=== PATIENT | male | born 1950 | race Caucasian/White ===

== ENCOUNTER 2021-01-25 11:23 | Outpatient (REF) | payer MEDICARE, SELFPAY ==
[2021-01-25 13:05] LABS: Estimated Average Glucose 171 mg/dL; Hemoglobin A1c % 7.6 %
[2021-01-25 13:20] LABS: Alanine Aminotransferase 41 U/L (0-40); Albumin Level 4.2 g/dL (3.5-5.0); Alkaline Phosphatase 75 U/L (39-117); Anion Gap 13 (12-20); Aspartate Amino Transferase 30 U/L (5-37); Bilirubin Total 0.7 mg/dL (0.0-1.0); Blood Urea Nitrogen 24 mg/dL (9-16); Calcium 8.5 mg/dL (8.4-10.2); Carbon Dioxide 24 mmol/L (22-29); Chloride 102 mmol/L (96-108); Cholesterol 155 mg/dL; Estimated Glomerular Filt Rate > 60; Glucose Fasting 151 mg/dL (60-99); HDL Cholesterol 58 mg/dL; LDL Cholesterol Calculated 70 mg/dl; Potassium 4.4 mmol/L (3.3-5.1); Sodium 135 mmol/L (135-145); Total Protein 6.1 g/dL (6.5-8.0); Triglycerides 137 mg/dL
== END 2021-01-25 11:24 | disposition home or self-care (01) ==
LOC: HO.MANLR 11:23
PROVIDERS: PCP Internal Medicine; Visit Provider Internal Medicine
DX: E10.8 Type 1 diabetes mellitus with unspecified complications (principal)
CPT/HCPCS: 36415; 80053; 80061; 83036

== ENCOUNTER 2021-05-26 08:18 | Outpatient (REF) | payer MEDICARE, SELFPAY ==
[2021-05-26 09:26] LABS: Estimated Average Glucose 154 mg/dL
[2021-05-26 09:39] LABS: Alanine Aminotransferase 18 U/L (0-40); Albumin Level 4.1 g/dL (3.5-5.0); Alkaline Phosphatase 69 U/L (39-117); Anion Gap 12 (12-20); Aspartate Amino Transferase 16 U/L (5-37); Bilirubin Total 0.5 mg/dL (0.0-1.0); Blood Urea Nitrogen 16 mg/dL (9-16); Calcium 9.5 mg/dL (8.4-10.2); Carbon Dioxide 25 mmol/L (22-29); Chloride 107 mmol/L (96-108); Estimated Glomerular Filt Rate > 60; Glucose Random 168 mg/dL (60-115); Potassium 4.7 mmol/L (3.3-5.1); Sodium 139 mmol/L (135-145); Total Protein 6.7 g/dL (6.5-8.0)
[2021-05-26 09:56] LABS: ~HepC Num1 0.11 S/CO (0.00-0.79); ~Hepatitis C Antibody Nonreactive (Nonreactive)
[2021-05-26 10:32] LABS: Creatinine Urine 32.78 mg/dL; Microalbum/Creatinine Ratio Ur 21.3 ug/mg cr
== END 2021-05-26 08:19 | disposition home or self-care (01) ==
LOC: HO.LAB 08:18
PROVIDERS: PCP Internal Medicine; Visit Provider Internal Medicine
DX: Z11.59 Encounter for screening for other viral diseases (principal); E10.8 Type 1 diabetes mellitus with unspecified complications
CPT/HCPCS: 36415; 80053; 82043; 83036; 86803

== ENCOUNTER 2022-01-16 10:27 | Outpatient (REF) | payer MEDICARE, SELFPAY ==
[2022-01-16 13:43] LABS: Estimated Average Glucose 163 mg/dL; Hemoglobin A1c % 7.3 %
[2022-01-16 13:45] LABS: Alanine Aminotransferase 21 U/L (0-40); Albumin Level 4.2 g/dL (3.5-5.0); Alkaline Phosphatase 80 U/L (39-117); Anion Gap 13 (12-20); Aspartate Amino Transferase 17 U/L (5-37); Bilirubin Total 0.8 mg/dL (0.0-1.0); Blood Urea Nitrogen 13 mg/dL (9-16); Calcium 9.4 mg/dL (8.4-10.2); Carbon Dioxide 24 mmol/L (22-29); Chloride 103 mmol/L (96-108); Cholesterol 254 mg/dL; Estimated Glomerular Filt Rate > 60; Glucose Fasting 151 mg/dL (60-99); HDL Cholesterol 48 mg/dL; LDL Cholesterol Calculated 170 mg/dl; Potassium 4.3 mmol/L (3.3-5.1); Sodium 136 mmol/L (135-145); Triglycerides 182 mg/dL
[2022-01-16 14:13] LABS: Creatinine Urine 15.96 mg/dL; Microalbum/Creatinine Ratio Ur 93.9 ug/mg cr
== END 2022-01-16 10:28 | disposition home or self-care (01) ==
LOC: HO.MANLDS 10:27
PROVIDERS: PCP Internal Medicine; Visit Provider Internal Medicine
DX: E10.8 Type 1 diabetes mellitus with unspecified complications (principal)
CPT/HCPCS: 36415; 80053; 80061; 82043; 83036

== ENCOUNTER 2022-07-24 16:19 | Outpatient (REF) | payer MEDICARE, SELFPAY | END 2022-07-24 16:20 | disposition home or self-care (01) | LOC: HO.MANLDS 16:19 | PROVIDERS: Visit Provider Internal Medicine | DX: Z13.89 Encounter for screening for other disorder (principal) ==

== ENCOUNTER 2022-07-25 14:32 | Outpatient (REF) | payer MEDICARE, SELFPAY ==
[2022-07-25 11:38] LABS: Estimated Average Glucose 146 mg/dL; Hemoglobin A1c % 6.7 %
[2022-07-25 12:05] LABS: Creatinine Urine 25.07 mg/dL; Microalbum/Creatinine Ratio Ur 103.7 ug/mg cr
[2022-07-25 12:18] LABS: Alanine Aminotransferase 23 U/L (0-40); Albumin Level 4.1 g/dL (3.5-5.0); Alkaline Phosphatase 60 U/L (39-117); Anion Gap 17 (12-20); Aspartate Amino Transferase 16 U/L (5-37); Bilirubin Total 0.5 mg/dL (0.0-1.0); Blood Urea Nitrogen 16 mg/dL (9-16); Calcium 9.4 mg/dL (8.4-10.2); Carbon Dioxide 26 mmol/L (22-29); Chloride 102 mmol/L (96-108); Cholesterol 260 mg/dL; Estimated Glomerular Filt Rate > 60; Glucose Random 145 mg/dL (60-115); HDL Cholesterol 76 mg/dL; LDL Cholesterol Calculated 161 mg/dl; Potassium 5.1 mmol/L (3.3-5.1); Sodium 140 mmol/L (135-145); Total Protein 6.8 g/dL (6.5-8.0); Triglycerides 115 mg/dL
== END 2022-07-25 14:33 | disposition home or self-care (01) ==
LOC: HO.MANLDS 14:32
PROVIDERS: Visit Provider Internal Medicine
DX: E10.8 Type 1 diabetes mellitus with unspecified complications (principal)
CPT/HCPCS: 36415; 80053; 80061; 82043; 83036

== ENCOUNTER 2022-11-27 15:09 | Outpatient (REF) | payer MEDICARE, SELFPAY ==
[2022-11-28 05:09] LABS: Estimated Average Glucose 166 mg/dL; Hemoglobin A1c % 7.4 %
== END 2022-11-27 15:10 | disposition home or self-care (01) ==
LOC: HO.MANLDS 15:09
PROVIDERS: Visit Provider Internal Medicine
DX: E10.8 Type 1 diabetes mellitus with unspecified complications (principal)
CPT/HCPCS: 36415; 83036

== ENCOUNTER 2023-02-21 13:59 | Emergency (ER) | payer MEDICARE, SELFPAY ==
--- NOTE | ~2023-02-21 | CT_ITS ---
EXAMINATION: CT ANGIOGRAM OF THE CHEST WITH AND WITHOUT CONTRAST (CT PULMONARY ANGIOGRAM FOR PE) CLINICAL INFORMATION: Reason for Exam acute on chronic SOB COMPARISON: None available. TECHNIQUE: Prior to contrast administration, noncontrast localization images were obtained. Subsequently, multidetector volumetric imaging was performed from the thoracic inlet to below the diaphragms following the administration of 65 mL Omnipaque 350 intravenous contrast. No contrast reaction reported Sagittal, coronal, and MIP oblique sagittal reformatted images were obtained on the CT workstation, uploaded to PACS, and reviewed. This CT examination was performed using dose optimization techniques as appropriate, variously including the following: *Automated exposure control *Adjustment of mA and/or kV according to patient size (this includes techniques or standardized protocols for targeted exams where dose is matched to indication/reason for exam; i.e. extremities or head) *Use of iterative reconstruction technique Total exam dose-length product 381 mGy-cm FINDINGS: QUALITY OF STUDY/CONTRAST BOLUS: Satisfactory. PULMONARY ARTERIES: No acute pulmonary emboli. THORACIC AORTA: No thoracic aortic aneurysm or dissection. LUNG: Central airways are patent. No significant bronchial wall thickening is seen. No bronchiectasis. No significant confluent parenchymal disease. There is bibasilar dependent groundglass opacity present consistent with dependent atelectasis. There are bilateral scattered sub-4 mm densities. There is a region of discoid density seen within the right middle lobe medially adjacent to the pleura likely representing atelectasis or scarring. There is a spiculated nodule seen within the left upper lobe with pleural attachment as well as attachment to major fissure. The lesion is not calcified and measures approximately 1.5 x 1.2 x 1.4 cm in size. This can be seen on image [address] series #7. PLEURA: No pleural effusion or pneumothorax. MEDIASTINUM: Heart normal size. No pericardial effusion. No mediastinal or hilar lymphadenopathy identified. No evidence of septal bowing or right heart strain. CORONARY ARTERY CALCIFICATION: Trace identified. CHEST WALL/AXILLA: No axillary or internal mammary lymphadenopathy. OSSEOUS STRUCTURES: No acute or suspicious osseous abnormality. 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 UPPER ABDOMEN: There are right renal cyst present. No adrenal gland lesions identified. No reflux of contrast into the hepatic veins to suggest elevated right heart pressures. CT/CT angio chest PE protocol IMPRESSION: No evidence of acute pulmonary artery embolism. No evidence of thoracic aortic dissection or aneurysm. Suspicious left upper lobe lung lesion for which PET/CT would be of help in further evaluation. VTE: negative
--- NOTE | ~2023-02-21 | XR_ITS ---
EXAMINATION: XR CHEST CLINICAL INFORMATION: Chest pain COMPARISON: None available. TECHNIQUE: 2 views of the chest were obtained. FINDINGS: The lungs are well-expanded and clear. The heart size and pulmonary vascularity is normal. There is moderate spondylosis right thoracic spine with ossification of anterior longitudinal ligament. There is posterior hardware lower cervical spine. XR/XR chest 2V IMPRESSION: No acute cardiopulmonary process seen.
--- NOTE | 2023-02-21 14:01 | ED_ITS ---
HPI - SOB/Dyspnea General Chief Complaint: Upper Respiratory Symptoms <Marina Bartlett NP - Last Filed: 02/21/23 14:06> Stated Complaint: SOB <Marina Bartlett NP - Last Filed: 02/21/23 14:06> Time Seen by Provider: 02/21/23 14:30 <Marina Bartlett NP - Last Filed: 02/21/23 14:06> Source: patient <Pola Lancaster MD - Last Filed: 02/21/23 17:19> Mode of arrival: ambulatory <Pola Lancaster MD - Last Filed: 02/21/23 17:19> Limitations: no limitations <Pola Lancaster MD - Last Filed: 02/21/23 17:19> History of Present Illness HPI Narrative: 72-year-old male with history of diabetes presents with shortness of breath. Patient had COVID in October of last year. Since then patient complains of long COVID symptoms. Symptoms include brain fog, shortness of marichuy ath, fatigue, myalgias. Symptoms are fairly constant. There is no clear relieving or exacerbating features regarding most of his symptoms. However, his shortness of breath has become progressively worse over recent times. He describes the symptoms as severe. Even tiny issues can cause him to be short of breath. Denies any chest pain or coughing. She has had no fevers or chills. Patient has chronic bilateral lower extremity edema which is not changed from previous. Patient denies a history of PE or DVT. He is not currently on any blood thinning medications. <Pola Lancaster MD - Last Filed: 02/21/23 17:19> Related Data Home Medications: Previous Rx's Medication Instructions Recorded albuterol sulfate 90 mcg/actuation 1 inh inhalation QID PRN shortness 02/21/23 aerosol inhaler of breath or wheezing #8.5 grams fluticasone 250 mcg-salmeterol 50 1 inh inhalation Q12H #1 ea 02/21/23 mcg/dose blistr powdr for inhalation (Advair Diskus) <Marina Bartlett NP - Last Filed: 02/21/23 14:06> Allergies/Adverse Reactions: Allergies Allergy/AdvReac Type Severity Reaction Status Date / Time NSAIDS (Non-Steroidal AdvReac Intermediate DIARRHEA Unverified 04/04/21 11:24 Anti-Inflamma [NSAIDS (NON-STEROIDAL ANTI-INFLAMMA] <Marina Bartlett NP - Last Filed: 02/21/23 14:06> FOR[facility]LY [facility] Social History Social History: Social History Advance Directives: No <Marina Bartlett NP - Last Filed: 02/21/23 14:06> Physical Exam Vital Signs: Vital Signs: Last Vital Signs Temp 98 F 02/21/23 14:04 Pulse 76 02/21/23 16:20 Resp 18 02/21/23 16:20 BP 147/70 H 02/21/23 14:04 Pulse Ox 98 02/21/23 14:04 O2 Del Method Room Air 02/21/23 14:04 BMI result Body Mass Index 30.9 <Marina Bartlett NP - Last Filed: 02/21/23 14:06> Vital Signs: Last Vital Signs Temp 98 F 02/21/23 14:04 Pulse 76 02/21/23 16:20 Resp 18 02/21/23 16:20 BP 147/70 H 02/21/23 14:04 Pulse Ox 98 02/21/23 14:04 O2 Del Method Room Air 02/21/23 14:04 BMI result Body Mass Index 30.9 <Pola Lancaster MD - Last Filed: 02/21/23 17:19> GEN: Well developed, no acute distress, alert, oriented, uncomfortable appearing HEENT: Normocephalic, atraumatic, normal external ears, nose appears normal, no oropharyngeal edema or exudates Eyes: Normal to appearance Neck: Supple, no lymphadenopathy Respiratory: Conversational dyspnea, prolonged expiration, expiratory wheezes Cardiovascular: Regular rate and rhythm, no murmurs rubs or gallops Abdomen: Soft, nontender, nondistended, no guarding, no rebound Back: No CVA tenderness Extremities: No clubbing cyanosis Neurologic: No focal neurologic deficits, cranial nerves 2-12 intact, strength is 5/5 bilaterally, gait normal Skin: No rash <Pola Lancaster MD - Last Filed: 02/21/23 17:19> Course Course Course Narrative: This is a rapid medical exam. Deferred additional HPI, ROS, PE to primary provider. 72 yo male with history of HTN, DM, arthritis, IBS, who had COVID in October w/ subequent long haul COVID here with complaints of shortness of breath x several weeks, intermittent chest pain. NO fever, cough, leg swelling o r leg pain. WIll obtain labs, EKG, CXR, covid screen VSS <Marina Bartlett NP - Last Filed: 02/21/23 14:06> Reevaluation(s) Reevaluation #1: I have discussed results with the patient. I did recommend a course of oral steroids. Patient will likely not agree to this in follow-up. Will prescribe albuterol. Will recommend follow-up regarding abnormal finding in the left upper lobe. <Pola Lancaster MD - Last Filed: 02/21/23 17:19> Time: 17:10 <Pola Lancaster MD - Last Filed: 02/21/23 17:19> Medications Administered Discontinued Medications Generic Name Dose Route Start Last Admin Trade Name Freq PRN Reason Stop Dose Admin Albuterol Sulfate 2.5 mg 02/21/23 14:59 02/21/23 16:20 Albuterol Sulfate (0.083%) 2.5 Mg/3 Ml Vial.Neb INHALE 02/21/23 15:00 2.5 mg ONCE ONE Administration Iohexol 100 ml 02/21/23 15:16 02/21/23 15:16 Iohexol 350 Mg/Ml 100 Ml Infus..Btl IV 02/21/23 15:17 65 ml ONCE ONE Administration <Marina Bartlett NP - Last Filed: 02/21/23 14:06> Medications Administered Discontinued Medications Generic Name Dose Route Start Last Admin Trade Name Freq PRN Reason Stop Dose Admin Albuterol Sulfate 2.5 mg 02/21/23 14:59 02/21/23 16:20 Albuterol Sulfate (0.083%) 2.5 Mg/3 Ml Vial.Neb INHALE 02/21/23 15:00 2.5 mg ONCE ONE Administration Iohexol 100 ml 02/21/23 15:16 02/21/23 15:16 Iohexol 350 Mg/Ml 100 Ml Infus..Btl IV 02/21/23 15:17 65 ml ONCE ONE Administration <Pola Lancaster MD - Last Filed: 02/21/23 17:19> Medical Decision Making Medical Decision Making MDM Narrative: 72-year-old male with history of diabetes presents with long COVID symptoms. He presents today predominantly because of progressive shortness of breath. My evaluation, patient was conversational in short of breath, prolonged expiration and expiratory wheezes. His oxygen saturation is 98% on room air. He is not cyanotic. Differential diagnosis can include reactive airway disease, asthma, COPD, pulmonary embolus, dyspnea, pneumonia, CHF. Patient will have an extensive workup including a CT angiogram of the chest to rule out pulmonary embolus. <Pola Lancaster MD - Last Filed: 02/21/23 17:19> Differential Diagnosis Differential Diagnoses: The differential diagnosis associated with the presentation includes (PE, COPD, asthma, reactive airway disease, shortness of breath, pneumonia, CHF) <Pola Lancaster MD - Last Filed: 02/21/23 17:19> Acute dyspnea <Pola Lancaster MD - Last Filed: 02/21/23 17:19> Admission/Observation Consideration of admission/observation: Escalation of care including admission/observation considered <Pola Lancaster MD - Last Filed: 02/21/23 17:19> Lab Data MDM Lab Attestation statement: I reviewed the patient's lab results. <Pola Lancaster MD - Last Filed: 02/21/23 17:19> Result Diagrams: 02/21/23 14:31 02/21/23 14:31 <Marina Bartlett NP - Last Filed: 02/21/23 14:06> Labs: Lab Results 02/21/23 02/21/23 02/21/23 Range/Units 14:31 14:31 14:31 WBC 9.6 (4.8-10.8) X10*3/uL RBC 4.60 (4.60-5.80) X10*6/uL Hgb 14.2 (14.0-18.0) g/dl Hct 41.1 L (42.0-52.0) % MCV 89.3 (80.0-98.0) fL MCH 30.9 (27.0-33.0) pg MCHC 34.5 (31.0-36.0) g/dl RDW 12.2 (11.0-16.0) % Plt Count 317 (160-400) X10*3/uL MPV 9.0 L (9.4-12.4) fL Immature Gran % (Auto) 0.6 H (0.0-0.4) % Neut % (Auto) 79.1 H (45-73) % Lymph % (Auto) 12.5 L (20-40) % [place] % (Auto) 6.8 (2-11) % Eos % (Auto) 0.6 (0-4) % Baso % (Auto) 0.4 (0-2) % Lymph # (Auto) 1.2 (1.2-4.9) X10*3/uL [place] # (Auto) 0.7 (0.1-1.2) X10*3/uL Eos # (Auto) 0.1 (0.0-0.4) X10*3/uL Baso # (Auto) 0.0 (0.0-0.2) X10*3/uL Abs Immat Gran (auto) 0.06 H (0.00-0.03) X10*3/uL Absolute Neuts (auto) 7.6 (2.0-8.3) x10*3/uL Absolute Nucleated RBC 0.000 (0.0-0.012) X10*3/uL Nucleated RBC % (auto) 0.0 (0.0-0.2) /100WBC PT 11.1 (10.0-13.1) SEC INR 1.0 (0.9-1.1) Sodium 140 (135-145) mmol/L Potassium 4.4 (3.3-5.1) mmol/L Chloride 107 (96-108) mmol/L Carbon Dioxide 23 (22-29) mmol/L Anion Gap 14 (12-20) BUN 15 (9-16) mg/dL Creatinine 0.92 (0.5-1.4) mg/dL Estim Creat Clear Calc 85.2 Estimated GFR > 60 Random Glucose 190 H (60-115) mg/dL Calcium 9.4 (8.4-10.2) mg/dL Magnesium 2.0 (1.6-2.6) mg/dL Total Bilirubin 0.5 (0.0-1.0) mg/dL Direct Bilirubin 0.1 (0.0-0.5) mg/dL AST 37 (5-37) U/L ALT 50 H (0-40) U/L Alkaline Phosphatase 77 (39-117) U/L Troponin I High Sens (<3.5-35.0) ng/L B-Natriuretic Peptide (<100) pg/mL Total Protein 6.8 (6.5-8.0) g/dL Albumin 4.2 (3.5-5.0) g/dL 02/21/23 02/21/23 Range/Units 14:31 14:31 WBC (4.8-10.8) X10*3/uL RBC (4.60-5.80) X10*6/uL Hgb (14.0-18.0) g/dl Hct (42.0-52.0) % MCV (80.0-98.0) fL MCH (27.0-33.0) pg MCHC (31.0-36.0) g/dl RDW (11.0-16.0) % Plt Count (160-400) X10*3/uL MPV (9.4-12.4) fL Immature Gran % (Auto) (0.0-0.4) % Neut % (Auto) (45-73) % Lymph % (Auto) (20-40) % [place] % (Auto) (2-11) % Eos % (Auto) (0-4) % Baso % (Auto) (0-2) % Lymph # (Auto) (1.2-4.9) X10*3/uL [place] # (Auto) (0.1-1.2) X10*3/uL Eos # (Auto) (0.0-0.4) X10*3/uL Baso # (Auto) (0.0-0.2) X10*3/uL Abs Immat Gran (auto) (0.00-0.03) X10*3/uL Absolute Neuts (auto) (2.0-8.3) x10*3/uL Absolute Nucleated RBC (0.0-0.012) X10*3/uL Nucleated RBC % (auto) (0.0-0.2) /100WBC PT (10.0-13.1) SEC INR (0.9-1.1) Sodium (135-145) mmol/L Potassium (3.3-5.1) mmol/L Chloride (96-108) mmol/L Carbon Dioxide (22-29) mmol/L Anion Gap (12-20) BUN (9-16) mg/dL Creatinine (0.5-1.4) mg/dL Estim Creat Clear Calc Estimated GFR Random Glucose (60-115) mg/dL Calcium (8.4-10.2) mg/dL Magnesium (1.6-2.6) mg/dL Total Bilirubin (0.0-1.0) mg/dL Direct Bilirubin (0.0-0.5) mg/dL AST (5-37) U/L ALT (0-40) U/L Alkaline Phosphatase (39-117) U/L Troponin I High Sens < 2.7 (<3.5-35.0) ng/L B-Natriuretic Peptide < 10 (<100) pg/mL Total Protein (6.5-8.0) g/dL Albumin (3.5-5.0) g/dL <Marina Bartlett, INTERMODAL DISPATCHER - Last Filed: 02/21/23 14:06> Lab Results 02/21/23 02/21/23 02/21/23 Range/Units 14:31 14:31 14:31 WBC 9.6 (4.8-10.8) X10*3/uL RBC 4.60 (4.60-5.80) X10*6/uL Hgb 14.2 (14.0-18.0) g/dl Hct 41.1 L (42.0-52.0) % MCV 89.3 (80.0-98.0) fL MCH 30.9 (27.0-33.0) pg MCHC 34.5 (31.0-36.0) g/dl RDW 12.2 (11.0-16.0) % Plt Count 317 (160-400) X10*3/uL MPV 9.0 L (9.4-12.4) fL Immature Gran % (Auto) 0.6 H (0.0-0.4) % Neut % (Auto) 79.1 H (45-73) % Lymph % (Auto) 12.5 L (20-40) % [place] % (Auto) 6.8 (2-11) % Eos % (Auto) 0.6 (0-4) % Baso % (Auto) 0.4 (0-2) % Lymph # (Auto) 1.2 (1.2-4.9) X10*3/uL [place] # (Auto) 0.7 (0.1-1.2) X10*3/uL Eos # (Auto) 0.1 (0.0-0.4) X10*3/uL Baso # (Auto) 0.0 (0.0-0.2) X10*3/uL Abs Immat Gran (auto) 0.06 H (0.00-0.03) X10*3/uL Absolute Neuts (auto) 7.6 (2.0-8.3) x10*3/uL Absolute Nucleated RBC 0.000 (0.0-0.012) X10*3/uL Nucleated RBC % (auto) 0.0 (0.0-0.2) /100WBC PT 11.1 (10.0-13.1) SEC INR 1.0 (0.9-1.1) Sodium 140 (135-145) mmol/L Potassium 4.4 (3.3-5.1) mmol/L Chloride 107 (96-108) mmol/L Carbon Dioxide 23 (22-29) mmol/L Anion Gap 14 (12-20) BUN 15 (9-16) mg/dL Creatinine 0.92 (0.5-1.4) mg/dL Estim Creat Clear Calc 85.2 Estimated GFR > 60 Random Glucose 190 H (60-115) mg/dL Calcium 9.4 (8.4-10.2) mg/dL Magnesium 2.0 (1.6-2.6) mg/dL Total Bilirubin 0.5 (0.0-1.0) mg/dL Direct Bilirubin 0.1 (0.0-0.5) mg/dL AST 37 (5-37) U/L ALT 50 H (0-40) U/L Alkaline Phosphatase 77 (39-117) U/L Troponin I High Sens (<3.5-35.0) ng/L B-Natriuretic Peptide (<100) pg/mL Total Protein 6.8 (6.5-8.0) g/dL Albumin 4.2 (3.5-5.0) g/dL 02/21/23 02/21/23 Range/Units 14:31 14:31 WBC (4.8-10.8) X10*3/uL RBC (4.60-5.80) X10*6/uL Hgb (14.0-18.0) g/dl Hct (42.0-52.0) % MCV (80.0-98.0) fL MCH (27.0-33.0) pg MCHC (31.0-36.0) g/dl RDW (11.0-16.0) % Plt Count (160-400) X10*3/uL MPV (9.4-12.4) fL Immature Gran % (Auto) (0.0-0.4) % Neut % (Auto) (45-73) % Lymph % (Auto) (20-40) % [place] % (Auto) (2-11) % Eos % (Auto) (0-4) % Baso % (Auto) (0-2) % Lymph # (Auto) (1.2-4.9) X10*3/uL [place] # (Auto) (0.1-1.2) X10*3/uL Eos # (Auto) (0.0-0.4) X10*3/uL Baso # (Auto) (0.0-0.2) X10*3/uL Abs Immat Gran (auto) (0.00-0.03) X10*3/uL Absolute Neuts (auto) (2.0-8.3) x10*3/uL Absolute Nucleated RBC (0.0-0.012) X10*3/uL Nucleated RBC % (auto) (0.0-0.2) /100WBC PT (10.0-13.1) SEC INR (0.9-1.1) Sodium (135-145) mmol/L Potassium (3.3-5.1) mmol/L Chloride (96-108) mmol/L Carbon Dioxide (22-29) mmol/L Anion Gap (12-20) BUN (9-16) mg/dL Creatinine (0.5-1.4) mg/dL Estim Creat Clear Calc Estimated GFR Random Glucose (60-115) mg/dL Calcium (8.4-10.2) mg/dL Magnesium (1.6-2.6) mg/dL Total Bilirubin (0.0-1.0) mg/dL Direct Bilirubin (0.0-0.5) mg/dL AST (5-37) U/L ALT (0-40) U/L Alkaline Phosphatase (39-117) U/L Troponin I High Sens < 2.7 (<3.5-35.0) ng/L B-Natriuretic Peptide < 10 (<100) pg/mL Total Protein (6.5-8.0) g/dL Albumin (3.5-5.0) g/dL <Pola Lancaster MD - Last Filed: 02/21/23 17:19> Independent Interpretation I performed an independent interpretation of an: EKG (Normal sinus rhythm heart rate 84, left axis deviation, no acute ST elevations or depressions, incomplete right bundle-branch block, nonspecific T- wave changes no comparison available) and Plain X-Ray (Chest: No acute pulmonary disease) <Pola Lancaster MD - Last Filed: 02/21/23 17:19> Radiology Impression Discussion of test interpretation with radiology: I have reviewed the radiologist's reading. ( XR/XR chest 2V IMPRESSION: No acute cardiopulmonary process seen. Dictated By:Nadir Soares MDSigned By:<Electronically signed by Nadir Soares MD in [place]>02/21/23 [id number]) <Pola Lancaster MD - Last Filed: 02/21/23 17:19> Radiologist Impression: CT scan official report shows no evidence of acute pulmonary artery embolism. There is no evidence of thoracic aortic dissection or aneurysm. There is a suspicious left upper lobe lung lesion which they recommended PET scan. <Pola Lancaster MD - Last Filed: 02/21/23 17:19> Chronic Conditions Patient?s care impacted by: Diabetes <Pola Lancaster MD - Last Filed: 02/21/23 17:19> Discharge Plan Discharge Clinical Impression: COVID-19 long hauler, Acute dyspnea, Abnormal CT lung screening <Marina Bartlett NP - Last Filed: 02/21/23 14:06> Patient Disposition: Home, Self-Care <Marina Bartlett NP - Last Filed: 02/21/23 14:06> Instructions: How to Use a Metered-Dose Inhaler (ED), Wheezing (ED) <Marina Bartlett NP - Last Filed: 02/21/23 14:06> Additional Instructions: You had a CT scan today which did identify a lesion in the left upper lobe. They are recommending a PET/CT scan for further evaluation. He should discuss this with her primary care provider. He consider follow-up with a industrial organization manager as well. <Marina Bartlett NP - Last Filed: 02/21/23 14:06> Prescriptions: New fluticasone propion-salmeterol [Advair Diskus] 250-50 mcg/dose blister with device 1 inh inhalation Q12H Qty: 1 0RF albuterol sulfate 90 mcg/actuation HFA aerosol inhaler 1 inh inhalation QID PRN (Reason: shortness of breath or wheezing) Qty: 8.5 0RF <Marina Bartlett NP - Last Filed: 02/21/23 14:06> Referrals: [facility] [Provider Group] Sandeep Preston MD [Primary Care Provider] - 1 week <Marina Bartlett NP - Last Filed: 02/21/23 14:06>
[2023-02-21 14:04] VITALS: BP 147/70; PULSE 86; RESP 18; TEMP 36.6; O2SAT 98; BMI 30.9
--- NOTE | 2023-02-21 14:05 | ECG_ITS ---
Test Reason : sob Blood Pressure : / mmHG Vent. Rate : 084 BPM Atrial Rate : 084 BPM P-R Int : 194 ms QRS Dur : 096 ms QT Int : 380 ms P-R-T Axes : 032 -57 043 degrees QTc Int : 449 ms Normal sinus rhythm Left anterior fascicular block Abnormal ECG No previous ECGs available Referred By: Marina Bartlett Electronically Signed By:MOISÉS ELIAS MD
[2023-02-21 14:39] LABS: MANUAL DIFF FLAG NO
[2023-02-21 14:46] LABS: Basophils Percent Auto 0.4 % (0-2); Eosinophils Absolute Auto 0.1 X10*3/uL (0.0-0.4); Eosinophils Percent Auto 0.6 % (0-4); Hematocrit 41.1 % (42.0-52.0); Hemoglobin 14.2 g/dl (14.0-18.0); Imm Gran Abs Auto 0.06 X10*3/uL (0.00-0.03); Imm Gran Pct Auto 0.6 % (0.0-0.4); Lymphocytes Absolute Auto 1.2 X10*3/uL (1.2-4.9); Lymphocytes Percent Auto 12.5 % (20-40); Mean Corpuscular HGB Conc 34.5 g/dl (31.0-36.0); Mean Corpuscular Hemoglobin 30.9 pg (27.0-33.0); Mean Corpuscular Volume 89.3 fL (80.0-98.0); Monocytes Absolute Auto 0.7 X10*3/uL (0.1-1.2); Monocytes Percent Auto 6.8 % (2-11); Neutrophils Absolute Auto 7.6 x10*3/uL (2.0-8.3); Neutrophils Percent Auto 79.1 % (45-73); Platelet Count 317 X10*3/uL (160-400); Red Cell Distribution Width 12.2 % (11.0-16.0); White Blood Count 9.6 X10*3/uL (4.8-10.8)
[2023-02-21 14:52] LABS: Prothrombin Time 11.1 SEC (10.0-13.1)
[2023-02-21 15:01] LABS: Alanine Aminotransferase 50 U/L (0-40); Albumin Level 4.2 g/dL (3.5-5.0); Alkaline Phosphatase 77 U/L (39-117); Anion Gap 14 (12-20); Aspartate Amino Transferase 37 U/L (5-37); Bilirubin Direct 0.1 mg/dL (0.0-0.5); Bilirubin Total 0.5 mg/dL (0.0-1.0); Blood Urea Nitrogen 15 mg/dL (9-16); Calcium 9.4 mg/dL (8.4-10.2); Carbon Dioxide 23 mmol/L (22-29); Chloride 107 mmol/L (96-108); Creatinine Clr Calc Pharmacy 85.2; Estimated Glomerular Filt Rate > 60; Glucose Random 190 mg/dL (60-115); Potassium 4.4 mmol/L (3.3-5.1); Sodium 140 mmol/L (135-145); Total Protein 6.8 g/dL (6.5-8.0)
[2023-02-21 15:05] LABS: B Type Natriuretic Peptide < 10 pg/mL (<100)
[2023-02-21 15:14] LABS: Troponin-I High Sensitivity < 2.7 ng/L (<3.5-35.0)
[2023-02-21] MEDS: iohexoL 350 MG/ML 100 ML INFUS..BTL IV (15:16)
[2023-02-21 16:20] VITALS: PULSE 76; RESP 18; O2SAT 94
[2023-02-21] MEDS: Albuterol Sulfate (0.083%) 2.5 MG/3 ML VIAL.NEB INHALE (16:20)
[2023-02-21 19:00] LABS: COVID-19 Test Negative (Negative); IDNOW Serial# BCCEAD1C
== END 2023-02-21 18:07 | disposition home or self-care (01) ==
PROVIDERS: Nurse Practitioner Family; Emergency Provider Emergency Medicine; PCP Internal Medicine
DX: R06.02 Shortness of breath (principal); U07.1 COVID-19; R94.31 Abnormal electrocardiogram [ECG] [EKG]; Z79.899 Other long term (current) drug therapy
CPT/HCPCS: 36415; 71046; 71275; 80048; 80076; 83735; 83880; 84484; 85025; 85610; 87635; 93005; 94640; 99284; Q9967

== ENCOUNTER 2023-03-15 11:09 | Outpatient (REF) | payer MEDICARE, SELFPAY ==
[2023-03-15 14:28] LABS: Estimated Average Glucose 160 mg/dL; Hemoglobin A1c % 7.2 %
== END 2023-03-15 11:10 | disposition home or self-care (01) ==
LOC: HO.MANLDS 11:09
PROVIDERS: Visit Provider Internal Medicine
DX: E10.8 Type 1 diabetes mellitus with unspecified complications (principal)
CPT/HCPCS: 36415; 83036

== ENCOUNTER 2023-07-22 10:57 | Outpatient (REF) | payer MEDICARE, SELFPAY ==
[2023-07-22 13:45] LABS: Estimated Average Glucose 137 mg/dL; Hemoglobin A1c % 6.4 % (<6.0)
[2023-07-22 13:51] LABS: Alanine Aminotransferase 25 U/L (0-40); Albumin Level 4.1 g/dL (3.5-5.0); Alkaline Phosphatase 67 U/L (39-117); Anion Gap 13 (12-20); Aspartate Amino Transferase 22 U/L (5-37); Bilirubin Total 0.3 mg/dL (0.0-1.0); Blood Urea Nitrogen 13 mg/dL (9-16); Calcium 9.4 mg/dL (8.4-10.2); Carbon Dioxide 26 mmol/L (22-29); Chloride 105 mmol/L (96-108); Estimated Glomerular Filt Rate > 60; Glucose Random 113 mg/dL (60-115); Potassium 4.3 mmol/L (3.3-5.1); Sodium 140 mmol/L (135-145); Total Protein 6.7 g/dL (6.5-8.0)
== END 2023-07-22 10:58 | disposition home or self-care (01) ==
LOC: HO.MANLDS 10:57
PROVIDERS: Visit Provider Internal Medicine
DX: E10.8 Type 1 diabetes mellitus with unspecified complications (principal)
CPT/HCPCS: 36415; 80053; 83036

== ENCOUNTER 2023-10-25 11:43 | Outpatient (REF) | payer MEDICARE, SELFPAY ==
[2023-10-25 13:54] LABS: Estimated Average Glucose 148 mg/dL; Hemoglobin A1c % 6.8 % (<6.0); Total Hemoglobin (HGBA1C) 3432.8215 umol/L
[2023-10-25 14:07] LABS: Alanine Aminotransferase 38 U/L (0-40); Albumin Level 4.3 g/dL (3.5-5.0); Alkaline Phosphatase 71 U/L (39-117); Anion Gap 14 (12-20); Aspartate Amino Transferase 32 U/L (5-37); Bilirubin Total 0.4 mg/dL (0.0-1.0); Blood Urea Nitrogen 14 mg/dL (9-16); Calcium 9.5 mg/dL (8.4-10.2); Carbon Dioxide 25 mmol/L (22-29); Chloride 103 mmol/L (96-108); Cholesterol 167 mg/dL (<200); Estimated Glomerular Filt Rate > 60; Glucose Random 116 mg/dL (60-115); HDL Cholesterol 84 mg/dL (>40); LDL Cholesterol Calculated 70 mg/dL (<100); Potassium 4.1 mmol/L (3.3-5.1); Sodium 138 mmol/L (135-145); Total Protein 7.2 g/dL (6.5-8.0); Triglycerides 65 mg/dL (<150)
== END 2023-10-25 11:44 | disposition home or self-care (01) ==
LOC: HO.MANLDS 11:43
PROVIDERS: Visit Provider Internal Medicine
DX: E11.9 Type 2 diabetes mellitus without complications (principal)
CPT/HCPCS: 36415; 80053; 80061; 83036

== ENCOUNTER 2024-01-10 04:39 | Emergency (ER) | payer MEDICARE, SELFPAY ==
[2024-01-10 04:49] VITALS: BP 158/90; PULSE 65
[2024-01-10 04:50] VITALS: BP 147/60; PULSE 66; RESP 16; TEMP 36.6; O2SAT 99; BMI 29.1
[2024-01-10 05:18] LABS: Glucose, Whole Blood 188 mg/dL (60-115)
[2024-01-10 05:22] LABS: Basophils Percent Auto 0.3 % (0-2); Eosinophils Absolute Auto 0.1 X10*3/uL (0.0-0.4); Eosinophils Percent Auto 0.6 % (0-4); Hematocrit 37.8 % (42.0-52.0); Hemoglobin 13.1 g/dl (14.0-18.0); Imm Gran Abs Auto 0.05 X10*3/uL (0.00-0.03); Imm Gran Pct Auto 0.6 % (0.0-0.4); Lymphocytes Absolute Auto 0.9 X10*3/uL (1.2-4.9); Lymphocytes Percent Auto 11.5 % (20-40); MANUAL DIFF FLAG NO; Mean Corpuscular HGB Conc 34.7 g/dl (31.0-36.0); Mean Corpuscular Hemoglobin 31.6 pg (27.0-33.0); Mean Corpuscular Volume 91.3 fL (80.0-98.0); Mean Platelet Volume 8.9 fL (9.4-12.4); Monocytes Absolute Auto 0.8 X10*3/uL (0.1-1.2); Monocytes Percent Auto 10.7 % (2-11); Neutrophils Absolute Auto 5.9 x10*3/uL (2.0-8.3); Neutrophils Percent Auto 76.3 % (45-73); Platelet Count 266 X10*3/uL (160-400); Red Blood Count 4.14 X10*6/uL (4.60-5.80); White Blood Count 7.8 X10*3/uL (4.8-10.8)
[2024-01-10 05:34] VITALS: BP 150/84; PULSE 68; RESP 16; TEMP 36.6; O2SAT 99
[2024-01-10 05:36] LABS: Alanine Aminotransferase 25 U/L (0-40); Alkaline Phosphatase 72 U/L (39-117); Anion Gap 14 (12-20); Aspartate Amino Transferase 19 U/L (5-37); Bilirubin Total 0.3 mg/dL (0.0-1.0); Blood Urea Nitrogen 15 mg/dL (9-16); Calcium 9.6 mg/dL (8.4-10.2); Carbon Dioxide 21 mmol/L (22-29); Chloride 106 mmol/L (96-108); Creatinine Clr Calc Pharmacy 80.8; Estimated Glomerular Filt Rate > 60; Glucose Random 200 mg/dL (60-115); Potassium 4.4 mmol/L (3.3-5.1); Sodium 137 mmol/L (135-145); Total Protein 6.6 g/dL (6.5-8.0)
[2024-01-10 06:27] VITALS: BP 131/62; PULSE 63; RESP 16; TEMP 36.6; O2SAT 99
[2024-01-10 06:35] LABS: Appearance Urine Clear; Color Urine Yellow; Glucose Urine UA 250 mg/dL (Negative); Leukocyte Esterase Urine Trace (Negative); Nitrite Urine Negative (Negative); PH 5.5 (5.0-9.0); Specific Gravity - Urine 1.015 (1.005-1.025); UMIC TRIGGER UACC YES; Urine Blood Negative (Negative); Urine Ketones 15 mg/dL (Negative); Urine Protein Trace mg/dL (Neg-Trace)
[2024-01-10 06:40] LABS: Bacteria Urine None Seen (None Seen); Hyaline Casts Urine 0-2 /LPF (0-2); RBC Urine 0-2 /HPF (0-2); Squamous Epithelial Cell Urine 0-2 /HPF (0-2); UACC Culture Trigger YES
--- NOTE | 2024-01-10 06:45 | ED.GENADULT ---
HPI - General Adult General Chief complaint: Back Pain/Injury Stated complaint: left flank pain Time Seen by Provider: 01/10/24 05:22 Source: patient Mode of arrival: EMS History of Present Illness HPI narrative: 73-year-old male with complaints of left flank pain that started approximately 0300 this morning and was not associated with any nausea, vomiting, fever, chills or dysuria. Patient denies any history of renal colic and states that this time that the pain has almost completely resolved. Patient does endorse a history of IBS and states that he has been having some difficulty with controlling it secondary to long COVID. Related Data Previous Rx's Medication Instructions Recorded albuterol sulfate 90 mcg/actuation 1 inh inhalation QID PRN shortness 02/21/23 aerosol inhaler of breath or wheezing #8.5 grams fluticasone 250 mcg-salmeterol 50 1 inh inhalation Q12H #1 ea 02/21/23 mcg/dose blistr powdr for inhalation (Advair Diskus) Allergies Allergy/AdvReac Type Severity Reaction Status Date / Time codeine Allergy Itching Verified 01/10/24 04:56 NSAIDS (Non-Steroidal AdvReac Intermediate DIARRHEA Verified 01/10/24 04:55 Anti-Inflamma [NSAIDS (NON-STEROIDAL ANTI-INFLAMMA] Review of Systems Review of Systems: Pertinent positives and negatives as stated in HPI PMFSH Past Medical History Source: nursing notes reviewed Social History Social History Smoked in Last 30 Days: No Use of substances other than those prescribed or required for medical reasons: No Advance Directives: No Advance Directives Information Provided: No Physical Exam ED Vital Signs: Vital Signs - 24 hr 01/10/24 04:50 01/10/24 05:34 01/10/24 06:27 Temperature 98 F 98 F 98 F Pulse Rate 66 68 63 Respiratory Rate 16 16 16 Blood Pressure 147/60 H 150/84 H 131/62 Pulse Oximetry 99 99 99 Oxygen Delivery Method Room Air Room Air Room Air Oxygen Flow Rate 0 BMI result Body Mass Index 29.1 VITAL SIGNS: Reviewed. GENERAL: Well developed, well nourished, in no acute distress. HEAD: Normocephalic/atraumatic EYES: PERRLA, EOMI LUNGS: Normal breath sounds. No adventitious sounds or accessory muscle use. SpO2<99> CARDIOVASCULAR: Regular rate and rhythm without noted murmurs ABDOMEN: Soft, non-tender, non-distended with bowel sounds. MUSCULOSKELETAL: No tenderness, deformities, or effusions noted on gross inspection. EXTREMITIES: No cyanosis, clubbing or edema. SKIN: Inspection of the skin reveals no rashes NEUROLOGIC: Alert and oriented x 4. Strength and sensation to light touch were grossly intact x 4. Medical Decision Making Medical Decision Making [facility] Narrative: 73-year-old male with history and clinical presentation, DDX: Musculoskeletal, urinary tract infection, IBS, possibility of renal colic but no clinical suspicion for diverticulitis or bowel obstruction. I reviewed all investigations and hematologic indices are negative for leukocytosis and there is no thrombocytopenia but there is a noted normocytic anemia and otherwise patient is afebrile with no urinary complaints in completely resolved abdominal discomfort. Chemistry indices are not significant for SAIRA or electrolyte/liver enzyme derangements. Urinalysis is negative for urinary tract infection or hematuria. Patient has had good resolution of his discomfort after application of a lidocaine patch and given patient's workup and resolution of symptoms I do suspect that this was musculoskeletal in nature knee is otherwise discharged home with instructions follow-up with primary care doctor. Differential Diagnosis Differential Diagnoses: The differential diagnosis associated with the presentation includes Please see the discussion above Admission/Observation Consideration of admission/observation: Escalation of care including admission/observation considered Please see the discussion above Lab Data [facility] Lab Attestation statement: I reviewed the patient's lab results. Please see the discussion above 01/10/24 05:10 01/10/24 05:10 Labs: Lab Results 01/10/24 01/10/24 01/10/24 Range/Units 05:10 05:14 06:26 WBC 7.8 (4.8-10.8) X10*3/uL RBC 4.14 L (4.60-5.80) X10*6/uL Hgb 13.1 L (14.0-18.0) g/dl Hct 37.8 L (42.0-52.0) % MCV 91.3 (80.0-98.0) fL MCH 31.6 (27.0-33.0) pg MCHC 34.7 (31.0-36.0) g/dl RDW 12.0 (11.0-16.0) % Plt Count 266 (160-400) X10*3/uL MPV 8.9 L (9.4-12.4) fL Immature Gran % (Auto) 0.6 H (0.0-0.4) % Neut % (Auto) 76.3 H (45-73) % Lymph % (Auto) 11.5 L (20-40) % Grimes % (Auto) 10.7 (2-11) % Eos % (Auto) 0.6 (0-4) % Baso % (Auto) 0.3 (0-2) % Lymph # (Auto) 0.9 L (1.2-4.9) X10*3/uL Grimes # (Auto) 0.8 (0.1-1.2) X10*3/uL Eos # (Auto) 0.1 (0.0-0.4) X10*3/uL Baso # (Auto) 0.0 (0.0-0.2) X10*3/uL Abs Immat Gran (auto) 0.05 H (0.00-0.03) X10*3/uL Absolute Neuts (auto) 5.9 (2.0-8.3) x10*3/uL Absolute Nucleated RBC 0.000 (0.0-0.012) X10*3/uL Nucleated RBC % (auto) 0.0 (0.0-0.2) /100WBC Sodium 137 (135-145) mmol/L Potassium 4.4 (3.3-5.1) mmol/L Chloride 106 (96-108) mmol/L Carbon Dioxide 21 L (22-29) mmol/L Anion Gap 14 (12-20) BUN 15 (9-16) mg/dL Creatinine 0.90 (0.5-1.4) mg/dL Estim Creat Clear Calc 80.8 Estimated GFR > 60 POC Glucose 188 H (60-115) mg/dL Random Glucose 200 H (60-115) mg/dL Calcium 9.6 (8.4-10.2) mg/dL Total Bilirubin 0.3 (0.0-1.0) mg/dL AST 19 (5-37) U/L ALT 25 (0-40) U/L Alkaline Phosphatase 72 (39-117) U/L Total Protein 6.6 (6.5-8.0) g/dL Albumin 4.0 (3.5-5.0) g/dL Urine Color Yellow Urine Appearance Clear Urine pH 5.5 (5.0-9.0) Ur Specific [place] 1.015 (1.005-1.025) Urine Protein Trace (Neg-Trace) mg/dL Urine Glucose (UA) 250 H (Negative) mg/dL Urine Ketones 15 (Negative) mg/dL Urine Blood Negative (Negative) Urine Nitrite Negative (Negative) Ur Leukocyte Esterase Trace H (Negative) Urine RBC 0-2 (0-2) /HPF Urine WBC 6-10 H (0-5) /HPF Ur Squamous Epith Cells 0-2 (0-2) /HPF Urine Bacteria None Seen (None Seen) Hyaline Casts 0-2 (0-2) /LPF External Record Review External record reviewed: Outpatient record and Prior outpatient labs Chronic Conditions Patient?s care impacted by: Diabetes Critical Care Time Critical Care Time Critical Care Time: Yes Total Critical Care Time: 30 Attestation: I personally attest to this time spent taking care of the patient. Discharge Plan Discharge Clinical Impression: Left flank pain, Musculoskeletal pain Patient Disposition: Home, Self-Care Instructions: Musculoskeletal Pain (ED), Flank Pain (ED) Additional Instructions: 1. Resume all home medications as prescribed. 2. Follow-up with your primary care doctor in the next 1-2 days. Return to the ER for any worsening symptoms. Prescriptions: No Action fluticasone propion-salmeterol [Advair Diskus] 250-50 mcg/dose blister with device 1 inh inhalation Q12H Qty: 1 0RF albuterol sulfate 90 mcg/actuation HFA aerosol inhaler 1 inh inhalation QID PRN (Reason: shortness of breath or wheezing) Qty: 8.5 0RF Referrals: Sandeep Preston MD [Primary Care Provider] -
== END 2024-01-10 07:05 | disposition home or self-care (01) ==
PROVIDERS: Emergency Provider Student in an Organized Health Care Education/Training Program; PCP Internal Medicine
DX: R10.9 Unspecified abdominal pain (principal); M79.18 Myalgia, other site
CPT/HCPCS: 36415; 80053; 81001; 82947; 85025; 87086; 99283; 99284

== ENCOUNTER 2024-08-07 14:22 | Outpatient (REF) | payer MEDICARE, SELFPAY ==
[2024-08-07 18:20] LABS: Alanine Aminotransferase 25 U/L (0-40); Albumin Level 3.9 g/dL (3.5-5.0); Alkaline Phosphatase 88 U/L (39-117); Anion Gap 17 (12-20); Aspartate Amino Transferase 22 U/L (5-37); Bilirubin Total 0.4 mg/dL (0.0-1.0); Blood Urea Nitrogen 21 mg/dL (9-16); Calcium 8.9 mg/dL (8.4-10.2); Carbon Dioxide 20 mmol/L (22-29); Chloride 103 mmol/L (96-108); Cholesterol 181 mg/dL (<200); Estimated Glomerular Filt Rate > 60; Glucose Random 206 mg/dL (60-115); HDL Cholesterol 85 mg/dL (>40); LDL Cholesterol Calculated 65 mg/dL (<100); Potassium 4.2 mmol/L (3.3-5.1); Sodium 136 mmol/L (135-145); Total Protein 6.9 g/dL (6.5-8.0); Triglycerides 158 mg/dL (<150)
[2024-08-08 04:10] LABS: Estimated Average Glucose 160 mg/dL; Hemoglobin A1c % 7.2 % (<6.0)
== END 2024-08-07 14:23 | disposition home or self-care (01) ==
LOC: HO.MANLDS 14:22
PROVIDERS: Visit Provider Internal Medicine
DX: E11.9 Type 2 diabetes mellitus without complications (principal)
CPT/HCPCS: 36415; 80053; 80061; 83036

== ENCOUNTER 2024-12-10 09:00 | Outpatient (REF) | payer MEDICARE, SELFPAY ==
[2024-12-10 09:48] LABS: Estimated Average Glucose 157 mg/dL; Hemoglobin A1c % 7.1 % (<6.0); Total Hemoglobin (HGBA1C) 3572.5102 umol/L
[2024-12-10 10:10] LABS: Alanine Aminotransferase 53 U/L (0-40); Albumin Level 4.1 g/dL (3.5-5.0); Alkaline Phosphatase 63 U/L (39-117); Anion Gap 10 (12-20); Aspartate Amino Transferase 29 U/L (5-37); Bilirubin Total 0.7 mg/dL (0.0-1.0); Blood Urea Nitrogen 17 mg/dL (9-16); Calcium 8.8 mg/dL (8.4-10.2); Carbon Dioxide 26 mmol/L (22-29); Chloride 107 mmol/L (96-108); Estimated Glomerular Filt Rate > 60; Glucose Random 210 mg/dL (60-115); Potassium 4.4 mmol/L (3.3-5.1); Sodium 139 mmol/L (135-145); Total Protein 6.8 g/dL (6.5-8.0)
--- OUTSIDE RECORDS SUMMARY | 2024-12-10 12:00 | XMS_ITS | Continuity of Care Document ---
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) MDM MODERATE MUST MEET 2 OUT OF 3 ELEMENTS: PROBLEMS, DATA OR RISK ELEMENT 1: PROBLEMS ADDRESSED 1 OR MORE CHRONIC ILLNESS WITH EXACERBATION OR 2 OR MORE STABLE CHRONIC ILLNESSES OR 1 UNDIAGNOSED NEW PROBLEM OR 1 ACUTE ILLNESS W/SYMPTOMS OR 1 ACUTE COMPLICATED INJURY ELEMENT 2: DATA MUST MEET 1 OF 3 CATEGORIES CATEGORY 1: REVIEW OF PRIOR EXTERNAL NOTES, REVIEW OF RESULTS, ORDERING OF EACH TEST, ASSESSMENT REQUIRING INDEPENDENT HISTORIAN OR CATEGORY 2: INDEPENDENT INTERPRETATION OF TESTS BY ANOTHER PHYSICIAN OR SPECIALIST OR CATEGORY 3: DISCUSSION OF MGT OR TEST INTERPRETATION W/EXTERNAL PHYSICIAN OR SPECIALIST ELEMENT 3: RISK RISK OF COMPLICATIONS AND/OR MORBIDITY OR MORTALITY OF PATIENT MANAGEMENT PROVIDER MUST THOROUGHLY DOCUMENT EACH ELEMENT THAT IS COVERED Not available 12/04/2024 10:02:39 Plan of Treatment Reminders Order Date Submit Date Provider Last Modified By Organization Details Last Modified Time Details Appointments FOLLOW UP 15 2024 11:45A M DR DUMONT Not available Not available Not available Lab HbA1c (hemoglo bin A1c), blood 2024 025 [facility], [address] [place] [address], [place], [address], 12/04/2024 10:09:59 CMP, serum or plasma 2024 025 [facility], [address] [place] [address], [address], 12/04/2024 10:09:59 Referral None recorded . Procedures None recorded . Surgeries None recorded . Imaging None recorded . Medication Orders None recorded . Patient TargetsNo targets recorded. Patient Instructions Encounter Date Encounter Id Patient Instructions Last Modified By Organization Details Last Modified Time 12/04/2024 [id number] irritable bowel syndrome: care instructions Not available 12/04/2024 10:05:33 learning about type 1 diabetes Not available 12/04/2024 10:05:33 type 1 diabetes: care instructions Not available 12/04/2024 10:05:33 Reason for Referral None Reported. Problems Name Problem SNOMED Code Status Onset Date Resolution Date Notes Provider Name and Address Organization Details Recorded Time Hyperten sive disorder 44669593 Active 2018 Not Available [facility] 3 12:53:16 Raynaud' s disease 172493518 Active 2018 Not Available [facility] 3 12:53:16 Hypercho lesterol emia 09242034 Active 2018 Not Available [facility] 3 12:53:16 Irritabl e bowel syndrome 68056745 Active 2018 Not Available [facility] 3 12:53:15 Gastroes ophageal reflux disease 089715740 Active 2018 Not Available [facility] 3 12:53:16 Osteoart hritis 531294274 Active 2018 shoulder Not Available [facility] 3 12:53:16 Type 1 diabetes mellitus 09186668 Active 2018 Not Available [facility] 3 12:53:16 Spinal stenosis in cervical region 88686779 Completed 201803/23/2019 Sandeep Dumont, DO [address] [place], [address], [facility] 9 16:22:56 Spinal stenosis of lumbar region 34299661 Active 2018 Not Available [facility] 3 12:53:16 Degenera tion of interver tebral disc 79691769 Active 2018 Not Available [facility] 3 12:53:16 Rhinophy ma 77114173 Active 2018 Not Available [facility] 3 12:53:16 Allergic rhinitis 04956989 Active 2018 Not Available [facility] 3 12:53:16 Mood disorder 84614833 Active 2018 affectiv e disorder Not Available [facility] 3 12:53:16 Alcohol abuse 86444787 Active 2018 Not Available [facility] 3 12:53:16 Tinnitus of right ear 8656693831 108 Active 2018 Not Available [facility] 3 12:53:16 Papillom a 678431604 Active 2021 Not Available [facility] 3 12:53:16 Trochant ann bursitis of left hip 2201087730 72072 Active 2021 Not Available [facility] 3 12:53:16 Cramp in lower limb 707535078 Active 2021 Not Available [facility] 3 12:53:16 COVID-19 376682228 Active 2021Oct 2022 Not Available [facility] 3 12:53:16 Acute bronchit is 00892715 Active 2021 Not Available [facility] 3 12:53:15 Atypical chest pain 970668175 Active 2022 Not Available [facility] 3 12:53:15 Dyspnea 746140236 Active 2022 Not Available 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 3 12:53:16 Diabetic peripher al neuropat hy 931876073 Active 2022 Not Available [facility] 3 12:53:16 Left lower quadrant pain 974183024 Active 2023 Sandeep Dumont, DO [address] [place] [address], [address], [facility] 4 09:33:43 Depressi ve disorder 11873560 Active 2023 Sandeep Dumont DO [address] [place] [address], [address], [facility] 4 09:36:34 Problem Notes None recorded. Medical Equipment None Reported. Allergies Allergen ID Allergen Name Allergen Category Reaction Reaction Severity Criticality Documentation Date Start Date Code Code System Note Provider Name and Address Organization Details Recorded Time 2722 diclofena c Not available Not available Not available Not available 12/02/2018 3355 RxNorm Naya sadler [facility] 9 16:13:45 2725 Non-stero idal anti-infl ammatory agent (product) medicatio n Not available Not available Not available 12/03/2018 50013 005 SNOMED IBS acts up Naya sadler [facility] 9 13:50:35 7934 Substance with morphinan structure and opioid receptor agonist mechanism of action (substanc e) medicatio n itching Not available [facility] 02/12/2024 27818 9000 SNOMED Yasmin Kartik sadler [facility] 4 11:19:26 8695 lisinopri l medicatio n angioedem a Not available [facility] 12/04/2024 25484 RxNorm Sandeep Dumont DO [address] [place], [address], [facility] 5 09:59:04 Medications Name Sig Start Date Stop Date Status Note LastModified by Organization Details LastModified Time losartan 50 mg tablet Take 1 tablet every day by oral route for 30 days. 2024 active Not Available Not Available Not Avai lable amoxicillin 500 mg capsule TAKE 1 CAPSULE BY MOUTH THREE TIMES DAILY 01/16 completed Not Available Not Available Not Available atorvastati n 40 mg tablet TAKE 1 TABLET BY MOUTH ONCE DAILY 05/30 completed Not Available Not Available Not Available bupropion HCl SR 150 mg tablet,12 hr sustained-r elease TAKE 1 TABLET BY MOUTH TWICE DAILY 2023 active Not Available Not Available Not Avai lable fluticasone 250 mcg-salmete rol 50 mcg/dose blistr powdr for inhalation INHALE 1 PUFF BY MOUTH EVERY 12 HOURS active Not Available Not Available No t Available clonidine HCl 0.1 mg tablet TAKE 1 TABLET BY MOUTH EVERY DAY DIRECTED active Not Available Not Available No t Available sildenafil 50 mg tablet TAKE 1 TABLET BY MOUTH ONCE DAILY NEEDED 05/30 completed Not Available Not Available Not Available aspirin 325 mg tablet Take 1 tablet every day by oral route for 30 days. 2022 active Not Available Not Available Not Avai lable ofloxacin 0.3 % eye drops INSTILL 5 DROPS INTO THE RIGHT EAR TWICE DAILY FOR 5 DAYS DIRECTED 05/30 completed Not Available Not Available Not Available citalopram 10 mg tablet TAKE 1 TABLET BY MOUTH EVERY DAY- needs appt for further refills 05/30 completed Not Available Not Available Not Available meloxicam 15 mg tablet TAKE 1 TABLET BY MOUTH EVERY DAY 2023 active Not Available Not Available Not Avai lable lisinopril 20 mg tablet TAKE 1 TABLET BY MOUTH EVERY DAY 08/10 completed Not Available Not Available Not Available Lantus U-100 Insulin 100 unit/mL subcutaneou s solution INJECT 30 UNITS UNDER THE SKIN EVERY EVENING AT BEDTIME(V IAL ONLY OK TO USE 30 DAYS AFTER FIRST USE) 12/03 completed Not Available Not Available Not Available ciprofloxac in 500 mg tablet TAKE 1 TABLET BY MOUTH EVERY 12 HOURS FOR 7 DAYS 12/05 completed Not Available Not Available Not Available tramadol 50 mg tablet 12/03 completed Not Available Not Available Not Available ofloxacin 0.3 % ear drops 01/27 completed Not Available Not Available Not Available clonidine HCl 0.2 mg tablet TAKE 1 TABLET BY MOUTH TWICE DAILY active Not Available Not Available No t Available dicyclomine 20 mg tablet TAKE 2 TABLETS BY MOUTH THREE TIMES DAILY active Not Available Not Available No t Available Humalog U-100 Insulin 100 unit/mL subcutaneou s solution INJECT 5 TO 10 UNITS SUBCUTANE OUSLY 3 TIMES A DAY BEFORE MEALS NEEDED 2022 active Not Available Not Available Not Avai lable meclizine 25 mg tablet Take 1 tablet 3 times a day by oral route as needed for 10 days. 01/27 completed Not Available Not Available Not Available lisinopril 10 mg tablet TAKE 1 TABLET BY MOUTH DAILY 08/10 completed Not Available Not Available Not Available guanfacine 1 mg tablet TAKE 1 TABLET BY MOUTH EVERY DAY active Not Available Not Available No t Available betamethaso ne dipropionat e 0.05 % topical cream APPLY THIN LAYER TOPICALLY TO THE AFFECTED AREA EVERY DAY active Not Available Not Available No t Available lisinopril 5 mg tablet TAKE 2 TABLETS BY MOUTH EVERY DAY- REPLACES LISINOPRI L 10MG TABLETS 01/27 completed Not Available Not Available Not Available triamcinolo ne acetonide 0.1 % lotion APPLY TO AFFECTED AREA(S) TWICE DAILY NEEDED 01/27 completed Not Available Not Available Not Available methylpredn isolone 4 mg tablets in a dose pack 12/03 completed Not Available Not Available Not Available albuterol sulfate HFA 90 mcg/actuati on aerosol inhaler INHALE 1 PUFF BY MOUTH FOUR TIMES A DAY NEEDED FOR SHORTNESS OF BREATH OR WHEEZING 02/11 completed Not Available Not Available Not Available metronidazo le 0.75 % topical gel APPLY A THIN LAYER TO AFFECTED AREA TWICE A DAY 03/20 completed Not Available Not Available Not Available doxycycline hyclate 100 mg tablet 12/03 completed Not Available Not Available Not Available tobramycin 0.3 %-dexametha sone 0.1 % eye drops,suspe nsion SHAKE WELL AND INSTILL 3 DROPS INTO AFFECTED EAR TWICE DAILY FOR 5 DAYS 02/11 completed Not Available Not Available Not Available Novolog FlexPen U-100 Insulin aspart 100 unit/mL (3 mL) subcutaneou s ADMINISTE R 5 UNITS UNDER THE SKIN THREE TIMES DAILY BEFORE MEALS active Not Available Not Available No t Available rosuvastati n 5 mg tablet TAKE 1 TABLET BY MOUTH EVERY DAY active Not Available Not Available No t Available Avastin 25 mg/mL intravenous solution active Not Available Not Available Not Available chlorhexidi ne gluconate 0.12 % mouthwash SWISH AND SPIT 10 ML BY MOUTH THREE TIMES DAILY active Not Available Not Available No t Available omeprazole Take two tablets once a day prn 05/30 completed Not Available Not Available Not Available Ranitidine Take one tablet at night prn 03/02 completed Not Available Not Available Not Available Lantus Solostar U-100 Insulin 100 unit/mL (3 mL) subcutaneou s pen 05/30 completed Not Available Not Available Not Available Humalog KwikPen (U-100) Insulin 100 unit/mL subcutaneou s 05/30 completed Not Available Not Available Not Available BD Insulin Syringe Ultra-Fine 0.5 mL 31 gauge x 5/16 USE 4 TIMES DAILY 01/27 completed Not Available Not Available Not Available True Metrix Glucose Test Strip USE TO CHECK BLOOD SUGAR FOUR TIMES DAILY active Not Available Not Available No t Available Gardasil 9 (PF) 0.5 mL intramuscul ar syringe BRING TO PROVIDSER S OFFICE FOR ADMINISTR ATION 01/27 completed Not Available Not Available Not Available Flonase Allergy Relief Two sprays in each nostril once a day prn active Not Available Not Available No t Available Toujeo Max U-300 SoloStar 300 unit/mL (3 mL) subcholy cross hospital[facility] s insulin pen ADMINISTE R 30 UNITS UNDER THE SKIN EVERY DAY active Not Available Not Available No t Available BD Joselyn 2nd Gen Pen Needle 32 gauge x 5/32 USE 3-4 TIMES EVERY DAY DIRECTED active Not Available Not Available No t Available BinaxNOW COVID-19 Ag Self Test kit TEST DIRECTED TODAY 12/18 completed Not Available Not Available Not Available Paxlovid 300 mg (150 mg x 2)-100 mg tablets in a dose pack Take 1 dose pk by oral route as directed for 5 days. 12/05 completed Not Available Not Available Not Available naltrexone 4.5 mg capsule Take 1 capsule every day by oral route for 30 days. 2023 active Not Available Not Available Not Avai lable naltrexone 1.5 mg capsule Take 1 capsule every day by oral route for 30 days. 08/10 completed Not Available Not Available Not Available Vitals Date Recorded Body height Body mass index (BMI) Body weight Heart rate Oxygen saturation Oxygen saturation in Arterial blood by Pulse oximetry Systolic blood pressure Diastolic blood pressure Provider Name and Address Organization Details Last Updated DateTime 5 177.8 cm 27.8 kg/m2 56825.9 2 g 79 /min 98 % 98 % 170 mm[Hg] 80 mm[Hg] Yasmin Kartik [facility] 5 09:44:50 Social History Question Answer Notes LastModified by Organizat ion Details LastModified Time Tobacco Sm[facility] Status [facility] 09:51[facility]02 What Was The Date Of Your Most Recent Tobacco Screening? 08/10/2024 [email or web address] Information not available 08/10/2024 Do You Or Have You Ever Used Any Other Forms Of Tobacco Or Nicotine? No [email or web address] Information not available 10/25/2023 Sex: Unknown Functional Status None recorded. Mental Status None recorded. Family History Nothing Reported. Medical History No medical history recorded. Immunizations Vaccine Type Date Status Note Provider Nam e and Address Organization Details Recorded Time COVID-19, mRNA, LNP-S, PF, 100 mcg/0.5mL dose or 50 mcg/0.25mL dose 02/03/20 21 completed Janie sadler [facility] 05/29/2021 16:46:13 Pneumococcal conjugate PCV 13 11/06/20 16 completed Janie sadler [facility] 05/29/2021 16:46:45 COVID-19, mRNA, LNP-S, PF, 100 mcg/0.5mL dose or 50 mcg/0.25mL dose 10/24/20 21 completed Janie Reyes [facility] 10/25/2021 13:53:02 Influenza, split virus, quadrivalent, preservative 08/15/20 18 completed Sandeep Dumont, [address] [place], [address], [place] [facility] 08/16/2018 15:23:56 zoster recombinant 03/06/20 22 [facility]22 13:50:21 influenza, intradermal, quadrivalent, preservative free 07/26/20 22 [facility] 07[facility]2022 09:52:42 zoster live 07/26/20 22 [facility] 07/27/2022 09:53:06 COVID-19, mRNA, LNP-S, PF, 50 mcg/0.5 mL dose 05/23/20 22 [facility]18[facility]2022 08:13:18 COVID-19, mRNA, LNP-S, PF, 50 mcg/0.5 mL dose 08/07/20 22 [facility] 12/18[facility]2022 08:13:25 COVID-19 Non-US Vaccine, Product Unknown 09/04/20 23 [facility]04[facility]23 14:09:04 influenza, unspecified formulation 09/04/20 23 [facility]23 14:09:28 influenza, unspecified formulation 10/16/20 24 [facility] 10/19/2024 08:03:11 SARS-COV-2 (COVID-19) vaccine, UNSPECIFIED 10/16/20 24 [facility]24 08:03:20 pneumococcal polysaccharide PPV23 08/24/20 15 completed Naya sadler [facility] 12/02/2018 16:29:19 zoster live 05/25/20 14 [facility] 12/02[facility]2018 16:29:53 Td (adult) 06/11/20 14 [facility] 12/02[facility]2018 16:30:23 Influenza, split virus, quadrivalent, preservative 10/09/20 19 completed Sandeep Dumont DO [address], [place], [address], [facility] 10/11/2019 09:53:38 COVID-19, mRNA, LNP-S, PF, 100 mcg/0.5mL dose or 50 mcg/0.25mL dose 01/05/20 21 [facility] 01/27/2021 15:28:42 Past Encounters Encounter ID Performer Location Encounter Start Date Encounter Closed Date Diagnosis/Indication Diagnosis SNOMED-CT Code Diagnosis ICD10 Code Diagnosis Note [id number] Sandeep Dumont DO [facility] [address],[place] [address] 12/04/2024 09:32:43 12/04/2024 10:13:34 Hypertensive disorder 15322445 I10 bp is elevated and not controlled Type 1 krystal betes mellitus 87483732 E10.8 a1c is pending sugars checked at home are elevated was at 7.2 was 6.8 in nov 2023 and prior 6.4 in jul didn get latest 7.2 was at7.4 was down to 6.7 relates is using insulin daily lantus at 20 and had been doing okbut he relates that he is changing his own dose of lantus and he is doing this without telling uslots of excuses re still using etoh also uses 5-10u of novolog with mealsrecc he get a diabetic foot exam he did get an diabetic eye exam as well and was good (he has not) Irritable bowel syndrome 69414764 K58.9 using the dicyclomin e with good results 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 8756596769 U09.9 he is still struggling with the mentation and cognitive issuewe will see if he is a candidate for a stellate ganglion according to the study in the brain behavioral immun health augut brain fog has cleared taking clonidine guaefensin e andnaltrex one 1mg daily Health Concerns Section Related Observation LastModified by Organization Detai ls LastModified Time None Recorded Concern Status LastModified by Organization Details LastModified Time None Recorded Payers Encounter Date Sequence Insurance Name Policy Number Policy Mcwilliams Covered Member ID Mcwilliams Member ID Guarantor Name 12/04/2024 1 [place] [employer] Zaid Becker [id number] Zaid Becker 12/04/2024 2 [place] [id number] Zaid Becker [id number] Zaid Becker Notes Date Note Type Note Provider Name a nd Address Organization Details Recorded Time 5 text/html Care Management - DiabetesReported bypatient.Prognosis:e xpected outcome: improve; prognosis: good Self Care:seeing eye doctor yearly for dilated eye exam; checking feet regularly; normal range of home blood sugars (in the low 100s); no side effects from medications; hemoglobin A1C goal: ; hemoglobin A1C levels have been: 7-8;side effects from medications: angioedema Associated Symptoms:symptoms are usually well controlled; no fatigue; no dizziness; no excessive sweating; no headaches; no confusion; no increased thirst; no increased appetite; no increased urination; no blurred vision; no numbness of feet; no calluses on feet here for rechk of his dm and bprelates bp iss elevated dm is up Sandeep Dumont, DO [address], [place], [address], [facility] 12/04/2024 10:10:05
--- OUTSIDE RECORDS SUMMARY | 2024-12-10 12:01 | XMS_ITS | Continuity of Care Document ---
Author Organization [place] - [facility], [facility] Address [address] [place] [address] Care Team Providers Care Thread Grinder Tool Name Role Phone DEVORAH DUMONT Primary Care Provider [phone] Assessment Encounter Date Assessment Date Assessment LastModified by Organization Details LastModified Time 11/26/2024 11/26/2024 Recurrent papilloma nasal surface soft palate Feels ears are stable. Still having issues with HTN peripheral neuropathy Residual papilloma noted along nasal surface soft palate. Suggest additional procedure in the spring [email or web address] Not available 11/26/2024 11:15:08 Plan of Treatment Reminders Order Date Submit Date Provider Last Modified By Organization Details Last Modified Time Details Appointments None recorded. Lab None recorded. Referral None recorded. Procedures None recorded. Surgeries endoscopy, nasal/sinus , surgical, with biopsy, polypectomy or debridement (SURG) 2024 025 [email or web address] Not available 5 11:58:21 excision, lesion of palate, uvula (SURG) 2024 025 9 Not available 5 11:58:36 Imaging None recorded. Medication Orders None recorded. Patient TargetsNo targets recorded. Patient InstructionsNo instructions recorded. Reason for Referral None Reported. Results Created Date Observation Date Name Description Value Unit Range Abnormal Flag Note LastModifiedBy Organization Detail LastModifiedTime 11/18/1910/22/2024 clini jackie photo * No observ ation record ed. [email or web address] Not Available 06/2025 13:03:36 Result Notes None recorded. 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; Note: Changed from D37.09 to D37.05 (04/26/20 8:25 AM) , Date Diagnose d: 04/18/2020 9:09 AM (D37.09) Not Available [facility] 4 02:58:33 General unsteadi ness 182122726 Active 2021 Unsteadi ness on feet; Note: Date Diagnose d: 2 12:39 PM (R26.81) Not Available [facility] 4 02:58:33 Bilatera l tinnitus 66323142311 02 Active 2021 Tinnitus , bilatera l; Note: Date Diagnose d: 2 11:44 AM (H93.13) Not Available [facility] 4 02:58:31 History of SARS-CoV -2 18974891151 4992410 Active 2022 Personal history of COVID-19 ; Note: Date Diagnose d: 3 11:53 AM (Z86.16) Not Available [facility] 4 02:58:33 Deviated nasal septum 431517954 Active 2019 Deviated nasal septum; Note: Date Diagnose d: 0 2:00 PM (J34.2) Not Available [facility] 4 02:58:31 Human papillom a virus infectio n 538185316 Active 2019 Papillom avirus as the cause of diseases classifi ed elsewher e; Note: Date Diagnose d: 0 9:00 AM (B97.7) Not Available [facility] 4 02:58:32 Otorrhea of right ear 72330532973 85426 Completed 202006/12/2024 Otorrhea , right ear; Note: Date Diagnose d: 10/30/20 21 12:06 PM (H92.11) Not Available [facility] 4 02:58:31 Sensorin eural hearing loss in left ear 80636768005 109 Active 2019 Sensorin eural hearing loss, unilater al, left ear, with restrict ed hearing on the contrala teral side; Note: Date Diagnose d: 0 2:48 PM (H90.A22 ) Not Available [facility] 4 02:58:34 Polyneur opathy 68798847 Active 2021 Neuropat hy NOS; Note: Date Diagnose d: 2 12:39 PM (G62.9) Not Available [facility] 4 02:58:30 Abnormal auditory percepti on 85282157 Active 2019 Other abnormal auditory percepti ons, right ear; Note: Date Diagnose d: 0 1:28 PM (H93.291 ) Not Available [facility] 4 02:58:32 Benign neoplasm of orophary nx 12563164 Active 2019 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; Note: Date Diagnose d: 0 1:47 PM (D10.5) Not Available [facility] 4 02:58:33 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 451067914 Active 2021 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; Note: Changed from E10.69 to E10.42 (05/03/20 23 11:53 AM) , Date Diagnose d: 2 12:10 PM (E10.69) Not Available [facility] 4 02:58:32 Ataxic gait 54865160 Active 2019 Ataxic gait; Note: Date Diagnose d: 0 1:47 PM (R26.0) Not Available [facility] 4 02:58:30 Allergic rhinitis 30148057 Active 2020 Allergic rhinitis : Due to other allergen ; Note: Date Diagnose d: 02/17/2021 11:41 AM (477.8) Allerg ic rhinitis : Due to other allergen ; Note: Date Diagnose d: 10/21/20 11:42 AM (477.8) ; Start Date : 10/21/20 Aller gic rhinitis : Due to other allergen ; Note: Date Diagnose d: 09/06/20 10:59 AM (477.8) ; Start Date : 09/06/20 Not Available [facility] 4 02:58:31 Obstruct amie sleep apnea syndrome 65289848 Active 2022 Obstruct amie sleep apnea (adult) (pediatr ic); Note: Date Diagnose d: 3 11:53 AM (G47.33) Not Available [facility] 4 02:58:32 Dizzines s and giddines s 704535904 Active 2019 Dizzines s and giddines s; Note: Date Diagnose d: 10/21/20 10:48 AM (R42) Not Available [facility] 4 02:58:34 Mixed conducti ve and sensorin eural hearing loss of right ear 78182171855 105 Active 2019 Mixed conducti ve and sensorin eural hearing loss, unilater al, right ear with restrict ed hearing on the contrala teral side; Note: Date Diagnose d: 0 2:48 PM (H90.A31 ) Not Available [facility] 4 02:58:30 Disorder of right Eustachi an tube 70994286059 97522 Active 2019 Other specifie d disorder s of Eustachi an tube, right ear; Note: Date Diagnose d: 0 1:47 PM (H69.81) Not Available [facility] 4 02:58:32 Bilatera l disorder of Eustachi an tubes 34088717270 71879 Active 2023 ZHAO GARIBAY MD [address] [place] [address], [facility] [place], [address] , [facility] - [facility] 4 11:31:54 Benign neoplasm of nose, middle ear and accessor y sinuses 226986888 Active 2023 ZHAO GARIBAY MD [address] [facility],[place] [address], [place], [address] , [facility] - [facility] 4 11:31:59 Sensorin eural hearing loss of bilatera l ears 620181630 Active 2023 ZHAO GARIBAY MD [address] [facility],[place] [address], Heathjose de jesus zurita, [place], [address] , [facility] - [facility] [place] 4 12:19:53 Recurren t respirat ory papillom atosis 331458291 Active 2024 ZHAO GARIBAY MD [address] [facility],[place] [address], [place], [address] , [facility] [place] 5 11:13:30 Problem Notes None recorded. Procedures Surgical History Date Name Laterality Status Provider Name and Address Organization Details Recorded Time 11/26/19 25 Fiberoptic Laryngoscopy (Comprehensive) completed ZHAO SOTO MD [address] [facility],[address], [address], [facility] 11/26/2024 11:12:58 10/22/20 24 EXCISION OR DESTRUCTION OF LESION OF PHARYNX (SURG) completed John Hollingsworth [place] - [facility] 10/23/2024 17:03:10 09/07/20 24 Comp Audio (07066) completed SABRINA TIAN [address] [facility],[address], [address], [facility] 09/07/2024 12:02:40 09/07/20 24 Fiberoptic Laryngoscopy (Comprehensive) completed ZHAO SOTO MD [address] [facility],[address], [address], [facility] 09/07/2024 12:22:41 myringotomy and insertion of tympanic ventilation tube completed ZHAO SOTO MD [address] [facility],[address], [address], [facility] - [facility] 09/06/2024 09:52:10 Imaging Results None recorded. Procedure Notes None recorded. Medical Equipment None Reported. Allergies Allergen ID Allergen Name Allergen Category Reaction Reaction Severity Criticality Documentation Date Start Date Code Code System Note Provider Name and Address Organization Details Recorded Time 488530 Non-stero idal anti-infl ammatory agent (product) medicatio n other Not available Not available 03/24/2024 31863 005 SNOMED React ion: unkno wn, unspe cifie d;; Not Available [facility] 4 01:23:16 825442 Substance with morphinan structure and opioid receptor agonist mechanism of action (substanc e) medicatio n other Not available Not available 03/24/2024 46590 9000 SNOMED React ion: unkno wn, unspe cifie d;; Not Available [facility] 4 01:23:17 Medications Name Sig Start Date Stop Date Status Note LastModified by Organization Details LastModified Time Augmentin 875 mg-125 mg tablet by mouth 04/19 completed Medicati on ID: [id number] D uration Value: 10 Prescri bed By Name: Cha Mcfarland nd Name: Augmenti n Send Method: E-Prescr ibed Sub s Allowed: subs OK Speci al Instruct ion: 1 po bid for 10 days Med icationG enericNa me: Augmenti n Not Available Not Available Not Available bupropion HCl SR 150 mg tablet,12 hr sustained -release TAKE 1 TABLET BY MOUTH TWICE DAILY active Not Available Not Available No t Available clonidine HCl 0.1 mg tablet TAKE 1 TABLET BY MOUTH EVERY DAY DIRECTED active Not Available Not Available No t Available ofloxacin 0.3 % eye drops 5 drop 09/07 completed Medicati on ID: [id number] D uration Value: 5 Prescri bed By Name: Cha Mcfarland nd Name: ofloxaci n Send Method: E-Prescr ibed Sub s Allowed: subs OK Speci al Instruct ion: 5 drops into RIGHT ear twice daily for 5 days Med icationG enericNa me: ofloxaci n Not Available Not Available Not Available citalopra m 10 mg tablet 10/21 completed Medicati on ID: [id number] D uration Value: 30 Brand Name: citalopr am Send Method: E-Prescr ibed Sub s Allowed: subs OK Medic ationGen ericName : citalopr am Not Available Not Available Not Available meloxicam 15 mg tablet TAKE 1 TABLET BY MOUTH EVERY DAY active Not Available Not Available No t Available lisinopri l 20 mg tablet TAKE 1 TABLET BY MOUTH EVERY DAY active Not Available Not Available No t Available Lantus U-100 Insulin 100 unit/mL subcutane ous solution 09/07 completed Not Available Not Available Not Available Ciloxan 0.3 % eye drops 05/04 completed Medicati on ID: [id number] D uration Value: 5 Prescri bed By Name: Cha Mcfarland nd Name: Ciloxan Send Method: E-Prescr ibed Sub s Allowed: subs OK Speci al Instruct ion: Instill 4 drops twice a day into the affected ear Medi cationGe nericNam e: Ciloxan Not Available Not Available Not Available ofloxacin 0.3 % ear drops 4 drop into both ears 2019 active Medicati on ID: [id number] D uration Value: 3 Prescri bed By Name: Cha Mcfarland nd Name: ofloxaci n Send Method: E-Prescr ibed Sub s Allowed: subs OK Medic ationGen ericName : ofloxaci n Not Available Not Available Not Available clonidine HCl 0.2 mg tablet TAKE 1 TABLET BY MOUTH TWICE DAILY active Not Available Not Available No t Available dicyclomi ne 20 mg tablet TAKE 2 TABLETS BY MOUTH THREE TIMES DAILY 09/07 completed Not Available Not Available Not Available Humalog U-100 Insulin 100 unit/mL subcutane ous solution 2019 active Medicati on ID: [id number] D uration Value: 28 Brand Name: Humalog U-100 Insulin Send Method: E-Prescr ibed Sub s Allowed: subs OK Medic ationGen ericName : Humalog U-100 Insulin Not Available Not Available Not Available meclizine 25 mg tablet 09/06 completed Medicati on ID: [id number] D uration Value: 10 Brand Name: meclizin e Send Method: E-Prescr ibed Sub s Allowed: subs OK Speci al Instruct ion: TAKE 1 TABLET BY MOUTH THREE TIMES A DAY IF NEEDED FOR 10 DAYS Med [facility]: meclizin e Not Available Not Available Not Available Cipro 500 mg tablet 1 tablet by mouth 05/29 completed Medicati on ID: [id number] D uration Value: 10 Prescri bed By Name: Zhao briones M.D. Bra nd Name: Cipro Se nd Method: E-Prescr ibed Sub s Allowed: subs OK Medic ationGen ericName : Cipro Not Available Not Available Not Available lisinopri l 10 mg tablet TAKE 1 TABLET BY MOUTH DAILY 09/07 completed Not Available Not Available Not Available guanfacin e 1 mg tablet TAKE 1 TABLET BY MOUTH EVERY DAY active Not Available Not Available No t Available betametha sone dipropion ate 0.05 % topical cream APPLY THIN LAYER TOPICALL Y TO THE AFFECTED AREA EVERY DAY active Not Available Not Available No t Available tobramyci n 0.3 %-dexamet hasone 0.1 % eye drops,venkat pension SHAKE WELL AND INSTILL 3 DROPS INTO AFFECTED EAR TWICE DAILY FOR 5 DAYS 09/07 completed Not Available Not Available Not Available Novolog FlexPen U-100 Insulin aspart 100 unit/mL (3 mL) subcutane ous ADMINIST ER 5 UNITS UNDER THE SKIN THREE TIMES DAILY BEFORE MEALS active Not Available Not Available No t Available rosuvasta tin 5 mg tablet TAKE 1 TABLET BY MOUTH EVERY DAY active Not Available Not Available No t Available True Metrix Glucose Test Strip USE TO TEST BLOOD SUGAR FOUR TIMES DAILY active Not Available Not Available No t Available Gardasil 9 (PF) 0.5 mL intramusc ular syringe Inject 1 syringe intramus cularly single dose 10/30 completed Medicati on ID: [id number] D uration Value: 1 Brand Name: Gardasil 9 (PF) Sen d Method: E-Prescr ibed Sub s Allowed: subs OK Speci al Instruct ion: bring to [facility] nericNam e: Gardasil 9 (PF) Not Available Not Available Not Available Gardasil 9 (PF) 0.5 mL intramusc ular suspensio n Inject 1 ml intramus cularly as directed 11/03 completed Medicati on ID: [id number] D uration Value: 1 Brand Name: Gardasil 9 (PF) Sen d Method: E-Prescr ibed Sub s Allowed: subs OK Speci al Instruct ion: bring to office, to be injected by RN here. Me dication GenericN darya: Gardasil 9 (PF) Not Available Not Available Not Available Toujeo Max U-300 SoloStar 300 unit/mL (3 mL) subcutane ous insulin pen ADMINIST ER 30 UNITS UNDER THE SKIN EVERY DAY active Not Available Not Available No t Available BD Joselyn 2nd Gen Pen Needle 32 gauge x 5/32 USE 3-4 TIMES EVERY DAY DIRECTED active Not Available Not Available No t Available Vitals None Recorded Social History None recorded. Functional Status None recorded. Mental Status None recorded. Family History Nothing Reported. Medical History Condition Response Nasal or Sinus Problems Y Hearing Loss Y Past Encounters Encounter ID Performer Location Encounter Start Date Encounter Closed Date Diagnosis/Indication Diagnosis SNOMED-CT Code Diagnosis ICD10 Code Diagnosis Note [id number] SABRINA TIAN [place] [address] [facility] [address] [place] [address] 10/27/2024 13:00:35 10/27/2024 16:26:49 Sensorineural hearing loss of bilateral ears 748662407 H90.3 [id number] ZHAO GARIBAY MD [facility] [address] [place] [address] 11/26/2024 10:51:24 11/26/2024 11:19:15 Recurrent respiratory papillomatosis 935025412 D14.4 Deviated nasal septum 12 5371610 J34.2 Health Concerns Section Related Observation LastModified by Organization Detai ls LastModified Time None Recorded Concern Status LastModified by Organization Details LastModified Time None Recorded Payers Encounter Date Sequence Insurance Name Policy Number Policy Mcwilliams Covered Member ID Mcwilliams Member ID Guarantor Name 11/26/2024 1 [place] [employer] Data [employer] Zaid Becker [id number] Zaid Becker 11/26/2024 2 [place] [id number] Zaid Becker [id number] Zaid Becker Notes Date Note Type Note Provider Name and Address Organization Details Recorded Time 11/26/2024 text/html Recurrent papill helena nasal surface soft palateFeels ears are stable.Still having issues with HTNperipheral neuropathy ZHAO SOTO MD [address] [place] [address], [phone], [facility] - [facility] 11/26/2024 11:16:15
--- OUTSIDE RECORDS SUMMARY | 2024-12-10 12:01 | XMS_ITS | Data Portability ---
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 He has had gait difficulties related to neuropathy and long COVID. He has a sensation of something sticking in his throat but mostly with eating. Audiogram reviewed. Suggest proceeding with nasal endoscopy and transoral and transnasal removal of the papilloma [email or web address] Not available 09/07/2024 11:33:50 11/26/2024 11/26/2024 Recurrent papilloma nasal surface soft palate Feels ears are stable. Still having issues with HTN peripheral neuropathy Residual papilloma noted along nasal surface soft palate. Suggest additional procedure in the spring [email or web address] Not available 11/26/2024 11:15:08 Plan of Treatment Reminders Order Date Submit Date Provider Last Modified By Organization Details Last Modified Time Details Appointments None recorded. Lab None recorded. Referral None recorded. Procedures None recorded. Surgeries endoscopy, nasal/sinus , surgical, with biopsy, polypectomy or debridement (SURG) 2023 024 9 Not available 13:33:02 excision or destruction , intranasal lesion; internal approach (SURG) 2023 024 [email or web address] 9 Not available 13:33:12 excision or destruction of lesion of pharynx (SURG) 2023 024 9 Not available 4 13:33:23 endoscopy, nasal/sinus , surgical, with biopsy, polypectomy or debridement (SURG) 2024 025 [email or web address] 9 Not available 5 11:58:21 excision, lesion of palate, uvula (SURG) 2024 025 [email or web address] 9 Not available 5 11:58:36 Imaging None recorded. Medication Orders None recorded. Patient TargetsNo targets recorded. Patient InstructionsNo instructions recorded. Reason for Referral None Reported. Results Created Date Observation Date Name Description Value Unit Range Abnormal Flag Note LastModifiedBy Organization Detail LastModifiedTime 09/07/20 24 audio gram No observ ation record ed. [email or web address] Not Available 08/12 15:13:34 11/18/19 25 10/22/2024 clini jackie photo * No observ ation record ed. [email or web address] Not Available 06/2025 13:03:36 Result Notes None recorded. 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; Note: Changed from D37.09 to D37.05 (04/26/20 20 8:25 AM) , Date Diagnose d: 04/18/2020 9:09 AM (D37.09) Not Available [facility] 4 02:58:33 General unsteadi ness 333632413 Active 2021 Unsteadi ness on feet; Note: Date Diagnose d: 2 12:39 PM (R26.81) Not Available [facility] 4 02:58:33 Bilatera l tinnitus 28778119955 02 Active 2021 Tinnitus , bilatera l; Note: Date Diagnose d: 2 11:44 AM (H93.13) Not Available [facility] 4 02:58:31 History of SARS-CoV -2 36997894135 1084618 Active 2022 Personal history of COVID-19 ; Note: Date Diagnose d: 3 11:53 AM (Z86.16) Not Available [facility] 4 02:58:33 Deviated nasal septum 575950788 Active 2019 Deviated nasal septum; Note: Date Diagnose d: 0 2:00 PM (J34.2) Not Available [facility] 4 02:58:31 Human papillom a virus infectio n 693065034 Active 2019 Papillom avirus as the cause of diseases classifi ed elsewher e; Note: Date Diagnose d: 0 9:00 AM (B97.7) Not Available [facility] 4 02:58:32 Otorrhea of right ear 72187690953 59416 Completed 202006/12/2024 Otorrhea , right ear; Note: Date Diagnose d: 10/30/20 21 12:06 PM (H92.11) Not Available [facility] 4 02:58:31 Sensorin eural hearing loss in left ear 25827435531 109 Active 2019 Sensorin eural hearing loss, unilater al, left ear, with restrict ed hearing on the contrala teral side; Note: Date Diagnose d: 0 2:48 PM (H90.A22 ) Not Available [facility] 4 02:58:34 Polyneur opathy 42780968 Active 2021 Neuropat hy NOS; Note: Date Diagnose d: 2 12:39 PM (G62.9) Not Available [facility] 4 02:58:30 Abnormal auditory percepti on 45886863 Active 2019 Other abnormal auditory percepti ons, right ear; Note: Date Diagnose d: 0 1:28 PM (H93.291 ) Not Available [facility] 4 02:58:32 Benign neoplasm of orophary nx 49303546 Active 2019 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; Note: Date Diagnose d: 0 1:47 PM (D10.5) Not Available [facility] 4 02:58:33 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 781210605 Active 2021 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; Note: Changed from E10.69 to E10.42 (05/03/20 11:53 AM) , Date Diagnose d: 2 12:10 PM (E10.69) Not Available [facility] 4 02:58:32 Ataxic gait 10965626 Active 2019 Ataxic gait; Note: Date Diagnose d: 0 1:47 PM (R26.0) Not Available [facility] 4 02:58:30 Allergic rhinitis 04141769 Active 2020 Allergic rhinitis : Due to [...] ; Start Date : 09/06/20 Not Available [facility] 4 02:58:31 Obstruct amie sleep apnea syndrome 83432617 Active 2022 Obstruct amie sleep apnea (adult) (pediatr ic); Note: Date Diagnose d: 3 11:53 AM (G47.33) Not Available [facility] 4 02:58:32 Dizzines s and giddines s 538623014 Active 2019 Dizzines s and giddines s; Note: Date Diagnose d: 10/21/20 10:48 AM (R42) Not Available [facility] 4 02:58:34 Mixed conducti ve and sensorin eural hearing loss of right ear 27441978368 105 Active 2019 Mixed conducti ve and sensorin eural hearing loss, unilater al, right ear with restrict ed hearing on the contrala teral side; Note: Date Diagnose d: 0 2:48 PM (H90.A31 ) Not Available [facility] 4 02:58:30 Disorder of right Eustachi an tube 26633929731 38855 Active 2019 Other specifie d disorder s of Eustachi an tube, right ear; Note: Date Diagnose d: 0 1:47 PM (H69.81) Not Available [facility] 4 02:58:32 Bilatera l disorder of Eustachi an tubes 40296309126 71137 Active 2023 BOB GARIBAY MD [address] [place] [address],[place] [address], [place], [address] , [facility] - [facility] 4 11:31:54 Benign neoplasm of nose, middle ear and accessor y sinuses 231988698 Active 2023 BOB GARIBAY MD [address] [place] [address],[place] [address], [place], [address] , [facility] - [facility] 4 11:31:59 Sensorin eural hearing loss of bilatera l ears 025262386 Active 2023 BOB GARIBAY MD [address] [place] [address],[place] [address], [place], [address] , [place] - [facility] 4 12:19:53 Recurren t respirat ory papillom atosis 373450891 Active 2024 BOB GARIBAY MD [address] [place] [address],[place] [address], [place], [address] , [place] - [facility] 5 11:13:30 Problem Notes None recorded. Procedures Surgical History Date Name Laterality Status Provider Name and Address Organization Details Recorded Time 11/26/19 25 Fiberoptic Laryngoscopy (Comprehensive) completed BOB SOTO MD [facility] [place], [address], [facility] 11/26/2024 11:12:58 10/22/20 24 EXCISION OR DESTRUCTION OF LESION OF PHARYNX (SURG) completed John Hollingsworth [facility] 10/23/2024 17:03:10 09/07/20 24 Comp Audio (01381) completed SABRINA TIAN [address], [place], [address], [facility] 09/07/2024 12:02:40 09/07/20 24 Fiberoptic Laryngoscopy (Comprehensive) completed BOB SOTO MD [address] [facility] [place],[address], [address], [facility] 09/07/2024 12:22:41 myringotomy and insertion of tympanic ventilation tube completed BOB SOTO MD 100 [facility],[place] [address], [place], [address], [facility] 09/06/2024 09:52:10 Imaging Results Imaging Date Name Status LastModified by Organiz ation Details LastModified Time 09/07/2024 audiogram completed [email or web address] Information n ot available 09/07/2024 15:13:34 10/22/2024 clinical photo* completed [email or web address] Information not available 11/18/2024 13:03:36 Procedure Notes None recorded. Medical Equipment None Reported. Allergies Allergen ID Allergen Name Allergen Category Reaction Reaction Severity Criticality Documentation Date Start Date Code Code System Note Provider Name and Address Organization Details Recorded Time 271603 Non-stero idal anti-infl ammatory agent (product) medicatio n other Not available Not available 03/24/2024 80438 005 SNOMED React ion: unkno wn, unspe cifie d;; Not Available [facility] 01:23:16 185074 Substance with morphinan structure and opioid receptor agonist mechanism of action (substanc e) medicatio n other Not available Not available 03/24/2024 06789 9000 SNOMED React ion: unkno wn, unspe cifie d;; Not Available [facility] 4 01:23:17 Medications Name Sig Start Date Stop Date Status Note LastModified by Organization Details LastModified Time Augmentin 875 mg-125 mg tablet by mouth 04/19 completed Medicati on ID: [id number] D uration Value: 10 Prescri bed By [...] 5 drop 09/07 completed Medicati on ID: [id number] D uration Value: 5 Prescri bed By Name: Cha Mcfarland nd Name: ofloxaci n Send Method: E-Prescr ibed Sub s Allowed: subs OK Speci al Instruct ion: 5 drops into RIGHT ear twice daily for 5 days Med icationG enericNa me: ofloxaci n Not Available Not Available Not Available citalopra m 10 mg tablet 10/21 completed Medicati on ID: [id number] D uration Value: 30 Brand Name: citalopr [...] eye drops 05/04 completed Medicati on ID: [id number] D uration Value: 5 Prescri bed By Name: Cha Mcfarland nd Name: Ciloxan Send Method: E-Prescr ibed Sub s Allowed: subs OK Speci al Instruct ion: Instill 4 drops twice a day into the affected ear Medi cationGe nericNam e: Ciloxan Not Available Not Available Not Available ofloxacin 0.3 % ear drops 4 drop into both ears 2019 active Medicati on ID: [id number] D uration Value: 3 Prescri bed By [...] ous solution 2019 active Medicati on ID: [id number] D uration Value: 28 Brand Name: Humalog U-100 Insulin Send Method: E-Prescr ibed Sub s Allowed: subs OK Medic ationGen ericName : Humalog U-100 Insulin Not Available Not Available Not Available meclizine 25 mg tablet 09/06 completed Medicati on ID: [id number] D uration Value: 10 Brand Name: meclizin e Send Method: E-Prescr ibed Sub s Allowed: subs OK Speci al Instruct ion: TAKE 1 TABLET BY MOUTH THREE TIMES A DAY IF NEEDED FOR 10 DAYS Med icationG enericNa me: meclizin e Not Available Not Available Not Available Cipro 500 mg tablet 1 tablet by mouth 05/29 completed Medicati on ID: [id number] D uration Value: 10 Prescri bed By Name: Cha Mcfarland nd Name: Cipro Se nd Method: E-Prescr [...] single dose 10/30 completed Medicati on ID: [id number] D uration Value: 1 Brand Name: Gardasil 9 (PF) Sen d Method: E-Prescr ibed Sub s Allowed: subs JAY Hastings al Instruct ion: bring to appointm [facility] nericNam e: Gardasil 9 (PF) Not Available Not Available Not Available Gardasil 9 (PF) 0.5 mL intramusc ular suspensio n Inject 1 ml intramus cularly as directed 11/03 completed Medicati on ID: [id number] D uration Value: 1 Brand Name: Gardasil 9 (PF) Sen d Method: E-Prescr ibed Sub s Allowed: subs JAY Hastings al Instruct ion: bring to office, to be injected by RN here. Me dication GenericN darya: Gardasil 9 (PF) Not Available Not Available Not Available Toujeo Max U-300 SoloStar 300 unit/mL (3 mL) subcutane ous insulin pen ADMINIST ER 30 UNITS UNDER THE SKIN EVERY DAY active Not Available Not Available No t Available BD Joselyn 2nd Gen Pen Needle 32 gauge x /32 USE 3-4 TIMES EVERY DAY DIRECTED active Not Available Not Available No t Available Vitals Date Recorded Body height Body mass index (BMI) Body weight Provider Name and Address Organization Details Last Updated DateTime 09/07/2024 177.8 cm 28 kg/m2 31522.51 g Ana Faustin [facility] 09/07/2024 11:12:59 Social History None recorded. Functional Status None recorded. Mental Status None recorded. Family History Nothing Reported. Medical History Condition Response Nasal or Sinus Problems Y Hearing Loss Y Past Encounters Encounter ID Performer Location Encounter Start Date Encounter Closed Date Diagnosis/Indication Diagnosis SNOMED-CT Code Diagnosis ICD10 Code Diagnosis Note [id number] BOB GARIBAY MD [facility] [address] [address] 09/07/2024 11:04:31 09/07/2024 12:10:33 Deviated nasal septum 110622162 J34.2 Bilateral disorder of Eustachian tubes 1052839522 180067 H69.93 Benign edwar plasm of nose, middle ear and accessory sinuses 985085038 D14.0 Sensorineu ral hearing loss of bilateral ears 196696301 H90.3 Bilateral sensorineu ral hearing loss with slight conductive component in the right ear. There is no evidence of any middle ear fluid. Therefore, consider [place]ificat [place] [id number] SABRINA TIAN [facility] [address] [address] 09/07/2024 12:01:06 09/07/2024 12:57:44 Mixed conductive and sensorineural hearing loss of right ear 8621624886 9105 H90.A31 Sensorineu ral hearing loss in left ear 0032594697 9109 H90.A22 Audiologic al evaluation results: Right ear: {{Normal N ormal through 2 kHz Mild* Moderate M oderately- severe Sev ere Profou nd}} {{hearing sloping to a mild slopi ng to a moderate s loping to moderately severe slo ping to severe slo ping to profound* flat high frequency low frequency mid frequency cookie bite gross curve}} {{with sen sorineural hearing loss with condu ctive hearing loss with mixed hearing loss with*}} {{excellen t good* fa ir poor no measurable }} word recognitio n. Left ear: {{Normal N ormal through 2 kHz* Mild Moderate M oderately- severe Sev ere Profou nd}} {{hearing sloping to a mild slopi ng to a moderate s loping to moderately severe slo ping to severe* sl oping to profound f lat high frequency low frequency mid frequency cookie bite gross curve}} {{with sen sorineural hearing loss with* cond uctive hearing loss with mixed hearing loss with}} {{excellen t* good fa ir poor no measurable }} word recognitio n. Tympanomet ry: Right Ear:{{Type A Type As Type Ad Type C Type C, shallow & rounded Ty pe B Type B with large volume Cou ld not maintain a hermetic seal*}} Left Ear:{{Type A Type As Type Ad Type C Type C, shallow & rounded Ty pe B Type B with large volume Cou ld not maintain a hermetic seal*}} [id number] SABRINA TIAN [place] 100 [facility],[place] [address] [place] [address] 09/29/2024 09:58:25 09/30/2024 07:18:39 Mixed conductive and sensorineural hearing loss of right ear 6973548788 9105 H90.A31 [facility]: [facility]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 Demos used: Infinio 90 Sphere Patient motivation : He is motivated to to hear betting in his right ear. Purchased? yes Ordered:Ph onak Infinio 90 [id number] right- large vented dome used today. CARROLL scheduled for 10/13 [id number] SABRINA TIAN [place] [address] [facility],[place] [address] [place] [address] 10/13/2024 12:59:14 10/14/2024 07:55:14 Mixed conductive and sensorineural hearing loss of right ear 5093362812 9105 H90.A31 Hearing Aid Orientatio n Manufactur er: Phonak Infinio 90 SphereColo r: Graphite grayEarpie ce: M1R with large vented dome Serial NumbersRig ht: [id number] eft: NA Warranty: 10/30/2027 Accessorie s: ChargerGO Real ear: Done with pretty good success- I would like a little more gain in the highs. Reviewed:elva quintanavicvol ume control- he may have to figure out if any of his fingers can feel it.Did NOT pair to phone Follow up 2 weeks.Maxine ent knows to call with any major problems. [id number] SABRINA TIAN [place] 100 [facility] [address] 100 [place] [address] 10/27/2024 13:00:35 10/27/2024 16:26:49 Sensorineural hearing loss of bilateral ears 091402957 H90.3 [id number] BOB GARIBAY MD [facility] [address] [place] [address] 11/26/2024 10:51:24 11/26/2024 11:19:15 Recurrent respiratory papillomatosis 255146077 D14.4 Deviated nasal septum 12 6811602 J34.2 Health Concerns Section Related Observation LastModified by Organization Detai ls LastModified Time None Recorded Concern Status LastModified by Organization Details LastModified Time None Recorded Advance Directives Directive None Recorded Payers Encounter Date Sequence Insurance Name Policy Number Policy Mcwilliams Covered Member ID Mcwilliams Member ID Guarantor Name 09/07/2024 1 [place] [employer] Zaid Becker [id number] Zaid Becker 09/07/2024 2 [place] [id number] Zaid Francoley [id number] Zaid Francoley 09/29/2024 1 [place] [place] Zaid Becker [id number] Zaid Becker 09/29/2024 2 [place] [id number] Zaid Francoley [id number] Zaid Francoley 10/13/2024 1 [place] [employer] Zaid Becker [id number] Zaid Francoley 10/13/2024 2 [place] [id number] Zaid Becker [id number] Zaid Becker 10/27/2024 1 [place] [facility] Zaid Becker [id number] Zaid Becker 10/27/2024 2 [place] [id number] Zaid Becker [id number] Zaid Becker 11/26/2024 1 [place] Zaid Becker [id number] Zaid Becker 11/26/2024 2 [place] [id number] Zaid Becker [id number] Zaid Becker Notes Date Note Type Note Provider Name and Address Organization Details Recorded Time 09/07/2024 text/html Long hx of right ETD and nasal papilloma. Multiple procedures. Missed appt in February.Has issues with balance due to diabetic neuropathy and long COVIDFeels hearing betterHad Gardasil vaccine BOB SOTO MD [address] [place] [address], [phone], [place] - [facility] 09/07/2024 12:22:59 11/26/2024 text/html Recurrent papill helena nasal surface soft palateFeels ears are stable.Still having issues with HTNperipheral neuropathy BOB SOTO MD [address] [place] [address], [address], [facility] - [facility] 11/26/2024 11:16:15
--- OUTSIDE RECORDS SUMMARY | 2024-12-10 12:01 | XMS_ITS | Data Portability ---
Author Organization [place] - [facility], [facility] Address [address] [place] [address] Assessment Encounter Date Assessment Date Assessment LastModified by Organization Details LastModified Time 06/12/2024 06/12/2024 I am seeing the patient today under the supervision of Dr Shaw who was available but who did not see the patient. benjamin Not available 06/12/2024 11:10:04 10/02/2024 10/02/2024 I am seeing the patient today under the supervision of Dr Shaw who was available but who did not see the patient. benjamin Not available 10/02/2024 10:52:33 Plan of Treatment Reminders Order Date Submit Date Provider Last Modified By Organization Details Last Modified Time Details Appointments RECHECK 15 2024 10:00A M Miguel Vargas PA-C Not available Not available Not available Lab None recorded . Referral None recorded . Procedures None recorded . Surgeries None recorded . Imaging None recorded . Medication Orders None recorded . Patient TargetsNo targets recorded. Patient InstructionsNo instructions recorded. Reason for Referral None Reported. Results Created Date Observation Date Name Description Value Unit Range Abnormal Flag Note LastModifiedBy Organization Detail LastModifiedTime 07/10/20 24 12/08/2019 imagi ng/di agnos tic resul t No observ ation record ed. [email or web address] Not Available 06/13 02:09:39 Result Notes None recorded. Problems Name Problem SNOMED Code Status Onset Date Resolution Date Notes Provider Name and Address Organization Details Recorded Time No complaints 142293021 Active Status : 'A'; Not Available [facility] 4 09:20:51 Osteoarthr itis of left hip joint 4437336749948 08 Active 2023 Miguel Vargas PA-C [address], [place], [address] , [facility] 4 11:10:04 Osteoarthr itis of right hip joint 5482542017369 07 Active 2023 Miguel Vargas PA-C [address], [place], [address] , [facility] 4 11:10:04 Trochanter ic bursitis of left hip 7516330206336 03 Active 2023 Miguel Vargas PA-C [address], [place], [address] , [facility] 4 15:19:26 Problem Notes None recorded. Procedures Surgical History Date Name Laterality Status Provider Name and Address Organization Details Recorded Time 10/02/2024 [facility] completed Miguel Vargas PA-C [address], [place], [address], [facility] 10/02/2024 10:52:29 06/12/2024 [facility] completed Miguel Vargas PA-C [address], [place], [address], [facility] 06/12/2024 15:19:18 Imaging Results Imaging Date Name Status [facility]Modified by [facility] Details LastModified Time 12/08/2019 imaging/diag nostic result completed [email or web address] Information not available 07/10/2024 02:09:39 Procedure Notes None recorded. Medical Equipment None Reported. Allergies No known drug allergies Medications Name Sig Start Date Stop Date Status Note LastModified by Organization Details LastModified Time bupropion HCl SR 150 mg tablet,12 hr sustained-r elease TAKE 1 TABLET BY MOUTH TWICE DAILY active Not Available Not Available No t Available clonidine HCl 0.1 mg tablet TAKE 1 TABLET BY MOUTH EVERY DAY DIRECTED active Not Available Not Available No t Available meloxicam 15 mg tablet TAKE 1 TABLET BY MOUTH EVERY DAY active Not Available Not Available No t Available lisinopril 20 mg tablet TAKE 1 TABLET BY MOUTH EVERY DAY active Not Available Not Available No t Available Lantus U-100 Insulin 100 unit/mL subcutaneou s solution active Not Available Not Available N ot Available clonidine HCl 0.2 mg tablet TAKE 1 TABLET BY MOUTH TWICE DAILY active Not Available Not Available No t Available dicyclomine 20 mg tablet TAKE 2 TABLETS BY MOUTH THREE TIMES DAILY active Not Available Not Available No t Available pseudoephed rine-guaife nesin ER 80-700 mg tablet,exte nded release 1 tablet every 4-6 hours as needed for pain 07/03 completed Statu s: 'Disc ontin ued'; Not Available Not Available Not Available lisinopril 10 mg tablet TAKE 1 TABLET BY MOUTH DAILY active Not Available Not Available No t Available guanfacine 1 mg tablet TAKE 1 TABLET BY MOUTH EVERY DAY active Not Available Not Available No t Available betamethaso ne dipropionat e 0.05 % topical cream APPLY THIN LAYER TOPICALLY TO THE AFFECTED AREA EVERY DAY active Not Available Not Available No t Available tobramycin 0.3 %-dexametha sone 0.1 % eye drops,suspe nsion SHAKE WELL AND INSTILL 3 DROPS INTO AFFECTED EAR TWICE DAILY FOR 5 DAYS active Not Available Not Available No t Available Novolog FlexPen U-100 Insulin aspart 100 [...] Max U-300 SoloStar 300 unit/mL (3 mL) subcutaneou s insulin pen ADMINISTE R 30 UNITS [...] and Address Organization Details Last Updated DateTime 06/12/2024 177.8 cm 30.1 kg/m2 45610.4 g [facility] 06/12/2024 15:13:37 Date Recorded Body height Body mass index (BMI) Body weight Provider Name and Address Organization Details Last Updated DateTime 10/02/2024 177.8 cm 30.1 kg/m2 72496.4 g [facility] 10/02/2024 10:31:11 Social History None recorded. Functional Status None recorded. Mental Status None recorded. Family History Nothing Reported. Medical History No medical history recorded. Past Encounters Encounter ID Performer Location Encounter Start Date Encounter Closed Date Diagnosis/Indication Diagnosis SNOMED-CT Code Diagnosis ICD10 Code Diagnosis Note [id number] [facility]au[facility] [address] [place] [address] 06/12/2024 15:01:49 07/07/2024 15:36:00 Trochanteric bursitis of left hip 2354865223 16880 M70.62 [id number] RADAMES Chauhan [address] [place] [address] 10/02/2024 10:27:21 10/29/2024 10:26:12 Trochanteric bursitis of left hip [id number] 26097 M70.62 Health Concerns Section Related Observation LastModified by Organization Detai ls LastModified Time None Recorded Concern Status LastModified by Organization Details LastModified Time None Recorded Advance Directives Directive None Recorded Payers Encounter Date Sequence Insurance Name Policy Number Policy Mcwilliams Covered Member ID Mcwilliams Member ID Guarantor Name 06/12/2024 1 [place] [employer] Zaid Becker [id number] Zaid Becker 06/12/2024 2 [place] [id number] Zaid Becker [id number] Zaid Becker 10/02/2024 1 [place] Zaid Becker [id number] Zaid Becker 10/02/2024 2 [place] [id number] Zaid Becker [id number] Zaid Becker
--- OUTSIDE RECORDS SUMMARY | 2024-12-10 12:01 | XMS_ITS | Data Portability ---
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 Education was provided on healthy nutrition, including a diet rich in fruits and vegetables, minimizing simple carbohydrates, salt, and saturated fats. Encouraged regular cardiovascular exercise such as walking at least 30 minutes daily, 5 times per week. Emphasized preventive health measures and educated pt on fall prevention and community-based lifestyle interventions to help reduce health risks and promote healthy living. 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 [...] Details Appointments FOLLOW UP 15 2024 11:45A Emmanuel DUMONT Not available Not available Not available Lab lipid panel, blood 2023 024 [facility], [address] [place] [address], [id number], 02/12/2024 11:55:17 CBC w/ auto diff 2023 024 [facility], [address] [place] [address], [id number], 02/21/2024 16:03:20 CMP, serum or plasma 2023 024 [facility], [address] [place] [address], [id number], 02/12/2024 11:55:17 HbA1c (hemoglob in A1c), blood 2024 025 [facility], [address] [place] [address], [id number], 12/04/2024 10:09:59 CMP, serum or plasma 2024 025 [facility], [address] [place] [address], [id number], 12/04/2024 10:09:59 Referral None recorded. Procedures None recorded. Surgeries None recorded. Imaging CT, abdomen + pelvis, w/ contrast - creat 0.9 gfr >60 2023 024 [facility], [address] [place], [id number], 01/24/2024 08:20:34 Medication Orders naltrexon e 1.5 mg capsule 2023 024 [id number], [address] [place], [place], [id number], 08/10/2024 15:23:25 bupropion HCl SR 150 mg tablet,12 hr sustained -release 2023 024 [id number], [address] [place], [place], [id number], 02/12/2024 11:58:15 naltrexon e 1.5 mg capsule 2023 024 [id number], [address] [place], [place], [id number], 08/10/2024 15:23:25 naltrexon e 4.5 mg capsule 2023 024 [facility], [address] [place] [address], [id number], 08/10/2024 15:28:07 Patient TargetsNo targets recorded. Patient Instructions Encounter Date Encounter Id Patient Instructions Last Modified By Organization Details Last Modified Time 01/22/2024 [id number] abdominal pain: care instructions Not available 01/22/2024 09:36:45 02/12/2024 [id number] learning about mood disorders Not available 02/12/2024 11:53:59 Discussed and explained advance directives such as standard forms to the {{patient caregiv er patient and caregiver}}. Face to face discussion lasted for a duration of ___ minutes. Not available 02/10/2024 14:05:23 04/24/2024 [id number] learning about type 1 diabetes Not available 04/24/2024 12:23:38 type 1 diabetes: care instructions Not available 04/24/2024 12:23:38 abdominal pain: care instructions Not available 04/24/2024 12:23:38 12/04/2024 [id number] irritable bowel syndrome: care instructions Not available 12/04/2024 10:05:33 learning about type 1 diabetes Not available 12/04/2024 10:05:33 type 1 diabetes: care instructions Not available 12/04/2024 10:05:33 Reason for Referral None Reported. Results Created Date Observation Date Name Description Value Unit Range Abnormal Flag Note LastModifiedBy Organization Detail LastModifiedTime Result Notes None recorded. Problems Name Problem SNOMED Code Status Onset Date Resolution Date Notes Provider Name and Address Organization Details Recorded Time Hyperten sive disorder 99705302 Active 2018 Not Available [facility] 3 12:53:16 Raynaud' s disease 157628698 Active 2018 Not Available [facility] 3 12:53:16 Hypercho lesterol emia 56825533 Active 2018 Not Available [facility] 3 12:53:16 Irritabl e bowel syndrome 94237263 Active 2018 Not Available [facility] 3 12:53:15 Gastroes ophageal reflux disease 749968169 Active 2018 Not Available [facility] 3 12:53:16 Osteoart hritis 567668046 Active 2018 shoulder Not Available [facility] 3 12:53:16 Type 1 diabetes mellitus 83457854 Active 2018 Not Available [facility] 3 12:53:16 Spinal stenosis in cervical region 93523190 Completed 201803/23/2019 Sandeep Dumont, DO [address] [place] [address], [address], [facility] 9 16:22:56 Spinal stenosis of lumbar region 70663520 Active 2018 Not Available [facility] 3 12:53:16 Degenera tion of interver tebral disc 92478589 Active 2018 Not Available [facility] 3 12:53:16 Rhinophy sd 32026859 Active 2018 Not Available [facility] 3 12:53:16 Allergic rhinitis 25951162 Active 2018 Not Available [facility] 3 12:53:16 Mood disorder 20280664 Active 2018 affectiv e disorder Not Available [facility] 3 12:53:16 Alcohol abuse 35900016 Active 2018 Not Available [facility] 3 12:53:16 Tinnitus of right ear 7182033881 108 Active 2018 Not Available [facility] 3 12:53:16 Papillom a 542819371 Active 2021 Not Available [facility] 3 12:53:16 Trochant ann bursitis of left hip 1146719153 20067 Active 2021 Not Available [facility] 3 12:53:16 Cramp in lower limb 481518170 Active 2021 Not Available [facility] 3 12:53:16 COVID-19 542698559 Active 2021Oct 2022 Not Available [facility] 3 12:53:16 Acute bronchit is 36090298 Active 2021 Not Available [facility] 3 12:53:15 Atypical chest pain 441317613 Active 2022 Not Available [facility] 3 12:53:15 Dyspnea 550535931 Active 2022 Not Available [facility] 3 12:53:16 Post-acu te COVID-19 5991009438 Active 2022 Not Available [facility] 3 12:53:15 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 9865729310 Active 2022 Not Available [facility] 3 12:53:15 Irritabl e bowel syndrome with diarrhea 716902105 Active 2022 Not Available [facility] 3 12:53:16 Mild neurocog nitive disorder 620650702 Active 2022 Not Available [facility] 3 12:53:16 Tinnitus 21400138 Active 2022 Not Available [facility] 3 12:53:16 Tinnitus 45303119 Active 2022 Not Available [facility] 3 12:53:16 Diabetic peripher al neuropat hy 420587281 Active 2022 Not Available [facility] 3 12:53:16 Left lower quadrant pain 206848133 Active 2023 Sandeep Dumont, DO [address] [facility] [place], [address], [facility] 4 09:33:43 Depressi ve disorder 78101100 Active 2023 Sandeep Dumont, DO [address] [place], [address], [facility] 4 09:36:34 Problem Notes None recorded. Medical Equipment None Reported. Allergies Allergen ID Allergen Name Allergen Category Reaction Reaction Severity Criticality Documentation Date Start Date Code Code System Note Provider Name and Address Organization Details Recorded Time 2722 diclofena c Not available Not available Not available Not available 12/02/2018 3355 [facility] 9 16:13:45 272 Non-stero idal anti-infl ammatory agent (product) medicatio n Not available Not available Not available 12/03/2018 38407 005 SNOMED IBS acts up [facility] 9 13:50:35 7934 Substance with morphinan structure and opioid receptor agonist mechanism of action (substanc e) medicatio n itching Not available high 02/12/2024 94971 9000 SNOMED [facility] 4 11:19:26 8695 lisinopri l medicatio n angioedem a Not available high 12/04/2024 05563 RxNorm Sandeep Dumont, DO [address] [place], [address], [facility] 5 09:59:04 Medications Name Sig Start Date [...] TAKE 1 TABLET BY MOUTH TWICE DAILY 12/28/ 2024 active Not Available Not Available Not [...] and Address Organization Details Last Updated DateTime 4 177.8 cm 29.1 kg/m2 30288.2 5 g 92 /min 93 % 93 % 142 mm[Hg] 70 mm[Hg] Yasmin Verdugo [facility] 4 11:21:52 Date Recorded Body height Body mass index (BMI) Body weight Heart rate Oxygen saturation Oxygen saturation in Arterial blood by Pulse oximetry Systolic blood pressure Diastolic blood pressure Provider Name and Address Organization Details Last Updated DateTime 4 177.8 cm 28 kg/m2 35036.5 1 g 60 /min 95 % 95 % 118 mm[Hg] 74 mm[Hg] Lali Dillard [facility] 4 11:49:22 Date Recorded Body height Body mass index (BMI) Body weight Heart rate Oxygen saturation Oxygen saturation in Arterial blood by Pulse oximetry Systolic blood pressure Diastolic blood pressure Provider Name and Address Organization Details Last Updated DateTime 4 177.8 cm 27.5 kg/m2 04956.7 4 g 68 /min 96 % 96 % 150 mm[Hg] 80 mm[Hg] Yasmin Verdugo [facility] 4 15:00:00 Date Recorded Systolic blood pressure Diastolic blood pressure Provider Name and Address Organization Details Last Updated DateTime 08/10/2024 136 mm[Hg] 78 mm[Hg] Sandeep Dumont, DO [address] [place] [address], [place], [address], [facility] 08/10/2024 15:13:58 Date Recorded Body height Body mass index (BMI) Body weight Heart rate Oxygen saturation Oxygen saturation in Arterial blood by Pulse oximetry Systolic blood pressure Diastolic blood pressure Provider Name and Address Organization Details Last Updated DateTime 5 177.8 cm 27.8 kg/m2 64337.9 2 g 79 /min 98 % 98 % 170 mm[Hg] 80 mm[Hg] Yasmin Verdugo [facility] 5 09:44:50 Social History Question Answer Notes LastModified by Organizat ion Details LastModified Time Tobacco Smoking Status Never Smoker Catie sadler [facility] 07/27/2022 09:51:02 What Was The Date Of Your Most Recent Tobacco Screening? 08/10/2024 [email or web address] Information not available 08/10/2024 Do You Or Have You Ever Used Any Other Forms Of Tobacco Or Nicotine? No [email or web address] Information not available 10/25/2023 Sex: Unknown Functional Status None recorded. Mental Status None recorded. Family History Nothing Reported. Medical History No medical history recorded. Immunizations Vaccine Type Date Status Note Provider Nam e and Address Organization Details Recorded Time COVID-19, mRNA, LNP-S, PF, 100 mcg/0.5mL dose or 50 mcg/0.25mL dose 02/03/20 21 completed Janie sadler [facility] 05/29/2021 16:46:13 Pneumococcal conjugate PCV 13 11/06/20 16 [facility]2021 16:46:45 COVID-19, mRNA, LNP-S, PF, 100 mcg/0.5mL dose or 50 mcg/0.25mL dose 10/24/20 21 [facility] 10/25[facility]2021 13:53:02 Influenza, split virus, quadrivalent, preservative 08/15/20 18 completed Sandeep Dumont, DO [address] [place] [address], [place], [address], [facility] 08/16/2018 15:23:56 zoster recombinant 03/06/20 22 completed Marilyn Platt [facility] 03/07/2022 13:50:21 influenza, intradermal, quadrivalent, preservative free 07/26/20 22 [facility] 07/27/2022 09:52:42 zoster live 07/26/20 22 completed Catie Capone [facility] 07/27/2022 09:53:06 COVID-19, mRNA, LNP-S, PF, 50 mcg/0.5 mL dose 05/23/20 22 [facility] 12/18/2022 08:13:18 COVID-19, mRNA, LNP-S, PF, 50 mcg/0.5 mL dose 08/07/20 22 completed Jolene sadler [facility] 12/18/2022 08:13:25 COVID-19 Non-US Vaccine, Product Unknown 09/04/20 23 completed Yasmin sadler [facility] 09/04/2023 14:09:04 influenza, unspecified formulation 09/04/20 23 completed Yasmin sadler [facility] 09/04/2023 14:09:28 influenza, unspecified formulation 10/16/20 24 completed Lali sadler [facility] 10/19/2024 08:03:11 SARS-COV-2 (COVID-19) vaccine, UNSPECIFIED 10/16/20 24 completed Lali sadler [facility] 10/19/2024 08:03:20 pneumococcal polysaccharide PPV23 08/24/20 15 completed Naya sadler [facility] 12/02/2018 16:29:19 zoster live 05/25/20 14 completed Naya sadler [facility] 12/02/2018 16:29:53 Td (adult) 06/11/20 14 completed Naya sadler [facility] 12/02/2018 16:30:23 Influenza, split virus, quadrivalent, preservative 10/09/20 19 completed Sandeep Dumont DO [address] [place] [address], [place], [address], [facility] 10/11/2019 09:53:38 COVID-19, mRNA, LNP-S, PF, 100 mcg/0.5mL dose or 50 mcg/0.25mL dose 01/05/20 21 completed Marilyn sadler [facility] 01/27/2021 15:28:42 Past Encounters Encounter ID Performer Location Encounter Start Date Encounter Closed Date Diagnosis/Indication Diagnosis SNOMED-CT Code Diagnosis ICD10 Code Diagnosis Note [id number] February MELISSA Rosa [facility] [address] [facility],[place] [address] 12/03/2018 13:43:00 12/03/2018 16:15:41 Type 1 diabetes mellitus 37257258 E10.9 hasn't been in quite some time last a1c 6.9 in february, retest states he usually sees , but he hasn't been here Hyperlipidemia 68261236 E78.5 on atorvatsta tin needs labs Essential hypertension 60383538 I10 on lisinopril - well controlled Gastroesop hageal reflux disease 670084664 K21.9 intermitte nt, uses omeprazole or ranitidine as needed for gerd Irritable bowel syndrome 08362355 K58.9 improves sx, but would like to increase dose for better control Osteoarthritis 137972939 M19.90 [id number] Sandeep Dumont DO [facility] [address] [facility],[place] [address] 03/02/2019 13:50:36 03/02/2019 14:31:02 Type 1 diabetes mellitus 58662132 E10.8 he continues to self treat does not get lab work (states he cant afford it) relates is not using insulin daily but his a1c 6.4!!!!! Hypertensive disorder 38 006788 I10 is stable now was very nervous Spinal ashok nosis of lumbar region 27954203 M48.061 will work up following his cspine eval Spinal ashok nosis in cervical region 37180638 M48.02 given onset of worsening symnptoms of arm radiculopa thy he needs an mri Rhinophyma 32020353 L71. 1 relates he is applying cortisone that he has left over from vet practice Alcohol abuse 09693198 F 10.10 long discussion re need to abstain as his LFTs are a problem Benign par oxysmal positional vertigo 533431746 H81.11 will refer ent Sandeep Dumont DO [facility] [address] [facility],[place] [address] 03/23/2019 15:51:32 03/24/2019 08:14:00 Tinnitus of right ear 8752776747 108 H93.11 awaiting the ENT referral has been using benadryl and sudafed(michell johnson) to clear his ears Spinal ashok nosis in cervical region 73786961 M48.02 MRI shows that he has stable hardware and no canal stenosis but he does have foraminal encroachme nt bilat Paresthesia 80019925 R20 .2 Liver func tion tests outside reference range 908803331 R94.5 [id number] Sandeep Dumont DO [facility] [address] [facility],[place] [address] 06/15/2019 15:54:08 06/15/2019 16:52:06 Hypertensive disorder 92998328 I10 is stable now was very nervous Degenerati on of intervertebral disc 38152150 M51.9 will cont to treat conserv Type 1 krystal betes mellitus 22365676 E10.8 he continues to self treat does not get lab work (states he cant afford it) relates is not using insulin daily states he is checking glucose bid but when asked to see glucos says he doesnt have any results to show or that he just guesses a random number relates that he didnt get any blood work that i had implored him to get last Alcohol abuse 00964497 F 10.10 long discussion re need to abstain as his LFTs are a problem but we can never be sure relates took some old codeine for some weight Depressive disorder 9926 9007 F32.0 will try a ssri for his depression [id number] Sandeep Dumont [facility] [address] [facility],[place] [address] 09/23/2019 10:43:14 09/23/2019 11:27:25 Hypertensive disorder 02277032 I10 is stable now was very nervous Type 1 krystal betes mellitus 92445389 E10.8 he continues to self treat does not get lab work (states he cant afford it) relates is not using insulin daily states he is checking glucose bid but when asked to see glucos says he doesnt have any results to show or that he just guesses a random number relates that he didnt get any blood work that i had implored him to get last Primary er ectile dysfunction 330273103 N52.9 doing this under the guise of dr hook discussed and instructed re his questions as best that i can Rosajessa 035237900 L71.9 wishes to try a topical will try to tx with lotion or gel Hernia of anterior abdominal wall 180536063 K43.9 reassuranc e call if any sudden worsening Sleep apnea 78669620 G47 .30 agrees to have this taken care of Hearing loss 29030893 H9 0.0 will order [id number] Sandeep Dumont [facility] [address] [facility],[place] [address] 10/23/2019 08:54:59 10/23/2019 09:19:17 Squamous cell carcinoma of upper extremity 957085126 C44.629 2 cm lesion R forearm 10 days sun exposed area Pain of le ft hip joint 0134285635 59188 M25.552 Left iliac crest pain [id number] Sandeep Dumont [facility] [address] [facility],[place] [address] 01/27/2021 15:15:40 01/27/2021 16:12:03 Type 1 diabetes mellitus 31485175 E10.8 a1c is 7.8 he continues to self treat does not get lab work relates is using insulin daily and 5 units ac states he is checking glucose bid but when asked to see glucos says he doesnt have any results to show reccc he get a diabetic foot exam he did get an diabetic eye exam as well and was good Hypertensive disorder 38 123867 I10 is stable now was very nervous Hepatitis C screening 41 1708619 Z11.59 next lab ordered lab slip given Abdominal aortic aneurysm screening 621497818 Z13.6 [id number] Sandeep Dumont DO [facility] [address] [facility],[place] [address] 05/30/2021 13:35:15 05/30/2021 14:09:38 Hypertensive disorder 81448808 I10 is stable now Type 1 krystal betes mellitus 64268494 E10.8 a1c is 7.0 and prior was 7.8 reviewed last lab in detail relates is using insulin daily states he is checking glucose bid but when asked to see glucos says he doesnt have any results to show reccc he get a diabetic foot exam he did get an diabetic eye exam as well and was good Hypercholesterolemia 136 94546 E78.00 had stopped the statin on his own Depressive disorder 3548 9007 F32.0 not currently taking Pre-surger y evaluation 825555618 Z01.818 per the 2017 ACC (revised) cardiac risk stratifica tion he is currently considered a low risk for the proposed ENT procedure. pt understand s to hold the meloxicam but to cont his usual medication s on the day of surgery with the exception of only taking half his dose of insulin.th e night before. [id number] Sandeep Dumont DO [facility] [address] [facility],[place] [address] 12/01/2021 08:27:36 12/01/2021 13:39:52 Type 1 diabetes mellitus 75929156 E10.8 a1c is 7.0 and prior was 7.8 reviewed last lab in detail relates is using insulin daily states he is checking glucose bid but when asked to see glucos says he doesnt have any results to show reccc he get a diabetic foot exam he did get an diabetic eye exam as well and was good Hypertensive disorder 38 811643 I10 is stable now Gastroesop hageal reflux disease 579347652 K21.9 seems to be stable Alcohol abuse 26565168 F 10.10 long discussion re need to abstain as his LFTs are a problem but we can never be sure Depressive disorder 3548 9007 F32.0 not currently taking Trochanter ic bursitis of left hip 9288962638 19465 M70.62 still having issues with this ok for him to get more active as necessusin g voltaren gel [id number] Sandeep Dumont DO [facility] [address] [facility],[place] [address] 03/19/2022 10:11:39 03/19/2022 10:57:57 Hypercholesterolemia 82428225 E78.00 had stopped the statin on his own Hypertensive disorder 38 212746 I10 is stable now Type 1 krystal betes mellitus 59626859 E10.8 a1c is 7.3 and prior was 6.7 reviewed last lab in detail relates is using insulin daily lantus at 20 and had been doing okalso uses 5-10u of novolog with meals reccc he get a diabetic foot exam he did get an diabetic eye exam as well and was good Papilloma 234402755 D36. 9 will require yet another surgery for this in post nasopharyn xwe will have him cont with spec Trochanter ic bursitis of left hip 9870946083 40280 M70.62 still having ongoing pain and now affecting his wall\cathy and also he can no longer stand for lengths of time because of it [id number] Sandeep Dumont DO [facility] [address] [facility],[place] [address] 07/27/2022 09:40:12 07/27/2022 10:43:08 Type 1 diabetes mellitus 66442729 E10.8 a1c is now 6.7 and is doing good 7.3 and prior was 6.7 reviewed last lab in detail relates is using insulin daily lantus at 20 and had been doing okalso uses 5-10u of novolog with meals reccc he get a diabetic foot exam he did get an diabetic eye exam as well and was good Cramp in lower limb 4499 17879 R25.2 pt will try the magnesium 400 Hypertensive disorder 38 987341 I10 is stable now and good readings at home Degenerati on of intervertebral disc 85719148 M51.9 will cont to treat conserv [id number] Sandeep Dumont, [facility] [address] [facility],[place] [address] 10/15/2022 14:24:52 10/15/2022 15:07:12 Hypercholesterolemia 19055662 E78.00 had stopped the statin on his own Hypertensive disorder 38 692624 I10 is stable now and good readings at home glucose readings look very good and he is actually feeling well Type 1 krystal betes mellitus 09334033 E10.8 a1c is now 6.7 and is doing good 7.3 and prior was 6.7 reviewed last lab in detail relates is using insulin daily lantus at 20 and had been doing okalso uses 5-10u of novolog with meals reccc he get a diabetic foot exam he did get an diabetic eye exam as well and was good Allergic rhinitis 121100 04 J30.9 sees schreibste in for the papilloma [id number] RAPHAEL SAUCEDO [facility] [address] [facility] [address] 12/05/2022 11:28:23 12/05/2022 12:21:46 Hypertensive disorder 53359188 I10 will trial patient on clonidine QDfu in a week to recheck will also update MB Irritable bowel syndrome 56490485 K58.9 will need refills [id number] RAPHAEL SAUCEDO [facility] [address] [facility],[place] [address] 12/18/2022 11:11:01 12/18/2022 16:11:12 Hypertensive disorder 89906625 I10 will continue the clonidine as the pt doesn't want to change medication Type 1 krystal betes mellitus 22091082 E10.8 the patient reports that he is having fluctuatio ns every other week or socan go up to 10 units [place] [id number] Sandeep Dumont DO [facility] Internal Medicine [address] [facility], christi [place] [address] 01/16/2023 11:31:20 01/16/2023 14:09:08 Type 1 diabetes mellitus [id number] E10.8 a1c is up to 7.4 was down to 6.7 relates is using insulin daily lantus at 20 and had been doing okbut he relates that he is changing his own dose of lantus and he is doing this without telling us also uses 5-10u of novolog with meals recc he get a diabetic foot exam he did get an diabetic eye exam as well and was good (he has not) Hypertensive disorder 38 342270 I10 is stable now and good readings at home glucose readings look very good and he is actually feeling well Depressive disorder 3548 9007 F32.0 not currently taking Advance care planning 71 3624901 Z71.89 utd Screening for malignant neoplasm of colon 375475401 Z12.11 he is already on a schedule for his colonoscop y Irritable bowel syndrome 18501472 K58.9 using the dicyclomin e with good results [id number] [facility] Internal Medicine [address] [facility], christi [place] [address] 02/20/2023 14:23:29 02/20/2023 16:05:07 Atypical chest pain [id number] R07.89 immediatel y start ASA 325 mg Dyspnea 609247898 R06.02 ddx includes PE, angina, ACStold to report to the ER immediatel y if his symptoms worsendecl ined ER today Essential hypertension 01916809 I10 been ranging high for the past month [id number] Sandeep Dumont DO [facility] [address] [facility],[place] [address] 03/20/2023 11:29:07 03/20/2023 14:03:18 Chronic song-OTNIK-77 syndrome 0434260650 U09.9 althoug he is somewhat improvedre lates that overall doing okand feeling betterusin g th e guaifen daily not twice ad daynow headaches are gone as well Essential hypertension 80622479 I10 home bps are notably improved now and doing good Type 1 krystal betes mellitus 53592270 E10.8 a1c is at 7.2 was at7.4 was down to 6.7 relates is using insulin daily lantus at 20 and had been doing okbut he relates that he is changing his own dose of lantus and he is doing this without telling us also uses 5-10u of novolog with meals recc he get a diabetic foot exam he did get an diabetic eye exam as well and was good (he has not) [id number] Sandeep Dumont, [facility] Internal Medicine [address],[place] [address] 07/24/2023 10:43:43 07/24/2023 11:53:06 Essential hypertension 12680542 I10 home bps are notably improved now and doing good Gastroesop hageal reflux disease 434011420 K21.9 seems to be stable Hypertensive disorder 38 237519 I10 is stable now and good readings at home glucose readings look very good and he is actually feeling well Type 1 krystal betes mellitus 33953029 E10.8 a1c is at 6.4 now 7.2 was at7.4 was down to 6.7 relates is using insulin daily lantus at 20 and had been doing okbut he relates that he is changing his own dose of lantus and he is doing this without telling us also uses 5-10u of novolog with mealsrecc he get a diabetic foot exam he did get an diabetic eye exam as well and was good (he has not) Post-acute COVID-19 1119 353504 U09.9 is bothered a lot by the numerous sx for this Irritable bowel syndrome with diarrhea 233672049 K58.0 still taking his dicyclomin e again reiterated the amount of Mg+ he is taking for leg cramps is too much Mild neuro cognitive disorder 141062202 G31.84 caused by covid 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 pt is struggling with this Tinnitus 54860487 H93.19 discussion this has been ongoing and is seeing an ENT next week Diabetic p eripheral neuropathy 612287010 E11.40 actually seems to be better and is more steady on his feet noted correspond ing improvemen t with improved glucose readings [id number] Sandeep Dumont [facility] Internal Medicine [address] [facility], [place] [address] 10/25/2023 11:05:20 10/25/2023 13:37:26 Essential hypertension 07632125 I10 home bps are notably improved now and doing good Hypercholesterolemia 136 61205 E78.00 had stopped the statin on his own Hypertensive disorder 38 585185 I10 is stable now and good readings at home glucose readings look very good and he is actually feeling well Type 1 krystal betes mellitus 45457382 E10.8 a1c is at 6.4 in jul didnt get latest 7.2 was at7.4 was down [...] good (he has not) Irritable bowel syndrome with diarrhea 759264016 K58.0 still taking his dicyclomin e but only rarely [id number] Sandeep Dumont DO [facility] Internal Medicine [address] [facility], Biofortunajesi [place] [address] 01/22/2024 08:01:29 01/22/2024 09:49:46 Left lower quadrant pain 558996472 R10.32 Hypertensive disorder 38 717491 I10 is stable now and good readings at home glucose readings look very good and he is actually feeling well Type 1 krystal betes mellitus 28943847 E10.8 a1c is at 6.4 in jul didnt get latest 7.2 was at7.4 was down [...] well and was good (he has not) Depressive disorder 3548 9007 F32.0 not currently taking any med per his decision [id number] Sandeep Dumont [facility] Internal Medicine [address] [facility],[place] [address] 02/12/2024 11:14:26 02/12/2024 12:15:06 Adult health examination 995269244 Z00.01 Screening for cardiovascular system disease 394471371 Z13.6 Screening for malignant neoplasm of colon 733293654 Z12.11 he is already on a schedule for his colonoscop y 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 3264523630 U09.9 he is still struggling with the mentation and cognitive issueaccor tracy to the study in the brain behavioral immun health aug 2022 will try the naltrexone 1mg daily Mood disorder 84825825 F 39 will begin wellbutrin 150 bid [id number] Sandeep Dumont [facility] Internal Medicine [address] [facility],[place] [address] 04/24/2024 11:34:16 04/24/2024 12:38:31 Depression screening 907820225 Z13.31 SCREENING NEGATIVE Left lower quadrant pain 354843066 R10.32 this is now gone and he feels markedly better Type 1 krystal betes mellitus 81998302 E10.8 a1c is at 6.4 in jul get latest 7.2 was at7.4 was down [...] well and was good (he has not) 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 6643648782 U09.9 he is still struggling with the mentation and cognitive issueaccopadma molina to the study in the brain behavioral immun health oct 2022but brain fog has cleared taking clonidine guaefensin e and lisinopril for bp will try the naltrexone 1mg daily [id number] Sandeep Dumont [facility] Internal Medicine [address] [facility],[place] [address] 08/10/2024 14:45:41 08/11/2024 09:29:53 Hypercholesterolemia 41619498 E78.00 had stopped the statin on his own Hypertensive disorder 38 481882 I10 is stable now and good readings at home glucose readings look very good and he is actually feeling well Type 1 krystal betes mellitus 35694386 E10.8 a1c is at7.2 was 6.8 in nov and prior 6.4 in jul didnt get latest 7.2 was at7.4 was down [...] well and was good (he has not) 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 1801180408 U09.9 he is still struggling with the mentation and cognitive issueaccor tracy to the study in the brain behavioral immun health augut brain fog has cleared taking clonidine guaefensin e and lisinopril for bp will try the naltrexone 1mg daily [id number] Sandeep Dumont [facility] Internal Medicine [address] [facility],[place] [address] 12/04/2024 09:32:43 12/04/2024 10:13:34 Hypertensive disorder 85956947 I10 bp is elevated and not controlled Type 1 krystal betes mellitus 57580309 E10.8 a1c is pending sugars checked at home are elevated was at 7.2 was 6.8 in nov 2023 and prior 6.4 in jul didnt get latest 7.2 was at7.4 was down [...] good (he has not) Irritable bowel syndrome 77520674 K58.9 using the dicyclomin e with good results 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 3262073314 U09.9 he is still struggling with the [...] Member ID Mcwilliams Member ID Guarantor Name 01/22/2024 1 [place] Zaid Francoley [id number] Zaid Santee 01/22/2024 2 [place] [id number] Zaid Francoley [id number] [facility] 02/12/2024 1 [place] Zaid Francoley [id number] Zaid Santee 02/12/2024 2 [place] [id number] Zaid Francoley [id number] Zaid Santee 04/24/2024 1 [place] Zaid Francoley [id number] [facility] 04/24/2024 2 [place] [id number] Zaid Wilson Eugenio [id number] Zaid Santee 08/10/2024 1 [place] Zaid Becker [id number] Zaid Santee 08/10/2024 2 [place] [id number] Zaid Wilson Eugenio [id number] Zaid Santee 12/04/2024 1 [place] Zaid Francoley [id number] Zaid Eugenio 12/04/2024 2 [place] [id number] Zaid Becker [id number] Zaid Becker Notes Date Note Type Note Provider Name and Address Organization Details Recorded Time 4 text/htm l patient is evaluated via tele/video assessment per patient consentduring current pandemic relates that he had episode of severe abd painnear left lower abd states did not receive any signif work up for this in the ERhad seen gastro and was told he was to get a colonoscopy in february MEDS- complaint, no ADRsDIET- non compliantcomplaint with low sugar, lean proteins, lots of veggies, low refined CHO, still using ETOH, doesn't use tobacco productsEXERCISE- does not exercise, recognizes the importance, struggles with motivationLIPIDS- at goalCMP- within normal limitsAIC- at goalMICROALBUMIN- within normal limitsEYE EXAM- last done:next due soonFOOT EXAM- last done:next due:ron4 Sandeep Dumont, DO [address] [place], [address], [facility] 01/22/2024 09:37:27 4 text/htm l Medicare Annual Wellness VisitReported bypatient.Diet and Nutrition:healthy diet Fracture Risk:no history of fractures; no recent explained fracture; no sudden unexplained fractures; no previous musculoskeletal injuries Physical Activity:exercises on a regular basis; recent increase in physical activity; good physical condition Depression Risk:never feels sad, empty, or tearful; no loss of interest in activities; no significant changes in weight; no sleep disturbances or insomnia; no agitation; no loss of energy; no feelings of worthlessness or guilt; no thoughts of suicide; no history of depression; no history of mood disorders Orientation:no disorientation to time; no disorientation to date; no disorientation to place Concentration and Memory:no decreased concentrating ability; no memory lapses or loss; does not forget words Speech/Motor difficulties:no speech difficulties; no difficulty expressing formulated concepts; no difficulty with fine manipulative tasks; no difficulty writing/copying; no slowed reaction time; does not knock things over when trying to pick them up Hearing:no loss of hearing Vision:no vision problems Activities of Daily Living:able to bathe with limited or no assistance; able to contol urination and bowels; able to dress with limited or no assistance; able to feed self with limited or no assistance; able to get out of chair or bed with limited or no assistance; able to groom with limited or no assistance; able to toilet with limited or no assistance Instrumental Activities of Daily Living:able to do house work with limited or no assistance; able to grocery shop with limited or no assistance; able to manage medications with limited or no assistance; able to manage money with limited or no assistance; able to prepare meals with limited or no assistance; able to use the phone with limited or no assistance Falls Risk Assessment:no frequent falls while walking; no fall in the past year; no fall since last visit; no dizziness/vertigo Home Safety:no unsafe alan hazzards; no unsafe stairs; no unsafe gas appliances; working smoke/CO detectors; wears protective head gear for biking/high velocity; use of seatbelts; practicing 'safer sex'; no vision or hearing loss while driving; no fire arms; has hand bars in the bathroom/shower; good lighting in the home Sandeep Dumont DO [address] [place] [address], [phone], [facility] 02/12/2024 11:55:39 4 text/htm l here for rechk and is doing better wellbutrin is working better and feels gooddoing weel more active and eating betterrelates that he Sandeep Dumont DO [address] [place] [address], [phone], [facility] 04/24/2024 12:27:25 4 text/htm l Care Management - DiabetesReported bypatient.Self Care:seeing eye doctor yearly for dilated eye exam; checking feet regularly; normal range of home blood sugars (in the low 100s); no side effects from medications Associated Symptoms:symptoms are usually well controlled; no fatigue; no dizziness; no excessive sweating; no headaches; no confusion; no increased thirst; no increased appetite; no increased urination; no blurred vision; no numbness of feet; no calluses on feetCare Management - HypertensionReported bypatient.Self Care:not under emotional stress Severity:symptoms are improving; does not interfere with daily activities Associated Symptoms:no dizziness; no lightheadedness; no chest pain; no shortness of breath; no palpitations; no edema; no calf muscle cramps; no blurred vision; no confusion; no headaches; no fatigue here for rechk of DM and BPstates he is feeling better with the lisinoprilseen at about week ago and given a brace for wrist pain seemed to get worse and felt he had a pvyga9y is 7.2he is feeling better overallmore active and physical Sandeep Dumont DO [address] [place] [address], [phone], [facility] 08/10/2024 20:07:53 5 text/htm l Care Management - DiabetesReported bypatient.Prognosis:expe cted outcome: improve; prognosis: good Self Care:seeing eye [...] bp iss elevated dm is up Sandeep Dumont DO [address] [place], [address], [facility] 12/04/2024 10:10:05
== END 2024-12-10 09:01 | disposition home or self-care (01) ==
LOC: HO.LAB 09:00
PROVIDERS: PCP Internal Medicine; Visit Provider Internal Medicine
DX: E10.8 Type 1 diabetes mellitus with unspecified complications (principal)
CPT/HCPCS: 36415; 80053; 83036

== ENCOUNTER 2025-02-15 15:18 | Outpatient (REF) | payer MEDICARE, SELFPAY ==
[2025-02-15 17:55] LABS: Estimated Average Glucose 163 mg/dL; Hemoglobin A1C 203.0321 umol/L; Hemoglobin A1c % 7.3 % (<6.0); Total Hemoglobin (HGBA1C) 3624.4014 umol/L
--- OUTSIDE RECORDS SUMMARY | 2025-02-15 18:07 | XMS_ITS | Continuity of Care Document ---
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 Plan of Treatment Reminders Order Date Submit Date Provider Last Modified By Organization Details Last Modified Time Details Appointments None record ed. Lab None record ed. Referral None record ed. Procedures None record ed. Surgeries None record ed. Imaging None record ed. Medication Orders None record ed. Patient TargetsNo targets recorded. Patient InstructionsNo instructions recorded. Reason for Referral None Reported. 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; Note: Changed from D37.09 to D37.05 (04/26/20 8:25 AM) , Date Diagnose d: 04/18/2020 9:09 AM (D37.09) Not [facility] 4 02:58:33 General unsteadi ness 071858981 Active 2021 Unsteadi ness on feet; Note: Date Diagnose d: 2 12:39 PM (R26.81) Not [facility] 4 02:58:33 Bilatera l tinnitus 04864105470 02 Active 2021 Tinnitus , bilatera l; Note: Date Diagnose d: 2 11:44 AM (H93.13) Not Available [facility] 4 02:58:31 History of SARS-CoV -2 [id number] 0255740 Active 2022 Personal history of COVID-19 ; Note: Date Diagnose d: 3 11:53 AM (Z86.16) Not Available [facility] 4 02:58:33 Deviated nasal septum 439289833 Active 2019 Deviated nasal septum; Note: Date Diagnose d: 0 2:00 PM (J34.2) Not Available [facility] 4 02:58:31 Human papillom a virus infectio n 793969625 Active 2019 Papillom avirus as the cause of diseases classifi ed elsewher e; Note: Date Diagnose d: 0 9:00 AM (B97.7) Not Available [facility] 4 02:58:32 Otorrhea of right ear 64087212059 27106 Completed 202006/12/2024 Otorrhea , right ear; Note: Date Diagnose d: 10/30/20 21 12:06 PM (H92.11) Not Available [facility] 4 02:58:31 Sensorin eural hearing loss in left ear 26577195333 109 Active 2019 Sensorin eural hearing loss, unilater al, left ear, with restrict ed hearing on the contrala teral side; Note: Date Diagnose d: 0 2:48 PM (H90.A22 ) Not Available [facility] 4 02:58:34 Polyneur opathy 44210809 Active 2021 Neuropat hy NOS; Note: Date Diagnose d: 2 12:39 PM (G62.9) Not Available [facility] 4 02:58:30 Abnormal auditory percepti on 85238681 Active 2019 Other abnormal auditory percepti ons, right ear; Note: Date Diagnose d: 0 1:28 PM (H93.291 ) Not Available [facility] 4 02:58:32 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; Note: Date Diagnose d: 0 1:47 PM (D10.5) Not Available [facility] 4 02:58:33 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 819088996 Active 2021 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; Note: Changed from E10.69 to E10.42 (05/03/20 11:53 AM) , Date Diagnose d: 2 12:10 PM (E10.69) Not Available [facility] 4 02:58:32 Ataxic gait 28018862 Active 2019 Ataxic gait; Note: Date Diagnose d: 0 1:47 PM (R26.0) Not Available [facility] 4 02:58:30 Allergic rhinitis 52490114 Active 2020 Allergic rhinitis : Due to [...] ; Start Date : 09/06/20 Not Available [facility] 4 02:58:31 Obstruct amie sleep apnea syndrome 71913676 Active 2022 Obstruct amie sleep apnea (adult) (pediatr ic); Note: Date Diagnose d: 3 11:53 AM (G47.33) Not Available [facility] 4 02:58:32 Dizzines s and giddines s 059622485 Active 2019 Dizzines s and giddines s; Note: Date Diagnose d: 10/21/20 10:48 AM (R42) Not Available [facility] 4 02:58:34 Mixed conducti ve and sensorin eural hearing loss of right ear 92851370110 105 Active 2019 Mixed conducti ve and sensorin eural hearing loss, unilater al, right ear with restrict ed hearing on the contrala teral side; Note: Date Diagnose d: 0 2:48 PM (H90.A31 ) Not Available [facility] 4 02:58:30 Disorder of right Eustachi an tube 72696673183 41889 Active 2019 Other specifie d disorder s of Eustachi an tube, right ear; Note: Date Diagnose d: 0 1:47 PM (H69.81) Not Available [facility] 4 02:58:32 Bilatera l disorder of Eustachi an tubes 37578493522 37167 Active 2023 BOB GARIBAY MD [address] [place] [address],[place] [address], [place], [address] , [facility] 4 11:31:54 Benign neoplasm of nose, middle ear and accessor y sinuses 008937011 Active 2023 BOB GARIBAY MD [address] [place] [address],[place] [address], [place], [address] , [facility] 4 11:31:59 Sensorin eural hearing loss of bilatera l ears 808068245 Active 2023 BOB GARIBAY MD [address] [place] [address],[place] [address], [place], [address] , [place] [facility] 4 12:19:53 Recurren t respirat ory papillom atosis 583391074 Active 2024 BOB GARIBAY MD [address] [place] [address],[place] [address], [place], [address] , [place] [facility] 5 11:13:30 Problem Notes None recorded. Procedures Surgical History Date Name Laterality Status Provider Name and Address Organization Details Recorded Time 11/26/19 25 Fiberoptic Laryngoscopy (Comprehensive) completed BOB SOTO MD [address] [facility] [place] [address], [place], [address], [facility] 11/26/2024 11:12:58 10/22/20 24 EXCISION OR DESTRUCTION OF LESION OF PHARYNX (SURG) completed John Hollingsworth [facility] 10/23/2024 17:03:10 09/07/20 24 Comp Audio (41804) completed SABRINA TIAN [address], [place], [address], [facility] 09/07/2024 12:02:40 09/07/20 24 Fiberoptic Laryngoscopy (Comprehensive) completed BOB SOTO MD [address] [facility] [place] [address], [place], [address], [facility] 09/07/2024 12:22:41 myringotomy and insertion of tympanic ventilation tube completed BOB SOTO MD 100 [facility] [address], [place], [address], [facility] 09/06/2024 09:52:10 Imaging Results None recorded. Procedure Notes None recorded. Medical Equipment None Reported. Allergies Allergen ID Allergen Name Allergen Category Reaction Reaction Severity Criticality Documentation Date Start Date Code Code System Note Provider Name and Address Organization Details Recorded Time 228000 Non-stero idal anti-infl ammatory agent (product) medicatio n other Not available Not available 03/24/2024 60996 005 SNOMED React ion: unkno wn, unspe cifie d;; Not Available [facility] 4 01:23:16 376641 Substance with morphinan structure and opioid receptor agonist mechanism of action (substanc e) medicatio n other Not available Not available 03/24/2024 18732 9000 SNOMED React ion: unkno wn, unspe cifie d;; Not Available [facility] 4 01:23:17 Medications Name Sig Start Date Stop Date Status Note LastModified by Organization Details LastModified Time losartan 50 mg tablet TAKE 1 TABLET BY MOUTH EVERY DAY active Not Available Not Available No t Available Augmentin 875 mg-125 mg tablet by mouth 04/19 completed Medicati on ID: [id number] D uration Value: 10 Prescri bed By [...] 5 drop 09/07 completed Medicati on ID: [id number] D uration Value: 5 Prescri bed By Name: Cha Mcfarland nd Name: ofloxaci n Send Method: E-Prescr ibed Sub s Allowed: subs OK Speci al Instruct ion: 5 drops into RIGHT ear twice daily for 5 days Med icationG enericNa me: ofloxaci n Not Available Not Available Not Available citalopra m 10 mg tablet 10/21 completed Medicati on ID: [id number] D uration Value: 30 Brand Name: citalopr am Send Method: E-Prescr ibed Sub s Allowed: subs OK [facility] citalopr am Not Available Not [...] eye drops 05/04 completed Medicati on ID: [id number] D uration Value: 5 Prescri bed By Name: Cha Mcfarland nd Name: Ciloxan Send Method: E-Prescr ibed Sub s Allowed: subs OK Speci al Instruct ion: Instill 4 drops twice a day into the affected ear Medi cationGe nericNam e: Ciloxan Not Available Not Available Not Available ofloxacin 0.3 % ear drops 4 drop into both ears 2019 active Medicati on ID: [id number] D uration Value: 3 Prescri bed By Name: Cha Mcfarland nd Name: ofloxaci n Send Method: E-Prescr ibed Sub s Allowed: subs OK [facility] n Not Available Not Available Not Available clonidine HCl 0.2 mg tablet TAKE 1 TABLET BY MOUTH TWICE DAILY active Not Available Not Available No t Available dicyclomi ne 20 mg tablet TAKE 2 TABLETS BY MOUTH THREE TIMES DAILY active Not Available Not Available No t Available Humalog U-100 Insulin 100 unit/mL subcutane ous solution 2019 active Medicati on ID: [id number] D uration Value: 28 Brand Name: Humalog U-100 Insulin Send Method: E-Prescr ibed Sub s Allowed: subs OK [facility] : Humalog U-100 Insulin Not Available Not Available Not Available meclizine 25 mg tablet 09/06 completed Medicati on ID: [id number] D uration Value: 10 Brand Name: meclizin e Send Method: E-Prescr ibed Sub s Allowed: subs OK Speci al Instruct ion: TAKE 1 TABLET BY MOUTH THREE TIMES A DAY IF NEEDED FOR 10 DAYS Med icationG enericNa me: meclizin e Not Available Not Available Not Available Cipro 500 mg tablet 1 tablet by mouth 05/29 completed Medicati on ID: [id number] D uration Value: 10 Prescri bed By Name: Cha Mcfarland nd Name: Cipro Se nd Method: E-Prescr ibed Sub s Allowed: subs OK [facility] Not Available Not Available [...] single dose 10/30 completed Medicati on ID: [id number] D uration Value: 1 Brand Name: Gardasil 9 (PF) Sen d Method: E-Prescr ibed Sub s Allowed: subs OK Speci al Instruct ion: bring to appointm ent [facility] nericNam e: Gardasil 9 (PF) Not Available Not Available Not Available Gardasil 9 (PF) 0.5 mL intramusc ular suspensio n Inject 1 ml intramus cularly as directed 11/03 completed Medicati on ID: [id number] D uration Value: 1 Brand Name: Gardasil 9 (PF) Sen d Method: E-Prescr ibed Sub s Allowed: subs OK Venkata al Instruct ion: bring to office, to [...] SNOMED-CT Code Diagnosis ICD10 Code Diagnosis Note [id number] SABRINA TIAN [place] [address] [facility] 100 [facility] RACHANA DILLON [address] 02/10/2025 12:59:55 02/13/2025 14:04:37 Mixed conductive and sensorineural hearing loss of right ear [id number] 9105 H90.A31 Hearing Aid Orientatio n Manufactur er: Phonak Infinio 90 SphereColo r: Graphite grayEarpie ce: M1R with large vented dome Serial NumbersRig ht: [id number] eft: NA Warranty: 10/30/2027 Accessorie s: [employer] Real ear: Done with pretty good success- I would like a little more gain in the highs. Reviewed:c leaningvol ume control- he may have to figure out if any of his fingers can feel it.Did NOT pair to phone Follow up 2 weeks.Maxine ent knows to call with any major problems. Health Concerns Section Related Observation LastModified by Organization Detai ls LastModified Time None Recorded Concern Status LastModified by Organization Details LastModified Time None Recorded Payers Encounter Date Sequence Insurance Name Policy Number Policy Mcwilliams Covered Member ID Mcwilliams Member ID Guarantor Name 02/10/2025 1 [place] [employer] Zaid Becker [id number] Zaid Becker 02/10/2025 2 [place] [id number] Zaid Becker [id number] Zaid Becker
--- OUTSIDE RECORDS SUMMARY | 2025-02-15 18:08 | XMS_ITS | Data Portability ---
Author Organization [facility] Home Service Address [address] [place] [address] Assessment Encounter Date Assessment Date Assessment LastModified by Organization Details LastModified Time 01/22/2024 01/22/2024 [id number] [place] [id number] (MOLD MOVER) MDM MODERATE MUST MEET 2 OUT OF [...] living. Not available 02/10/2024 14:05:23 04/24/2024 04/24/2024 [id number] [place] [address] (MOLD MOVER) MDM MODERATE MUST MEET 2 OUT OF [...] COVERED Not available 04/24/2024 12:22:48 08/10/2024 08/10/2024 [id number] [place] [id number] (MOLD MOVER) MDM MODERATE MUST MEET 2 OUT OF [...] COVERED Not available 08/10/2024 15:16:40 12/04/2024 12/04/2024 [address] [place] [address] (MOLD MOVER) MDM MODERATE MUST MEET 2 OUT OF [...] available Not available Not available Lab HbA1c (hemoglob in A1c), blood 2024 025 [facility], [address] [place] [address], [address], 12/11/2024 12:45:10 CMP, serum or plasma 2024 025 [facility], [address] [place] [address], [address], 12/04/2024 10:09:59 HbA1c (hemoglob in A1c), blood 2024 025 [facility], [address] [place] [address], [address], 12/11/2024 12:45:10 lipid panel, blood 2023 024 [facility], [address] [place] [address], [address], 02/12/2024 11:55:17 CBC w/ auto diff 2023 024 [facility], [address] [place] [address], [address], 02/21/2024 16:03:20 CMP, serum or plasma 2023 024 [facility], [address] [place] [address], [address], 02/12/2024 11:55:17 Referral None recorded. Procedures None recorded. Surgeries None recorded. Imaging CT, abdomen + pelvis, w/ contrast - creat 0.9 gfr >60 2023 024 [facility], [address] [place], [address], 01/24/2024 08:20:34 Medication Orders naltrexon e 4.5 mg capsule 2023 024 [facility], [address] [place] [address], [id number], 08/10/2024 15:28:07 naltrexon e 1.5 mg capsule 2023 024 [id number], [address], [place], [id number], 08/10/2024 15:23:25 naltrexon e 1.5 mg capsule 2023 024 [id number], [address], [place], [id number], 08/10/2024 15:23:25 bupropion HCl SR 150 mg tablet,12 hr sustained -release 2023 024 LUISITO [id number], [address], [place], [id number], 02/12/2024 11:58:15 Patient TargetsNo targets recorded. Patient Instructions Encounter Date Encounter Id Patient Instructions Last Modified By Organization Details Last Modified Time 01/22/2024 [id number] abdominal pain: care instructions Not available 01/22/2024 09:36:45 02/12/2024 [id number] learning about mood disorders Not available 02/12/2024 11:53:59 Discussed and explained advance directives such as standard forms to the {{patient caregiv er patient and caregiver}}. Face to face discussion lasted for a duration of ___ minutes. Not available 02/10/2024 14:05:23 04/24/2024 [id number] learning about type 1 diabetes Not available 04/24/2024 12:23:38 type 1 diabetes: care instructions Not available 04/24/2024 12:23:38 abdominal pain: care instructions Not available 04/24/2024 12:23:38 12/04/2024 [id number] irritable bowel syndrome: care instructions Not available [...] Organization Details Recorded Time Hyperten sive disorder 77847634 Active 2018 Not Available [facility] 3 12:53:16 Raynaud' s disease 443960304 Active 2018 Not Available [facility] 3 12:53:16 Hypercho lesterol emia 93157083 Active 2018 Not Available [facility] 3 12:53:16 Irritabl e bowel syndrome 41738382 Active 2018 Not Available [facility] 3 12:53:15 Gastroes ophageal reflux disease 230085534 Active 2018 Not Available [facility] 3 12:53:16 Osteoart hritis 613329300 Active 2018 shoulder Not Available [facility] 3 12:53:16 Type 1 diabetes mellitus 28691679 Active 2018 Not Available [facility] 3 12:53:16 Spinal stenosis in cervical region 91177930 Completed 201803/23/2019 Sandeep Dumont, DO [address] [place] [address], [id number] [place] [address] Internal Medicine 9 16:22:56 Spinal stenosis of lumbar region 27509734 Active 2018 Not Available [facility] 3 12:53:16 Degenera tion of interver tebral disc 92204717 Active 2018 Not Available [facility] 3 12:53:16 Rhinophy ms 30094388 Active 2018 Not Available [facility] 3 12:53:16 Allergic rhinitis 96491991 Active 2018 Not Available [facility] 3 12:53:16 Mood disorder 20942300 Active 2018 affectiv e disorder Not Available [facility] 3 12:53:16 Alcohol abuse 10501738 Active 2018 Not Available [facility] 3 12:53:16 Tinnitus of right ear 3251448152 108 Active 2018 Not Available [facility] 3 12:53:16 Papillom a 502260698 Active 2021 Not Available [facility] 3 12:53:16 Trochant ann bursitis of left hip 0333997916 64363 Active 2021 Not Available [facility] 3 12:53:16 Cramp in lower limb 960443439 Active 2021 Not Available [facility] 3 12:53:16 COVID-19 422478680 Active 2021Oct 2022 Not Available [facility] 3 12:53:16 Acute bronchit is 00789316 Active 2021 Not Available [facility] 3 12:53:15 Atypical chest pain 722026154 Active 2022 Not Available [facility] 3 12:53:15 Dyspnea 415725616 Active 2022 Not Available [facility] 3 12:53:16 Post-acu te COVID-19 1522276129 Active 2022 Not Available [facility] 3 12:53:15 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 1276215738 Active 2022 Not Available [facility] 3 12:53:15 Irritabl e bowel syndrome with diarrhea 814804549 Active 2022 Not Available [facility] 3 12:53:16 Mild neurocog nitive disorder 766133866 Active 2022 Not Available [facility] 3 12:53:16 Tinnitus 35856371 Active 2022 Not Available [facility] 3 12:53:16 Tinnitus 77100080 Active 2022 Not Available [facility] 3 12:53:16 Diabetic peripher al neuropat hy 588476804 Active 2022 Not Available [facility] 3 12:53:16 Left lower quadrant pain 244081080 Active 2023 Sandeep Dumont DO [address] [place] [address], [phone], [facility] 4 09:33:43 Depressi ve disorder 55884689 Active 2023 Sandeep Dumont DO [address] [place] [address], [phone], [facility] 4 09:36:34 Problem Notes None recorded. Medical Equipment None Reported. Allergies Allergen ID Allergen Name Allergen Category Reaction Reaction Severity Criticality Documentation Date Start Date Code Code System Note Provider Name and Address Organization Details Recorded Time 2722 diclofena c Not available Not available Not available Not available 12/02/2018 3355 RxNorm Naya sadler [facility] 9 16:13:45 2725 Non-stero idal anti-infl ammatory agent (product) medicatio n Not available Not available Not available 12/03/2018 98930 005 SNOMED IBS acts up Naya sadler [facility] 9 13:50:35 7934 Substance with morphinan structure and opioid receptor agonist mechanism of action (substanc e) medicatio n itching Not available [facility] 02/12/2024 06578 9000 SNOMED Yasmin Kartik sadler [facility] 4 11:19:26 8695 lisinopri l medicatio n angioedem a Not available high 12/04/2024 52695 RxNorm Sandeep Dumont DO [address] [place], [phone], [facility] 5 09:59:04 Medications Name Sig Start Date Stop Date Status Note LastModified by Organization Details LastModified Time losartan 50 mg tablet TAKE 1 TABLET BY MOUTH EVERY DAY active Not Available Not Available No t Available amoxicillin 500 mg capsule TAKE 1 CAPSULE [...] TAKE 1 TABLET BY MOUTH EVERY DAY 2024 active Not Available Not Available Not [...] TAKE 1 TABLET BY MOUTH TWICE DAILY 2024 active Not Available Not Available Not Avai lable dicyclomine 20 mg tablet TAKE 2 TABLETS [...] THE SKIN THREE TIMES DAILY BEFORE MEALS 2024 active Not Available Not Available Not Avai lable rosuvastati n 5 mg tablet TAKE 1 TABLET BY MOUTH EVERY DAY 2024 active Not Available Not Available Not Avai lable Avastin 25 mg/mL intravenous solution active Not [...] 30 UNITS UNDER THE SKIN EVERY DAY 2024 active Not Available Not Available Not Avai lable BD Joselyn 2nd Gen Pen Needle 32 [...] Updated DateTime 4 177.8 cm 29.1 kg/m2 73823.2 5 g 92 /min 93 % 93 % 142 mm[Hg] 70 mm[Hg] Yasmin Verdugo [facility] 4 11:21:52 Date Recorded Body height Body mass index (BMI) Body weight Heart rate Oxygen saturation Oxygen saturation in Arterial blood by Pulse oximetry Systolic blood pressure Diastolic blood pressure Provider Name and Address Organization Details Last Updated DateTime 4 177.8 cm 28 kg/m2 22553.5 1 g 60 /min 95 % 95 % 118 mm[Hg] 74 mm[Hg] Lali Dillard [facility] 4 11:49:22 Date Recorded Body height Body mass index (BMI) Body weight Heart rate Oxygen saturation Oxygen saturation in Arterial blood by Pulse oximetry Systolic blood pressure Diastolic blood pressure Provider Name and Address Organization Details Last Updated DateTime 4 177.8 cm 27.5 kg/m2 72498.7 4 g 68 /min 96 % 96 % 150 mm[Hg] 80 mm[Hg] Yasmin Verdugo [facility] 4 15:00:00 Date Recorded Systolic blood pressure Diastolic blood pressure Provider Name and Address Organization Details Last Updated DateTime 08/10/2024 136 mm[Hg] 78 mm[Hg] Sandeep Dumont, DO [address] [facility], [place], [address], [facility] 08/10/2024 15:13:58 Date Recorded Body height Body mass index (BMI) Body weight Heart rate Oxygen saturation Oxygen saturation in Arterial blood by Pulse oximetry Systolic blood pressure Diastolic blood pressure Provider Name and Address Organization Details Last Updated DateTime 5 177.8 cm 27.8 kg/m2 71140.9 2 g 79 /min 98 % 98 % 170 mm[Hg] 80 mm[Hg] Yasmin Verdugo [facility] 5 09:44:50 Social History Question Answer Notes LastModified by Organizat ion Details LastModified Time Tobacco Smoking Status [facility] 09:51:02 What Was The Date Of Your Most Recent Tobacco Screening? 08/10/2024 [email or web address] Information not available 08/10/2024 Do You Or Have You Ever Used Any Other Forms Of Tobacco Or Nicotine? No [email or web address] Information not available 10/25/2023 Sex: Unknown Functional Status None recorded. Mental Status None recorded. Family History Nothing Reported. Medical History No medical history recorded. Immunizations Vaccine Type Date Status Note Provider Nam e and Address Organization Details Recorded Time COVID-19, mRNA, LNP-S, PF, 100 mcg/0.5mL dose or 50 mcg/0.25mL dose 02/03/20 21 completed Janie sadler [facility] 05/29/2021 16:46:13 Pneumococcal conjugate PCV 13 11/06/20 16 [facility]/29[facility]2021 16:46:45 COVID-19, mRNA, LNP-S, PF, 100 mcg/0.5mL dose or 50 mcg/0.25mL dose 10/24/20 21 [facility] 10/25/2021 13:53:02 Influenza, split virus, quadrivalent, preservative 08/15/20 18 completed Sandeep Dumont, DO [address] [facility], [place], [address], [facility] 08/16/2018 15:23:56 zoster recombinant 03/06/20 22 [facility] 03/07/2022 13:50:21 influenza, intradermal, quadrivalent, preservative free 07/26/20 22 completed Catie sadler [facility] 07/27/2022 09:52:42 zoster live 07/26/20 22 completed Catie sadler [facility] 07/27/2022 09:53:06 COVID-19, mRNA, LNP-S, PF, 50 mcg/0.5 mL dose 05/23/20 22 completed Jolene sadler [facility] 12/18/2022 08:13:18 COVID-19, mRNA, LNP-S, PF, 50 mcg/0.5 mL dose 08/07/20 22 completed Jolene sadler [facility] 12/18/2022 08:13:25 COVID-19 Non-US Vaccine, Product Unknown 09/04/20 23 completed Yasmin sadler [facility] 09/04/2023 14:09:04 influenza, unspecified formulation 09/04/20 23 completed Yasmin sadler [facility] 09/04/2023 14:09:28 influenza, unspecified formulation 10/16/20 24 completed Lali sadler [facility] 10/19/2024 08:03:11 SARS-COV-2 (COVID-19) vaccine, UNSPECIFIED 10/16/20 24 completed Lali sadler [facility] 10/19/2024 08:03:20 pneumococcal polysaccharide PPV23 08/24/20 15 completed Naya sadler [facility] 12/02/2018 16:29:19 zoster live 05/25/20 14 completed Naya sadler [facility] 12/02/2018 16:29:53 Td (adult) 06/11/20 14 [facility] 12/02/2018 16:30:23 Influenza, split virus, quadrivalent, preservative 10/09/20 19 completed Sandeep Dumont, [address] [place] [address], [place], [address], [facility] 10/11/2019 09:53:38 COVID-19, mRNA, LNP-S, PF, 100 mcg/0.5mL dose or 50 mcg/0.25mL dose 01/05/20 21 completed Marilyn sadler [facility] 01/27/2021 15:28:42 Past Encounters Encounter ID Performer Location Encounter Start Date Encounter Closed Date Diagnosis/Indication Diagnosis SNOMED-CT Code Diagnosis ICD10 Code Diagnosis Note [id number] February MELISSA Rosa [facility] [address] [place] [address],[place] [address] 12/03/2018 13:43:00 12/03/2018 16:15:41 Type 1 diabetes mellitus 15742208 E10.9 hasn't been in quite some time last a1c 6.9 in february, will retest states he usually sees MB, but he hasn't been here Hyperlipidemia 85729550 E78.5 on atorvatsta tin needs labs Essential hypertension 81985757 I10 on lisinopril - well controlled Gastroesop hageal reflux disease 421042181 K21.9 intermitte nt, uses omeprazole or ranitidine as needed for gerd Irritable bowel syndrome 63408377 K58.9 improves sx, but would like to increase dose for better control Osteoarthritis 071439695 M19.90 [id number] Sandeep Dumont DO [facility] [address] [facility],[place] [address] 03/02/2019 13:50:36 03/02/2019 14:31:02 Type 1 diabetes mellitus 15581379 E10.8 he continues to self treat does not get lab work (states he cant afford it) relates is not using insulin daily but his a1c 6.4!!!!! Hypertensive disorder 38 585820 I10 is stable now was very nervous Spinal ashok nosis of lumbar region 50379326 M48.061 will work up following his cspine eval Spinal ashok nosis in cervical region 59291178 M48.02 given onset of worsening symnptoms of arm radiculopa thy he needs an mri Rhinophyma 12867034 L71. 1 relates he is applying cortisone that he has left over from vet practice Alcohol abuse 03240770 F 10.10 long discussion re need to abstain as his LFTs are a problem Benign par oxysmal positional vertigo 176229473 H81.11 will refer ent Sandeep Dumont DO [facility] [address] [facility] [place] [address] 03/23/2019 15:51:32 03/24/2019 08:14:00 Tinnitus of right ear 7543772961 108 H93.11 awaiting the ENT referral has been using benadryl and sudafed(michell johnson) to clear his ears Spinal ashok nosis in cervical region 31338531 M48.02 MRI shows that he has stable hardware and no canal stenosis but he does have foraminal encroachme nt bilat Paresthesia 86805362 R20 .2 Liver func tion tests outside reference range 827850909 R94.5 [id number] Sandeep Dumont, [facility] [address] [facility],[place] [address] 06/15/2019 15:54:08 06/15/2019 16:52:06 Hypertensive disorder 17161883 I10 is stable now was very nervous Degenerati on of intervertebral disc 14048693 M51.9 will cont to treat conserv Type 1 krystal betes mellitus 60885460 E10.8 he continues to self treat does [...] implored him to get last Alcohol abuse 33478780 F 10.10 long discussion re need to abstain as his LFTs are a problem but we can never be sure relates took some old codeine for some weight Depressive disorder 5158 9007 F32.0 will try a ssri for his depression [id number] Sandeep [place], [facility] [address] [facility],[place] [address] 09/23/2019 10:43:14 09/23/2019 11:27:25 Hypertensive disorder 94481302 I10 is stable now was very nervous Type 1 krystal betes mellitus 73164330 E10.8 he continues to self treat does [...] to get last Primary er ectile dysfunction 255325413 N52.9 doing this under the guise of dr hook discussed and instructed re his questions as best that i can [place]um[place] 285394676 L71.9 wishes to try a topical will try to tx with lotion or gel Hernia of anterior abdominal wall 895646671 K43.9 reassuranc e call if any sudden worsening Sleep apnea 90436614 G47 .30 agrees to have this taken care of Hearing loss 19872631 H9 0.0 will order [id number] Sandeep Dumont [facility] [address] [facility],[place] [address] 10/23/2019 08:54:59 10/23/2019 09:19:17 Squamous cell carcinoma of upper extremity 290374639 C44.629 2 cm lesion R forearm 10 days sun exposed area Pain of le ft hip joint 9092705340 05010 M25.552 Left iliac crest pain [id number] Sandeep Dumont DO [facility] [address] [facility],[place] [address] 01/27/2021 15:15:40 01/27/2021 16:12:03 Type 1 diabetes mellitus 28423876 E10.8 a1c is 7.8 he continues to [...] well and was good Hypertensive disorder 38 292751 I10 is stable now was very nervous Hepatitis C screening 41 7320023 Z11.59 next lab ordered lab slip given Abdominal aortic aneurysm screening 956806594 Z13.6 [id number] Sandeep Dumont [facility] [address] [facility],[place] [address] 05/30/2021 13:35:15 05/30/2021 14:09:38 Hypertensive disorder 45887268 I10 is stable now Type 1 krystal betes mellitus 29117101 E10.8 a1c is 7.0 and prior was 7.8 reviewed last lab in detail relates is using insulin daily states he is checking glucose bid but when asked to see glucos says he doesnt have any results to show reccc he get a diabetic foot exam he did get an diabetic eye exam as well and was good Hypercholesterolemia 136 83517 E78.00 had stopped the statin on his own Depressive disorder 4383 9007 F32.0 not currently taking Pre-surger y evaluation 609329605 Z01.818 per the 2017 ACC (revised) cardiac risk stratifica tion he is currently considered a low risk for the proposed ENT procedure. pt understand s to hold the meloxicam but to cont his usual medication s on the day of surgery with the exception of only taking half his dose of insulin.th e night before. [id number] Sandeep Dumont DO [facility] [address] [facility],[place] [address] 12/01/2021 08:27:36 12/01/2021 13:39:52 Type 1 diabetes mellitus 37673053 E10.8 a1c is 7.0 and prior was 7.8 reviewed last lab in detail relates is using insulin daily states he is checking glucose bid but when asked to see glucos says he doesnt have any results to show reccc he get a diabetic foot exam he did get an diabetic eye exam as well and was good Hypertensive disorder 38 426229 I10 is stable now Gastroesop hageal reflux disease 138841596 K21.9 seems to be stable Alcohol abuse 91244907 F 10.10 long discussion re need to abstain as his LFTs are a problem but we can never be sure Depressive disorder 7419 9007 F32.0 not currently taking Trochanter ic bursitis of left hip 8747815019 89652 M70.62 still having issues with this ok for him to get more active as necessusin g voltaren gel [id number] Sandeep Dumont DO [facility] [address] [facility],[place] [address] 03/19/2022 10:11:39 03/19/2022 10:57:57 Hypercholesterolemia 60075465 E78.00 had stopped the statin on his own Hypertensive disorder 38 825488 I10 is stable now Type 1 krystal betes mellitus 14733317 E10.8 a1c is 7.3 and prior was 6.7 reviewed last lab in detail relates is using insulin daily lantus at 20 and had been doing okalso uses 5-10u of novolog with meals reccc he get a diabetic foot exam he did get an diabetic eye exam as well and was good Papilloma 250280133 D36. 9 will require yet another surgery for this in post nasopharyn xwe will have him cont with spec Trochanter ic bursitis of left hip 1970967075 54900 M70.62 still having ongoing pain and now affecting his wall\cathy and also he can no longer stand for lengths of time because of it [id number] Sandeep Dumont DO [facility] [address] [facility],[place] [address] [facility] [address] 07/27/2022 09:40:12 07/27/2022 10:43:08 Type 1 diabetes mellitus 05828660 E10.8 a1c is now 6.7 and is doing good 7.3 and prior was 6.7 reviewed last lab in detail relates is using insulin daily lantus at 20 and had been doing okalso uses 5-10u of novolog with meals reccc he get a diabetic foot exam he did get an diabetic eye exam as well and was good Cramp in lower limb 4499 94032 R25.2 pt will try the magnesium 400 Hypertensive disorder 38 376688 I10 is stable now and good readings at home Degenerati on of intervertebral disc 74916800 M51.9 will cont to treat conserv [id number] Sandeep Dumont DO [facility] [address] [facility],[place] [address] 10/15/2022 14:24:52 10/15/2022 15:07:12 Hypercholesterolemia 12044626 E78.00 had stopped the statin on his own Hypertensive disorder 38 118990 I10 is stable now and good readings at home glucose readings look very good and he is actually feeling well Type 1 krystal betes mellitus 45643330 E10.8 a1c is now 6.7 and is doing good 7.3 and prior was 6.7 reviewed last lab in detail relates is using insulin daily lantus at 20 and had been doing okalso uses 5-10u of novolog with meals reccc he get a diabetic foot exam he did get an diabetic eye exam as well and was good Allergic rhinitis 606231 04 J30.9 sees juan in for the papilloma [id number] RAPHAEL SAUCEDO [facility] [address] [facility],[place] [address] 12/05/2022 11:28:23 12/05/2022 12:21:46 Hypertensive disorder 01713697 I10 will trial patient on clonidine QDfu in a week to recheck will also update MB Irritable bowel syndrome 50555854 K58.9 will need refills [id number] RAPHAEL SAUCEDO [facility] [address] [facility],[place] [address] 12/18/2022 11:11:01 12/18/2022 16:11:12 Hypertensive disorder 74714838 I10 will continue the clonidine as the pt doesn't want to change medication Type 1 krystal betes mellitus 59927846 E10.8 the patient reports that he is having fluctuatio ns every other week or socan go up to 10 units [place] [id number] Sandeep Dumont DO [facility] [address] [facility],[place] [address] 01/16/2023 11:31:20 01/16/2023 14:09:08 Type 1 diabetes mellitus 79363171 E10.8 a1c is up to 7.4 was [...] good (he has not) Hypertensive disorder 38 960106 I10 is stable now and good readings at home glucose readings look very good and he is actually feeling well Depressive disorder 3548 9007 F32.0 not currently taking Advance care planning 71 6470020 Z71.89 utd Screening for malignant neoplasm of colon 238958972 Z12.11 he is already on a schedule for his colonoscop y Irritable bowel syndrome 27785289 K58.9 using the dicyclomin e with good results [id number] [facility] [address] [facility],[place] [address] 02/20/2023 14:23:29 02/20/2023 16:05:07 Atypical chest pain 276652840 R07.89 immediatel y start ASA 325 mg Dyspnea 839136117 R06.02 ddx includes PE, angina, ACStold to report to the ER immediatel y if his symptoms worsendecl ined ER today Essential hypertension 47696183 I10 been ranging high for the past month [id number] Sandeep Dumont DO [facility] [address] [facility] [place] [address] 03/20/2023 11:29:07 03/20/2023 14:03:18 Chronic phme-TXLAX-00 syndrome 6082002253 U09.9 althoug he is somewhat improvedre lates that overall doing okand feeling betterusin g th e guaifen daily not twice ad daynow headaches are gone as well Essential hypertension 78017077 I10 home bps are notably improved now and doing good Type 1 krystal betes mellitus 43681451 E10.8 a1c is at 7.2 was at7.4 [...] well and was good (he has not) [id number] Sandeep Dumont DO [facility] Internal Medicine [address] [facility] [place] [address] 07/24/2023 10:43:43 07/24/2023 11:53:06 Essential hypertension 90504115 I10 home bps are notably improved now and doing good Gastroesop hageal reflux disease 730374003 K21.9 seems to be stable Hypertensive disorder 38 812352 I10 is stable now and good readings at home glucose readings look very good and he is actually feeling well Type 1 krystal betes mellitus 54638245 E10.8 a1c is at 6.4 now 7.2 [...] good (he has not) Post-acute COVID-19 1119 130948 U09.9 is bothered a lot by the numerous sx for this Irritable bowel syndrome with diarrhea 040165764 K58.0 still taking his dicyclomin e again reiterated the amount of Mg+ he is taking for leg cramps is too much Mild neuro cognitive disorder 873547990 G31.84 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 pt is struggling with this Tinnitus 41478590 H93.19 discussion this has been ongoing and is seeing an ENT next week Diabetic p eripheral neuropathy 553494732 E11.40 actually seems to be better and is more steady on his feet noted correspond ing improvemen t with improved glucose readings [id number] DO [facility] P[facility] Internal [facility] [address] [facility],[employer] [place] [address] 10/25/2023 11:05:20 10/25/2023 13:37:26 Essential hypertension 25493484 I10 home bps are notably improved now and doing good Hypercholesterolemia 136 36260 E78.00 had stopped the statin on his own Hypertensive disorder 38 568225 I10 is stable now and good readings at home glucose readings look very good and he is actually feeling well Type 1 krystal betes mellitus 13869280 E10.8 a1c is at 6.4 in jul didn get latest 7.2 [...] has not) Irritable bowel syndrome with diarrhea 203301037 K58.0 still taking his dicyclomin e but only rarely [id number] DO Jal[facility] Piedra Internal [facility] [address] [facility],[employer] [address] 01/22/2024 08:01:29 01/22/2024 09:49:46 Left lower quadrant pain 897392260 R10.32 Hypertensive disorder 38 862289 I10 is stable now and good readings at home glucose readings look very good and he is actually feeling well Type 1 krystal betes mellitus 72641374 E10.8 a1c is at 6.4 in jul [...] currently taking any med per his decision [id number] Sandeep Dumont [facility] Internal Medicine [address] [facility], [place] [address] 02/12/2024 11:14:26 02/12/2024 12:15:06 Adult health examination 834865811 Z00.01 Screening for cardiovascular system disease 505161783 Z13.6 Screening for malignant neoplasm of colon 063662739 Z12.11 he is already on a schedule for his colonoscop y 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 9714434352 U09.9 he is still struggling with the mentation and cognitive issueaccor ding to the study in the brain behavioral immun health aug 2022 will try the naltrexone 1mg daily Mood disorder 12027838 F 39 will begin wellbutrin 150 bid [id number] Sandeep Dumont DO [facility] Internal [facility] [address] [facility],[place] [address] 04/24/2024 11:34:16 04/24/2024 12:38:31 Depression screening 517465144 Z13.31 SCREENING NEGATIVE Left lower quadrant pain 975840313 R10.32 this is now gone and he feels markedly better Type 1 krystal betes mellitus 89469418 E10.8 a1c is at 6.4 in jul latest 7.2 was at7.4 was down to [...] (he has not) 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 1431842926 U09.9 he is still struggling with the mentation and cognitive issueaccor tracy to the study in the brain behavioral immun health aug brain fog has cleared taking clonidine guaefensin e and lisinopril for bp will try the naltrexone 1mg daily [id number] Sandeep Dumont DO [facility] [address] [facility],[place] [address] 08/10/2024 14:45:41 08/11/2024 09:29:53 Hypercholesterolemia 71602435 E78.00 had stopped the statin on his own Hypertensive disorder 38 461267 I10 is stable now and good readings at home glucose readings look very good and he is actually feeling well Type 1 krystal betes mellitus 62348287 E10.8 a1c is at7.2 was 6.8 in [...] (he has not) 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 8257207338 U09.9 he is still struggling with the mentation and cognitive issueaccor tracy to the study in the brain behavioral immun health aug brain fog has cleared taking clonidine guaefensin e and lisinopril for bp will try the naltrexone 1mg daily [id number] Sandeep Dumont DO [facility] Internal Medicine [address] [facility],[place] [address] 12/04/2024 09:32:43 12/04/2024 10:13:34 Hypertensive disorder 85629847 I10 bp is elevated and not controlled Type 1 krystal betes mellitus 51292332 E10.8 a1c is pending sugars checked at [...] good (he has not) Irritable bowel syndrome 02643562 K58.9 using the dicyclomin e with good results 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 4027480799 U09.9 he is still struggling with the [...] 1 [place] Zaid Wilson Eugenio [id number] Zaid Francoley 01/22/2024 2 [place] [id number] Zaid Becker [id number] Zaid Becker 02/12/2024 1 [place] Zaid Katie Eugenio [id number] Zaid Cheatham 02/12/2024 2 [place] [id number] Zaid Becker [id number] Zaid Becker 04/24/2024 1 [place] Zaid Katie Eugenio [id number] Zaid Becker 04/24/2024 2 [place] [id number] Zaid Becker [id number] Zaid Becker 08/10/2024 1 [place] Zaid Becker [id number] Zaid Becker 08/10/2024 2 [place] [id number] Zaid Becker [id number] Zaid Becker 12/04/2024 1 [place] [facility] Zaid Becker [id number] Zaid Becker 12/04/2024 2 [place] [id number] Zaid Becker [id number] Zaid Becker Notes Date Note Type [...] last done:next due soonFOOT EXAM- last done:next due:ronAzalea Dumont, DO [address] [place] [address], [phone], [facility] 01/22/2024 09:37:27 4 text/htm l [...] lighting in the home Sandeep Dumont DO [address] [place] [address], [address], [facility] Internal Medicine 02/12/2024 11:55:39 4 text/htm l here for rechk and is doing better wellbutrin is working better and feels gooddoing weel more active and eating betterrelates that he Sandeep Dumont DO [address] [place] [address], [address], [facility] Medicine 04/24/2024 12:27:25 4 text/htm [...] get worse and felt he had a movxf7n is 7.2he is feeling better overallmore active and physical Sandeep Dumont DO [address] [place] [address], [address], [facility] 08/10/2024 20:07:53 5 text/htm [...] elevated dm is up Sandeep Dumont DO [address] [place] [address], [phone], [facility] Medicine 12/04/2024 10:10:05
--- OUTSIDE RECORDS SUMMARY | 2025-02-15 18:08 | XMS_ITS | Data Portability ---
Author Organization [place] [facility], Allergy Address [address] [address] Care Team Providers Care Minister Of Religion Name Role Phone DEVORAH DUMONT Primary Care Provider [phone] Assessment Encounter Date Assessment Date Assessment LastModified [...] biopsy, polypectomy or debridement (SURG) 2024 025 [email or web address] [id number] Not available 11:58:21 excision, lesion of palate, uvula (SURG) 2024 025 [email or web address] 9 Not available 11:58:36 Imaging None recorded. Medication Orders None recorded. Patient TargetsNo targets recorded. Patient InstructionsNo instructions recorded. Reason for Referral None Reported. Results Created Date Observation Date Name Description Value Unit Range Abnormal Flag Note LastModifiedBy Organization Detail LastModifiedTime 09/07/20 24 audio gram No observ ation record ed. [email or web address] Not Available 08/12 15:13:34 11/18/19 25 10/22/2024 clini jackie photo * No observ ation record ed. [email or web address] Not Available 06/2025 13:03:36 Result Notes None recorded. 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; Note: Changed from D37.09 to D37.05 (04/26/20 20 8:25 AM) , Date Diagnose d: 04/18/2020 9:09 AM (D37.09) Not Available [facility] 4 02:58:33 General unsteadi ness 994646914 Active 2021 Unsteadi ness on feet; Note: Date Diagnose d: 2 12:39 PM (R26.81) Not Available [facility] 4 02:58:33 Bilatera l tinnitus 72832993663 02 Active 2021 Tinnitus , bilatera l; Note: Date Diagnose d: 2 11:44 AM (H93.13) Not Available [facility] 4 02:58:31 History of SARS-CoV -2 41527992437 5851541 Active 2022 Personal history of COVID-19 ; Note: Date Diagnose d: 3 11:53 AM (Z86.16) Not Available [facility] 4 02:58:33 Deviated nasal septum 080998766 Active 2019 Deviated nasal septum; Note: Date Diagnose d: 0 2:00 PM (J34.2) Not Available [facility] 4 02:58:31 Human papillom a virus infectio n 385237474 Active 2019 Papillom avirus as the cause of diseases classifi ed elsewher e; Note: Date Diagnose d: 0 9:00 AM (B97.7) Not Available [facility] 4 02:58:32 Otorrhea of right ear 62960465481 26523 Completed 202006/12/2024 Otorrhea , right ear; Note: Date Diagnose d: 10/30/20 21 12:06 PM (H92.11) Not Available [facility] 4 02:58:31 Sensorin eural hearing loss in left ear 78624957824 109 Active 2019 Sensorin eural hearing loss, unilater al, left ear, with restrict ed hearing on the contrala teral side; Note: Date Diagnose d: 0 2:48 PM (H90.A22 ) Not Available [facility] 4 02:58:34 Polyneur opathy 16837504 Active 2021 Neuropat hy NOS; Note: Date Diagnose d: 2 12:39 PM (G62.9) Not Available [facility] 4 02:58:30 Abnormal auditory percepti on 01367869 Active 2019 Other abnormal auditory percepti ons, right ear; Note: Date Diagnose d: 0 1:28 PM (H93.291 ) Not Available [facility] 4 02:58:32 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 2019 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; Note: Date Diagnose d: 0 1:47 PM (D10.5) Not Available [facility] 4 02:58:33 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 955775408 Active 2021 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; Note: Changed from E10.69 to E10.42 (05/03/20 23 11:53 AM) , Date Diagnose d: 2 12:10 PM (E10.69) Not Available [facility] 4 02:58:32 Ataxic gait 72039496 Active 2019 Ataxic gait; Note: Date Diagnose d: 0 1:47 PM (R26.0) Not Available [facility] 4 02:58:30 Allergic rhinitis 31022878 Active 2020 Allergic rhinitis : Due to [...] ; Start Date : 09/06/20 Not Available [facility] 4 02:58:31 Obstruct amie sleep apnea syndrome 27247241 Active 2022 Obstruct amie sleep apnea (adult) (pediatr ic); Note: Date Diagnose d: 3 11:53 AM (G47.33) Not Available [facility] 4 02:58:32 Dizzines s and giddines s 064598741 Active 2019 Dizzines s and giddines s; Note: Date Diagnose d: 10/21/20 10:48 AM (R42) Not Available [facility] 4 02:58:34 Mixed conducti ve and sensorin eural hearing loss of right ear 98619130312 105 Active 2019 Mixed conducti ve and sensorin eural hearing loss, unilater al, right ear with restrict ed hearing on the contrala teral side; Note: Date Diagnose d: 0 2:48 PM (H90.A31 ) Not Available [facility] 4 02:58:30 Disorder of right Eustachi an tube 64782257633 87529 Active 2019 Other specifie d disorder s of Eustachi an tube, right ear; Note: Date Diagnose d: 0 1:47 PM (H69.81) Not Available [facility] 4 02:58:32 Bilatera l disorder of Eustachi an tubes 42737735916 93216 Active 2023 ZHAO GARIBAY MD [address] [place] [address],[facility] [address], [facility] [place], [address] , [place] - [facility] 4 11:31:54 Benign neoplasm of nose, middle ear and accessor y sinuses 271931417 Active 2023 ZHAO GARIBAY MD [address] [facility],[place] [address], [place], [address] , [place] - [facility] 4 11:31:59 Sensorin eural hearing loss of bilatera l ears 954594577 Active 2023 ZHAO GARIBAY MD [address] [facility],[address], [place], [address] , [place] - [facility] 4 12:19:53 Recurren t respirat ory papillom atosis 044240594 Active 2024 ZHAO GARIBAY MD [address] [facility], [place], [address] , [place] - [facility] 5 11:13:30 Problem Notes None recorded. Procedures Surgical History Date Name Laterality Status Provider Name and Address Organization Details Recorded Time 11/26/19 25 Fiberoptic Laryngoscopy (Comprehensive) completed ZHAO SOTO MD [address] [facility],[address], [address], [facility] - [facility] 11/26/2024 11:12:58 10/22/20 24 EXCISION OR DESTRUCTION OF LESION OF PHARYNX (SURG) completed John Hollingsworth [place] - [facility] 10/23/2024 17:03:10 09/07/20 24 Comp Audio (44852) completed SABRINA TIAN [address] [facility],[address], [address], [facility] - [facility] 09/07/2024 12:02:40 09/07/20 24 Fiberoptic Laryngoscopy (Comprehensive) completed ZHAO SOTO MD [address] [facility],[place] [address] [place] [address], [address], [place] - [facility] 09/07/2024 12:22:41 myringotomy and insertion of tympanic ventilation tube completed ZHAO SOTO MD [address] [place] [address], [address], [facility] - [facility] 09/06/2024 09:52:10 Imaging Results Imaging Date Name Status LastModified by Organiz ation Details LastModified Time 09/07/2024 audiogram completed [email or web address] Information n ot available 09/07/2024 15:13:34 10/22/2024 clinical photo* completed [email or web address] Information not available 11/18/2024 13:03:36 Procedure Notes None recorded. Medical Equipment None Reported. Allergies Allergen ID Allergen Name Allergen Category Reaction Reaction Severity Criticality Documentation Date Start Date Code Code System Note Provider Name and Address Organization Details Recorded Time 307182 Non-stero idal anti-infl ammatory agent (product) medicatio n other Not available Not available 03/24/2024 58371 005 SNOMED React ion: unkno wn, unspe cifie d;; Not Available [facility] 4 01:23:16 474594 Substance with morphinan structure and opioid receptor agonist mechanism of action (substanc e) medicatio n other Not available Not available 03/24/2024 36455 9000 SNOMED React ion: unkno wn, unspe cifie d;; Not Available [facility] 4 01:23:17 Medications Name Sig Start Date Stop Date Status Note LastModified by Organization Details LastModified Time losartan 50 mg tablet TAKE 1 TABLET BY MOUTH EVERY DAY active Not Available Not Available No t Available Augmentin 875 mg-125 mg tablet by mouth 04/19 completed Medicati on ID: [id number] D uration Value: 10 Prescri bed By Name: Zhao briones M.D. Bra nd Name: Augmenti n Send Method: E-Prescr [...] 5 drop 09/07 completed Medicati on ID: [id number] D uration Value: 5 Prescri bed By Name: Cha Mcfarland nd Name: ofloxaci n Send Method: E-Prescr ibed Sub s Allowed: subs OK Speci al Instruct ion: 5 drops into RIGHT ear twice daily for 5 days Med icationG enericNa me: ofloxaci n Not Available Not Available Not Available citalopra m 10 mg tablet 10/21 completed Medicati on ID: [id number] D uration Value: 30 Brand Name: citalopr [...] eye drops 05/04 completed Medicati on ID: [id number] D uration Value: 5 Prescri bed By Name: Cha Mcfarland nd Name: Ciloxan Send Method: E-Prescr ibed Sub s Allowed: subs OK Speci al Instruct ion: Instill 4 drops twice a day into the affected ear Medi cationGe nericNam e: Ciloxan Not Available Not Available Not Available ofloxacin 0.3 % ear drops 4 drop into both ears 2019 active Medicati on ID: [id number] D uration Value: 3 Prescri bed By [...] ous solution 2019 active Medicati on ID: [id number] D uration Value: 28 Brand Name: Humalog U-100 Insulin Send Method: E-Prescr ibed Sub s Allowed: subs OK Medic ationGen ericName : Humalog U-100 Insulin Not Available Not Available Not Available meclizine 25 mg tablet 09/06 completed Medicati on ID: [id number] D uration Value: 10 Brand Name: meclizin e Send Method: E-Prescr ibed Sub s Allowed: subs OK Speci al Instruct ion: TAKE 1 TABLET BY MOUTH THREE TIMES A DAY IF NEEDED FOR 10 DAYS Med icationG enericNa me: meclizin e Not Available Not Available Not Available Cipro 500 mg tablet 1 tablet by mouth 05/29 completed Medicati on ID: [id number] D uration Value: 10 Prescri bed By [...] single dose 10/30 completed Medicati on ID: [id number] D uration Value: 1 Brand Name: Gardasil 9 (PF) Sen d Method: E-Prescr ibed Sub s Allowed: subs OK Speci al Instruct ion: bring to appointm ent [facility] cationGe nericNam e: Gardasil 9 (PF) Not Available Not Available Not Available Gardasil 9 (PF) 0.5 mL intramusc ular suspensio n Inject 1 ml intramus cularly as directed 11/03 completed Medicati on ID: [id number] D uration Value: 1 Brand Name: Gardasil [...] SNOMED-CT Code Diagnosis ICD10 Code Diagnosis Note [id number] ZHAO GARIBAY MD [facility] [address] [address] 09/07/2024 11:04:31 09/07/2024 12:10:33 Deviated nasal septum 502354205 J34.2 Bilateral disorder of Eustachian tubes 7611909748 626546 H69.93 Benign edwar plasm of nose, middle ear and accessory sinuses 842638360 D14.0 Sensorineu ral hearing loss of bilateral ears 165417928 H90.3 Bilateral sensorineu ral hearing loss with slight conductive component in the right ear. There is no evidence of any middle ear fluid. Therefore, consider amplificat ion [id number] SABRINA TIAN [facility] [address] [place] [address] 09/07/2024 12:01:06 09/07/2024 12:57:44 Mixed conductive and sensorineural hearing loss of right ear 6231452125 9105 H90.A31 Sensorineu ral hearing loss in left ear 6127124046 9109 H90.A22 Audiologic al evaluation results: Right [...] Cou ld not maintain a hermetic seal*}} [id number] SABRINA TIAN [place] 100 [facility],Gandhi ite 100 [facility] [place] [address] 09/29/2024 09:58:25 09/30/2024 07:18:39 Mixed conductive and sensorineural hearing loss of right ear 0637946998 9105 H90.A31 Patient came with: selfLives alone with kane lab Veda.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 (shoulder injury)Alberto barbour in [facility]. Demos used: Infinio 90 Sphere Patient motivation : He is motivated to to hear betting in his right ear. Purchased? yes Ordered:Ph onak Infinio 90 [id number] right- large vented dome used today. CARROLL scheduled for 10/13 [id number] SABRINA TIAN [place] 100 [facility],[place] ite 100 [place] [address] 10/13/2024 12:59:14 10/14/2024 07:55:14 Mixed conductive and sensorineural hearing loss of right ear 2949256439 9105 H90.A31 Hearing Aid Orientatio n Manufactur er: Phonak Infinio 90 SphereColo r: Graphite grayEarpie ce: M1R with large vented dome Serial NumbersRig ht: [id number] eft: NA Warranty: 10/30/2027 Accessorie s: ChargerGO Real ear: Done with pretty good success- I would like a little more gain in the highs. Reviewed:elva quintanaingvol ume control- he may have to figure out if any of his fingers can feel it.Did NOT pair to phone Follow up 2 weeks.Maxine ent knows to call with any major problems. 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 Deviated nasal septum 12 9824685 J34.2 [id number] SABRINA TIAN [place] 100 [facility] 100 [facility] [place] [address] 02/10/2025 12:59:55 02/13/2025 14:04:37 Mixed conductive and sensorineural hearing loss of right ear 5385678295 9105 H90.A31 Hearing Aid Orientatio n Manufactur er: Phonak Infinio 90 SphereColo r: Graphite grayEarpie ce: M1R with large vented dome Serial NumbersRig ht: [id number] eft: NA Warranty: 10/30/2027 Accessorie s: ChargerGO Real ear: Done with pretty good success- I would like a little more gain in the highs. Reviewed:elva quintanaingvol ume control- he may have to figure [...] Member ID Mcwilliams Member ID Guarantor Name 09/29/2024 1 [place] Zaid Becker [id number] Zaid Becker 09/29/2024 2 [place] [id number] Zaid Francoley [id number] Zaid Becker 10/13/2024 1 [place] Zaid Becker [id number] Zaid Becker 10/13/2024 2 [place] [id number] Zaid Becker [id number] Zaid Becker 10/27/2024 1 [place] Zaid Becker [id number] Zaid Becker 10/27/2024 2 [place] [id number] Zaid Francoley [id number] Zaid Becker 11/26/2024 1 [place] Zaid Becker [id number] Zaid Becker 11/26/2024 2 [place] [id number] Zaid Francoley [id number] Zaid Becker 02/10/2025 1 [place] Zaid Becker [id number] Zaid Becker 02/10/2025 2 [place] [id number] Zaid Becker [id number] Zaid Becker Notes Date Note Type Note Provider Name and Address Organization Details Recorded Time 11/26/2024 text/html Recurrent papill helena nasal surface soft palateFeels ears are stable.Still having issues with HTNperipheral neuropathy ZHAO SOTO MD [address] [place] [address], [address], [facility] - [facility] 11/26/2024 11:16:15
== END 2025-02-15 15:19 | disposition home or self-care (01) ==
LOC: HO.MANLDS 15:18
PROVIDERS: Visit Provider Internal Medicine
DX: Z13.89 Encounter for screening for other disorder (principal)
CPT/HCPCS: 36415; 83036

== ENCOUNTER 2025-06-01 11:00 | Outpatient (REF) | payer MEDICARE, SELFPAY ==
--- OUTSIDE RECORDS SUMMARY | 2025-06-01 12:18 | XMS_ITS | Data Portability ---
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 Not available 05/31/2025 11:06:53 Plan of Treatment Reminders Order Date Submit Date Provider Last Modified By Organization Details Last Modified Time Details Appointments None recorded. Lab hemoglobin A1c, QN, blood 2024 025 [facility], [address] [place] [address], [address], 5 11:18:52 PSA, serum or plasma 2024 025 [facility], [address] [place] [address], [address], 5 11:18:52 lipid panel, blood 2024 025 [facility], [address] [place] [address], [address], 5 11:18:52 hemoglobin , gastrointe stinal, stool 2024 025 [facility], [address] [place] [address], [address], 5 11:18:52 CBC w/ auto diff 2024 025 [facility], [address] [place] [address], [address], 5 11:18:52 CMP, serum or plasma 2024 025 [facility], [address] [place] [address], [address], 5 11:18:52 HbA1c (hemoglobi n A1c), blood 2024 025 [facility], [address] [place] [address], [address], 5 12:22:51 CMP, serum or plasma 2024 025 [facility], [address] [place] [address], [address], 5 12:22:51 CBC w/ diff 2024 025 [facility], [address] [place] [address], [address], 5 12:22:50 PSA, serum or plasma 2024 025 [facility], [address] [place] [address], [address], 5 12:22:50 lipid panel, blood 2024 025 [facility], [address] [place] [address], [address], 5 12:22:50 HbA1c (hemoglobi n A1c), blood 2024 025 [facility], [address] [place] [address], [address], 5 12:45:10 CMP, serum or plasma 2024 025 [facility], [address] [place] [address], [address], 5 10:09:59 HbA1c (hemoglobi n A1c), blood 2024 025 [facility], [address] [place] [address], [address], 5 12:45:10 Referral None recorded. Procedures None recorded. Surgeries None recorded. Imaging None recorded. Medication Orders naltrexone 4.5 mg capsule 2023 024 [facility], [address] [place] [address], [id number], 4 15:28:07 naltrexone 1.5 mg capsule [address] [id number], [address] [place], [place], [id number], 4 15:23:25 Patient TargetsNo targets recorded. Patient Instructions Encounter Date Encounter Id Patient Instructions Last Modified By Organization Details Last Modified Time 04/24/2024 [id number] learning about type 1 diabetes Not available 04/24/2024 12:23:38 type 1 diabetes: care instructions Not available 04/24/2024 12:23:38 abdominal pain: care instructions Not available 04/24/2024 12:23:38 12/04/2024 [id number] irritable bowel syndrome: care instructions Not available 12/04/2024 10:05:33 learning about type 1 diabetes Not available 12/04/2024 10:05:33 type 1 diabetes: care instructions Not available 12/04/2024 10:05:33 05/31/2025 [id number] advance care planning: care instructions Not available 05/31/2025 11:08:44 Discussed and explained advance directives such as standard forms to the patient. Face to face discussion lasted for a duration of __30_ minutes. Not available 05/31/2025 11:09:31 Reason for Referral None Reported. Results Created Date Observation Date Name Description Value Unit Range Abnormal Flag Note LastModifiedBy Organization Detail LastModifiedTime Result Notes None recorded. Problems Name Problem SNOMED Code Status Onset Date Resolution Date Notes Provider Name and Address Organization Details Recorded Time Hyperten sive disorder 95537829 Active 2018 Not Available [facility] 3 12:53:16 Raynaud' s disease 202814308 Active 2018 Not Available [facility] 3 12:53:16 Hypercho lesterol emia 97880312 Active 2018 Not Available [facility] 3 12:53:16 Irritabl e bowel syndrome 55705301 Active 2018 Not Available [facility] 3 12:53:15 Gastroes ophageal reflux disease 460511167 Active 2018 Not Available [facility] 3 12:53:16 Osteoart hritis 579018686 Active 2018 shoulder Not Available [facility] 3 12:53:16 Type 1 diabetes mellitus 44860689 Active 2018 Not Available [facility] 3 12:53:16 Spinal stenosis in cervical region 05028317 Completed 201803/23/2019 Sandeep Preston, DO [address] [place], [address], [facility] 9 16:22:56 Spinal stenosis of lumbar region 46595345 Active 2018 Not Available [facility] 3 12:53:16 Degenera tion of interver tebral disc 44858123 Active 2018 Not Available [facility] 3 12:53:16 Rhinophy id 14942631 Active 2018 Not Available [facility] 3 12:53:16 Allergic rhinitis 59475581 Active 2018 Not Available [facility] 3 12:53:16 Mood disorder 68490712 Active 2018 affectiv e disorder Not Available [facility] 3 12:53:16 Harmful pattern of use of alcohol 46859574 Active 2018 Not Available [facility] 3 12:53:16 Tinnitus of right ear 0536648626 108 Active 2018 Not Available [facility] 3 12:53:16 Papillom a 892886078 Active 2021 Not Available [facility] 3 12:53:16 Trochant ann bursitis of left hip 7785441460 09369 Active 2021 Not Available [facility] 3 12:53:16 Cramp in lower limb 907912953 Active 2021 Not Available [facility] 3 12:53:16 COVID-19 293454591 Active 2021Oct 2022 Not Available [facility] 3 12:53:16 Acute bronchit is 35722601 Active 2021 Not Available [facility] 3 12:53:15 Atypical chest pain 643463251 Active 2022 Not Available [facility] 3 12:53:15 Dyspnea 597735137 Active 2022 Not Available [facility] 3 12:53:16 Post-acu te COVID-19 0984570286 Active 2022 Not Available [facility] 3 12:53:15 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 9566029757 Active 2022 Not Available [facility] 3 12:53:15 Irritabl e bowel syndrome with diarrhea 418258456 Active 2022 Not Available [facility] 3 12:53:16 Mild neurocog nitive disorder 792545152 Active 2022 Not Available [facility] 3 12:53:16 Tinnitus 30552759 Active 2022 Not Available [facility] 3 12:53:16 Tinnitus 15964978 Active 2022 Not Available [facility] 3 12:53:16 Diabetic peripher al neuropat hy 881864884 Active 2022 Not Available [facility] 3 12:53:16 Left lower quadrant pain 930661966 Active 2023 Sandeep Preston DO [address] [place] [address], [address], [facility] 4 09:33:43 Depressi ve disorder 98408836 Active 2023 Sandeep Preston DO [address] [place] [address], [address], [facility] 4 09:36:34 Problem Notes None recorded. Medical Equipment None Reported. Allergies Allergen ID Allergen Name Allergen Category Reaction Reaction Severity Criticality Documentation Date Start Date Code Code System Note Provider Name and Address Organization Details Recorded Time 2722 diclofena c Not available Not available Not available Not available 12/02/2018 3355 [facility] 9 16:13:45 162 Non-stero idal anti-infl ammatory agent (product) medicatio n Not available Not available Not available 12/03/2018 44220 005 SNOMED IBS acts up Naya Moreno viktoriya [facility] 9 13:50:35 7934 Substance with morphinan structure and opioid receptor agonist mechanism of action (substanc e) medicatio n itching Not available [facility] 02/12/2024 83064 9000 SNOMED Yasmin Kartik viktoriya [facility] 4 11:19:26 8695 lisinopri l medicatio n angioedem a Not available [facility] 12/04/2024 19457 RxNorm Sandeep Preston, DO [address] [place], [address], [facility] 5 09:59:04 Medications Name Sig [...] Not Available Not Available No t Available fluticasone 250 mcg-salmete rol 50 mcg/dose blistr [...] day by oral route for 30 days. 05/31 completed Not Available Not Available Not Available ofloxacin 0.3 % eye drops INSTILL 5 [...] 2 TABLETS BY MOUTH THREE TIMES DAILY 05/31 completed Not Available Not Available Not Available Humalog U-100 Insulin 100 unit/mL subcutaneou [...] U-100 Insulin aspart 100 unit/mL (3 mL) [facility] ADMINISTE R 5 UNITS UNDER THE SKIN [...] 10 ML BY MOUTH THREE TIMES DAILY 05/31 completed Not Available Not Available Not Available omeprazole Take two tablets once a day prn 05/30 completed Not Available Not Available Not Available Ranitidine Take one tablet at night prn 03/02 completed Not Available Not Available Not Available Lantus Solostar U-100 Insulin 100 unit/mL (3 mL) [facility] pen 05/30 completed Not Available Not Available Not Available Humalog KwikPen (U-100) Insulin 100 unit/mL [facility] s 05/30 completed Not Available Not Available [...] Not Available Not Available No t Available Trinh Max U-300 SoloStar 300 unit/mL (3 mL) [...] in Arterial blood by Pulse oximetry Systolic And Diastolic Provider Name and Address Organization Details Last Updated DateTime 5 177.8 cm 27.8 kg/m2 54029.9 2 g 79 /min 98 % 98 % 170/80 mm[Hg] Yasmin Elias [facility] 5 09:44:50 Date Recorded Body height Body mass index (BMI) Body weight Oxygen saturation Oxygen saturation in Arterial blood by Pulse oximetry Heart rate Systolic And Diastolic Provider Name and Address Organization Details Last Updated DateTime 5 177.8 cm 27.8 kg/m2 03315.9 2 g 97 % 97 % 97 /min 140/80 mm[Hg] Yasmin Elias [facility] 5 11:56:16 Date Recorded Body height Body mass index (BMI) Body weight Heart rate Oxygen saturation Oxygen saturation in Arterial blood by Pulse oximetry Systolic And Diastolic Provider Name and Address Organization Details Last Updated DateTime 4 177.8 cm 28 kg/m2 20809.5 1 g 60 /min 95 % 95 % 118/74 mm[Hg] aLli Elias [facility] 4 11:49:22 Date Recorded Body height Body mass index (BMI) Body weight Oxygen saturation Oxygen saturation in Arterial blood by Pulse oximetry Heart rate Systolic And Diastolic Provider Name and Address Organization Details Last Updated DateTime 5 177.8 cm 26.8 kg/m2 54850.7 7 g 98 % 98 % 70 /min 126/72 mm[Hg] Ana Attila [facility] 5 10:46:40 Date Recorded Systolic And Diastolic Provider Name and Address Organization Details Last Updated DateTime 08/10/2024 136/78 mm[Hg] Janet Piedra O [address] [place], [address], [facility] 08/10/2024 15:13:58 Date Recorded Body height Body mass index (BMI) Body weight Heart rate Oxygen saturation Oxygen saturation in Arterial blood by Pulse oximetry Systolic And Diastolic Provider Name and Address Organization Details Last Updated DateTime 4 177.8 cm 27.5 kg/m2 36416.7 4 g 68 /min 96 % 96 % 150/80 mm[Hg] Yasmineugenio Verdugo [facility] 4 15:00:00 Social History Question Answer Notes LastModified by Organizat ion Details LastModified Time Tobacco Smoking Status Never Smoker Catie sadler [facility] 07/27/2022 09:51:02 What Was The Date Of Your Most Recent Tobacco Screening? 05/31/2025 [email or web address] Information not available 05/31/2025 Sex: Unknown Functional Status Question Answer Note LastModified by Organization D etails LastModified Time Do you or have you ever used any other forms of tobacco or nicotine? No [email or web address] Information not available 10/25/2023 Mental Status None recorded. Family History Nothing Reported. Medical History No medical history recorded. Immunizations Vaccine Type Date Status Note Provider Nam e and Address Organization Details Recorded Time COVID-19, mRNA, LNP-S, PF, 100 mcg/0.5mL dose or 50 mcg/0.25mL dose 02/03/20 21 completed Janie sadler [facility] 05/29/2021 16:46:13 Pneumococcal conjugate PCV 13 11/06/20 16 completed Janie sadler [facility] 05/29/2021 16:46:45 COVID-19, mRNA, LNP-S, PF, 100 mcg/0.5mL dose or 50 mcg/0.25mL dose 10/24/20 21 [facility] 13:53:02 Influenza, split virus, quadrivalent, preservative 08/15/20 18 completed Sandeep Preston, DO [address] [facility], [place], [address], [facility] 08/16/2018 15:23:56 zoster recombinant 03/06/20 22 completed [facility] 03/07/2022 13:50:21 influenza, intradermal, quadrivalent, preservative free 07/26/20 22 completed Catie sadler [facility] 07/27/2022 09:52:42 zoster live 07/26/20 22 [facility] 07/27/2022 09:53:06 COVID-19, mRNA, LNP-S, PF, 50 mcg/0.5 mL dose 05/23/20 22 [facility] 12/18/2022 08:13:18 COVID-19, mRNA, LNP-S, PF, 50 mcg/0.5 mL dose 08/07/20 22 [facility] 12/18/2022 08:13:25 COVID-19 Non-US Vaccine, Product Unknown 09/04/20 23 completed Yasmin sadler [facility] 09/04/2023 14:09:04 influenza, unspecified formulation 09/04/20 23 [facility] 09/04/2023 14:09:28 influenza, unspecified formulation 10/16/20 24 [facility] 10/19/2024 08:03:11 SARS-COV-2 (COVID-19) vaccine, UNSPECIFIED 10/16/20 24 completed Lali sadler [facility] 10/19/2024 08:03:20 pneumococcal polysaccharide PPV23 08/24/20 15 completed Naya sadler [facility] 12/02/2018 16:29:19 zoster live 05/25/20 14 completed Naya sadler [facility] 12/02/2018 16:29:53 Td (adult) 06/11/20 14 completed Naya sadler [facility] 12/02/2018 16:30:23 Influenza, split virus, quadrivalent, preservative 10/09/20 19 completed Sandeep Preston [address], [address], [facility] 10/11/2019 09:53:38 COVID-19, mRNA, LNP-S, PF, 100 mcg/0.5mL dose or 50 mcg/0.25mL dose 01/05/20 21 [facility] 01/27/2021 15:28:42 Past Encounters Encounter ID Performer Location Encounter Start Date Encounter Closed Date Diagnosis/Indication Diagnosis SNOMED-CT Code Diagnosis ICD10 Code Diagnosis Note [id number] Sandeep Preston [address],[place] [address] 12/03/2018 13:43:00 12/03/2018 16:15:41 Type 1 diabetes mellitus 02462753 E10.9 hasn't been in quite some time last a1c 6.9 in february, retest states he usually sees MB, but he hasn't been here Hyperlipidemia 08890115 E78.5 on atorvatsta tin needs labs Essential hypertension 56395857 I10 on lisinopril - well controlled Gastroesop hageal reflux disease 353000005 K21.9 intermitte nt, uses omeprazole or ranitidine as needed for gerd Irritable bowel syndrome 80276744 K58.9 improves sx, but would like to increase dose for better control Osteoarthritis 297423442 M19.90 [id number] Sandeep Preston DO [facility] [address] [place] [address],[place] [address] 03/02/2019 13:50:36 03/02/2019 14:31:02 Type 1 diabetes mellitus 82624847 E10.8 he continues to self treat does not get lab work (states he cant afford it) relates is not using insulin daily but his a1c 6.4!!!!! Hypertensive disorder 38 241510 I10 is stable now was very nervous Spinal ashok nosis of lumbar region 10634475 M48.061 will work up following his cspine eval Spinal ashok nosis in cervical region 97774599 M48.02 given onset of worsening symnptoms of arm radiculopa thy he needs an mri Rhinophyma 26022267 L71. 1 relates he is applying cortisone that he has left over from vet practice Harmful pa ttern of use of alcohol 99661993 F10.10 long discussion re need to abstain as his LFTs are a problem Benign par oxysmal positional vertigo 432156748 H81.11 will refer ent Sandeep Preston [facility] [address] [facility],[place] [address] 03/23/2019 15:51:32 03/24/2019 08:14:00 Tinnitus of right ear 4533461890 108 H93.11 awaiting the ENT referral has been using benadryl and sudafed(sp elizabeth) to clear his ears Spinal ashok nosis in cervical region 19364601 M48.02 MRI shows that he has stable hardware and no canal stenosis but he does have foraminal encroachme nt bilat Paresthesia 79293710 R20 .2 Liver func tion tests outside reference range 227315463 R94.5 [id number] Sandeep Preston [facility] [address] [facility],[place] [address] 06/15/2019 15:54:08 06/15/2019 16:52:06 Hypertensive disorder 59659274 I10 is stable now was very nervous Degenerati on of intervertebral disc 82483041 M51.9 will cont to treat conserv Type 1 krystal betes mellitus 54557260 E10.8 he continues to self treat does [...] i had implored him to get last Harmful pa ttern of use of alcohol 41163945 F10.10 long discussion re need to abstain as his LFTs are a problem but we can never be sure relates took some old codeine for some weight Depressive disorder 2478 9007 F32.0 will try a ssri for his depression [id number] Sandeep Preston DO [facility] [address] [facility],[place] [address] 09/23/2019 10:43:14 09/23/2019 11:27:25 Hypertensive disorder 65215426 I10 is stable now was very nervous Type 1 krystal betes mellitus 63133929 E10.8 he continues to self treat does [...] to get last Primary er ectile dysfunction 402301247 N52.9 doing this under the guise of dr hook discussed and instructed re his questions as best that i can Rosacea 976352205 L71.9 wishes to try a topical will try to tx with lotion or gel Hernia of anterior abdominal wall 878752414 K43.9 reassuranc e call if any sudden worsening Sleep apnea 89053658 G47 .30 agrees to have this taken care of Hearing loss 18309496 H9 0.0 will order [id number] Sandeep Preston DO [facility] [address] [facility],[place] [address] 10/23/2019 08:54:59 10/23/2019 09:19:17 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 C44.629 2 cm lesion R forearm 10 days sun exposed area Pain of le ft hip joint 3807261884 99605 M25.552 Left iliac crest pain [id number] Sandeep Preston DO [facility] [address] [facility],[place] [address] 01/27/2021 15:15:40 01/27/2021 16:12:03 Type 1 diabetes mellitus 46815810 E10.8 a1c is 7.8 he continues to [...] well and was good Hypertensive disorder 38 057321 I10 is stable now was very nervous Hepatitis C screening 41 6715816 Z11.59 next lab ordered lab slip given Abdominal aortic aneurysm screening 324115252 Z13.6 [id number] Sandeep Preston DO [facility] [address] [facility],[place] [address] 05/30/2021 13:35:15 05/30/2021 14:09:38 Hypertensive disorder 25803930 I10 is stable now Type 1 krystal betes mellitus 57487315 E10.8 a1c is 7.0 and prior was 7.8 reviewed last lab in detail relates is using insulin daily states he is checking glucose bid but when asked to see glucos says he doesnt have any results to show reccc he get a diabetic foot exam he did get an diabetic eye exam as well and was good Hypercholesterolemia 136 66952 E78.00 had stopped the statin on his own Depressive disorder 3548 9007 F32.0 not currently taking Pre-surger y evaluation 314002235 Z01.818 per the 2017 ACC (revised) cardiac risk stratifica tion he is currently considered a low risk for the proposed ENT procedure. pt understand s to hold the meloxicam but to cont his usual medication s on the day of surgery with the exception of only taking half his dose of insulin.th e night before. [id number] Sandeep Preston DO [facility] [address] [facility] [address] 12/01/2021 08:27:36 12/01/2021 13:39:52 Type 1 diabetes mellitus 89554218 E10.8 a1c is 7.0 and prior was 7.8 reviewed last lab in detail relates is using insulin daily states he is checking glucose bid but when asked to see glucos says he doesnt have any results to show reccc he get a diabetic foot exam he did get an diabetic eye exam as well and was good Hypertensive disorder 38 416396 I10 is stable now Gastroesop hageal reflux disease 449417138 K21.9 seems to be stable Harmful pa ttern of use of alcohol 15918727 F10.10 long discussion re need to abstain as his LFTs are a problem but we can never be sure Depressive disorder 3548 9007 F32.0 not currently taking Trochanter ic bursitis of left hip 4345623797 52302 M70.62 still having issues with this ok for him to get more active as necessusin g voltaren gel [id number] Sandeep Preston DO [facility] [address] [facility],[employer]hi [employer] [place] [address] 03/19/2022 10:11:39 03/19/2022 10:57:57 Hypercholesterolemia 07525062 E78.00 had stopped the statin on his own Hypertensive disorder 38 383830 I10 is stable now Type 1 krystal betes mellitus 97257158 E10.8 a1c is 7.3 and prior was 6.7 reviewed last lab in detail relates is using insulin daily lantus at 20 and had been doing okalso uses 5-10u of novolog with meals reccc he get a diabetic foot exam he did get an diabetic eye exam as well and was good Papilloma 493047611 D36. 9 will require yet another surgery for this in post nasopharyn xwe will have him cont with spec Trochanter ic bursitis of left hip 4435162806 48418 M70.62 still having ongoing pain and now affecting his wall\cathy and also he can no longer stand for lengths of time because of it [id number] Sandeep Preston DO [facility] [address] [facility],[employer] Janet [place] [address] 07/27/2022 09:40:12 07/27/2022 10:43:08 Type 1 diabetes mellitus 40996737 E10.8 a1c is now 6.7 and is doing good 7.3 and prior was 6.7 reviewed last lab in detail relates is using insulin daily lantus at 20 and had been doing okalso uses 5-10u of novolog with meals reccc he get a diabetic foot exam he did get an diabetic eye exam as well and was good Cramp in lower limb 4499 75016 R25.2 pt will try the magnesium 400 Hypertensive disorder 38 841649 I10 is stable now and good readings at home Degenerati on of intervertebral disc 23215940 M51.9 will cont to treat conserv [id number] Sandeep Preston [facility] [address] [facility],[place] [address] 10/15/2022 14:24:52 10/15/2022 15:07:12 Hypercholesterolemia 96284445 E78.00 had stopped the statin on his own Hypertensive disorder 38 951191 I10 is stable now and good readings at home glucose readings look very good and he is actually feeling well Type 1 krystal betes mellitus 80326243 E10.8 a1c is now 6.7 and is doing good 7.3 and prior was 6.7 reviewed last lab in detail relates is using insulin daily lantus at 20 and had been doing okalso uses 5-10u of novolog with meals reccc he get a diabetic foot exam he did get an diabetic eye exam as well and was good Allergic rhinitis 388597 04 J30.9 sees schreibste in for the papilloma [id number] Sandeep Preston [facility] [address] [facility],Gandhi ite D [employer] [place] [address] 12/05/2022 11:28:23 12/05/2022 12:21:46 Hypertensive disorder 56405921 I10 will trial patient on clonidine QDfu in a week to recheck will also update MB Irritable bowel syndrome 02044580 K58.9 will need refills [id number] Sandeep Presotn [facility] [address] [facility],[place] [address] 12/18/2022 11:11:01 12/18/2022 16:11:12 Hypertensive disorder 59000939 I10 will continue the clonidine as the pt doesn't want to change medication Type 1 krystal betes mellitus 43417610 E10.8 the patient reports that he is having fluctuatio ns every other week or socan go up to 10 units [place] [id number] Sandeep Preston DO [facility] [address] [facility],[place] [address] 01/16/2023 11:31:20 01/16/2023 14:09:08 Type 1 diabetes mellitus 83921072 E10.8 a1c is up to 7.4 was [...] good (he has not) Hypertensive disorder 38 520690 I10 is stable now and good readings at home glucose readings look very good and he is actually feeling well Depressive disorder 3548 9007 F32.0 not currently taking Advance care planning 71 5733622 Z71.89 utd Screening for malignant neoplasm of colon 209486168 Z12.11 he is already on a schedule for his colonoscop y Irritable bowel syndrome 44824388 K58.9 using the dicyclomin e with good results [id number] Sandeep Preston [facility] [address] [facility],[employer]hi ite Janet [place] [address] 02/20/2023 14:23:29 02/20/2023 16:05:07 Atypical chest pain 097185312 R07.89 immediatel y start ASA 325 mg Dyspnea 916738265 R06.02 ddx includes PE, angina, ACStold to report to the ER immediatel y if his symptoms worsendecl ined ER today Essential hypertension 55028154 I10 been ranging high for the past month [id number] Sandeep Preston [facility] [address] [facility],[employer] it[employer] [place] [address] 03/20/2023 11:29:07 03/20/2023 14:03:18 Chronic srtw-NPKNI-00 syndrome 9640392059 U09.9 althoug he is somewhat improvedre lates that overall doing okand feeling betterusin g th e guaifen daily not twice ad daynow headaches are gone as well Essential hypertension 78806993 I10 home bps are notably improved now and doing good Type 1 krystal betes mellitus 70549443 E10.8 a1c is at 7.2 was at7.4 [...] well and was good (he has not) 64248 DO [facility] [address] [facility],[place] [address] 07/24/2023 10:43:43 07/24/2023 11:53:06 Essential hypertension 04802288 I10 home bps are notably improved now and doing good Gastroesop hageal reflux disease 752823775 K21.9 seems to be stable Hypertensive disorder 38 708953 I10 is stable now and good readings at home glucose readings look very good and he is actually feeling well Type 1 krystal betes mellitus 17084617 E10.8 a1c is at 6.4 now 7.2 [...] good (he has not) 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 is bothered a lot by the numerous sx for this Irritable bowel syndrome with diarrhea 507342207 K58.0 still taking his dicyclomin e again reiterated the amount of Mg+ he is taking for leg cramps is too much Mild neuro cognitive disorder 350796539 G31.84 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 pt is struggling with this Tinnitus 35184090 H93.19 discussion this has been ongoing and is seeing an ENT next week Diabetic p eripheral neuropathy 664425481 E11.40 actually seems to be better and is more steady on his feet noted correspond ing improvemen t with improved glucose readings [id number] DO [facility] [address] [facility],[place] [place] [address] 10/25/2023 11:05:20 10/25/2023 13:37:26 Essential hypertension 98406547 I10 home bps are notably improved now and doing good Hypercholesterolemia 136 37378 E78.00 had stopped the statin on his own Hypertensive disorder 38 452089 I10 is stable now and good readings at home glucose readings look very good and he is actually feeling well Type 1 krystal betes mellitus 48795292 E10.8 a1c is at 6.4 in jul [...] has not) Irritable bowel syndrome with diarrhea 992826615 K58.0 still taking his dicyclomin e but only rarely [id number] DO [facility] [address] [facility],[employer]hi [employer] [place] [address] 01/22/2024 08:01:29 01/22/2024 09:49:46 Left lower quadrant pain 980837617 R10.32 Hypertensive disorder 38 809686 I10 is stable now and good readings at home glucose readings look very good and he is actually feeling well Type 1 krystal betes mellitus 82431987 E10.8 a1c is at 6.4 in jul [...] was good (he has not) Depressive disorder 0419 8366 F32.0 not currently taking any med per his decision [id number] Sandeep Preston DO [facility] 179 [facility] on [facility] [place] [address] 02/12/2024 11:14:26 02/12/2024 12:15:06 Adult health examination 345496175 Z00.01 Screening for cardiovascular system disease 027748802 Z13.6 Screening for malignant neoplasm of colon 548630012 Z12.11 he is already on a schedule for his colonoscop y 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 7055681191 U09.9 he is still struggling with the mentation and cognitive issueaccor tracy to the study in the brain behavioral immun health aug 2022 will try the naltrexone 1mg daily Mood disorder 55934172 F 39 will begin wellbutrin 150 bid [id number] Sandeep Preston DO [facility] 179 [facility] [address] 04/24/2024 11:34:16 04/24/2024 12:38:31 Depression screening 980297925 Z13.31 SCREENING NEGATIVE Left lower quadrant pain 011932369 R10.32 this is now gone and he feels markedly better Type 1 krystal betes mellitus 40464191 E10.8 a1c is at 6.4 in jul [...] (he has not) 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 7462249466 U09.9 he is still struggling with the mentation and cognitive issueaccor tracy to the study in the brain behavioral immun health augut brain fog has cleared taking clonidine guaefensin e and lisinopril for bp will try the naltrexone 1mg daily [id number] Sandeep Preston DO [facility] 179 [facility] christi Gonzales [facility] [address] 08/10/2024 14:45:41 08/11/2024 09:29:53 Hypercholesterolemia 49401165 E78.00 had stopped the statin on his own Hypertensive disorder 38 843068 I10 is stable now and good readings at home glucose readings look very good and he is actually feeling well Type 1 krystal betes mellitus 24698589 E10.8 a1c is at7.2 was 6.8 in [...] (he has not) 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 9031516226 U09.9 he is still struggling with the mentation and cognitive issueaccor ding to the study in the brain behavioral immun health augut brain fog has cleared taking clonidine guaefensin e and lisinopril for bp will try the naltrexone 1mg daily [id number] Sandeep Preston, [facility] [address] [facility] [address],[place] [address] 12/04/2024 09:32:43 12/04/2024 10:13:34 Hypertensive disorder 16025297 I10 bp is elevated and not controlled Type 1 krystal betes mellitus 28770215 E10.8 a1c is pending sugars checked at [...] good (he has not) Irritable bowel syndrome 06038524 K58.9 using the dicyclomin e with good results 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 5036758527 U09.9 he is still struggling with the mentation and cognitive issuewe will see if he is a candidate for a stellate ganglion according to the study in the brain behavioral immun health aug brain fog has cleared taking clonidine guaefensin e andnaltrex one 1mg daily [id number] Sandeep Preston [facility] 179 [facility],[place] [address] 02/17/2025 11:48:38 02/17/2025 12:27:46 Depression screening 994954846 Z13.31 SCREENING NEGATIVE Hypercholesterolemia 136 03858 E78.00 had stopped the statin on his own Hypertensive disorder 38 437257 I10 bp is elevated and not controlled Type 1 krystal betes mellitus 05551722 E10.8 a1c is pending sugars checked at home are elevated was at 7.1 was 7.2 was 6.8 in nov 2023 and [...] well and was good (he has not) [id number] Sandeep Preston DO [facility] [address] [facility],[place] [address] 05/31/2025 10:34:08 05/31/2025 11:48:39 Screening for cardiovascular system disease 212361967 Z13.6 stable Screening for malignant neoplasm of colon 350573460 Z12.11 he is already on a schedule for his colonoscop y Depression screening 171 606772 Z13.31 SCREENING NEGATIVE Hypercholesterolemia 136 10939 E78.00 had stopped the statin on his own Hypertensive disorder 38 388145 I10 bp is elevated and not controlled Type 1 krystal betes mellitus 32421901 E10.8 a1c is pending sugars checked at home are elevated was at 7.1 was 7.2 was 6.8 in nov 2023 and [...] well and was good (he has not) Well adult 030043937 Z00 .00 Health Concerns Section Related Observation LastModified by Organization Detai ls LastModified Time None Recorded Concern Status LastModified by Organization Details LastModified Time None Recorded Advance Directives Directive None Recorded Payers Insurance Date Sequence Insurance Name Policy Number Policy Mcwilliams Covered Member ID Mcwilliams Member ID Guarantor Name 05/28/2025 1 [place] [employer] Zaid Wilson Eugenio [id number] Zaid Becker 08/10/2024 2 [facility] Zaid Becker [id number] Zaid Becker 05/28/2025 2 [place] [id number] Zaid Becker [id number] Zaid Becker Notes Date Note Type Note Provider Name and Address Organization Details Recorded Time 04/24/20 24 text/htm l here for rechk and is doing better wellbutrin is working better and feels gooddoing weel more active and eating betterrelates that he Sandeep Preston, DO [address] [facility], [place], [address], [facility] 04/24/2024 12:27:25 08/10/20 24 text/htm l Care Management - DiabetesReported bypatient.Self [...] get worse and felt he had a fljfs5a is 7.2he is feeling better overallmore active and physical Sandeep PrestonDO [address] [place], [address], [facility] 08/10/2024 20:07:53 12/04/19 25 text/htm l Care Management - DiabetesReported bypatient.Prognosis:expect ed outcome: improve; prognosis: good Self Care:seeing eye [...] bp iss elevated dm is up Sandeep GibbsDO [place] [address] [place], [address], [facility] 12/04/2024 10:10:05 02/18/20 25 text/htm l Care Management - DiabetesReported bypatient.Self [...] feet; no calluses on feetCare Management - HyperlipidemiaReported bypatient.Control:usually well controlled; improving; at goal Complications:no coronary artery disease; no heart attack; no cardiovascular disease; no pancreatitis; no strokeCare Management - HypertensionReported bypatient.Self Care:not under emotional stress Severity:symptoms are improving; does not interfere with daily activities Associated Symptoms:no dizziness; no lightheadedness; no chest pain; no shortness of breath; no palpitations; no edema; no calf muscle cramps; no blurred vision; no confusion; no headaches; no fatigue stable the last 6 mo a1c is 7.1 and currently is about the samehe is blaming all his whoes on the long covid dxstats he is getting very low sugars at timesrelates having a lot stomach /belly expansion and states he is not eating a lot states 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 Sandeep Preston, DO [address] [place], [address], [facility] 02/17/2025 12:24:22 05/31/20 25 text/htm l Care Management - DiabetesReported bypatient.Self [...] feet; no calluses on feetCare Management - HyperlipidemiaReported bypatient.Control:usually well controlled; improving; at goal Complications:no coronary artery disease; no heart attack; no cardiovascular disease; no pancreatitis; no strokeCare Management - HypertensionReported bypatient.Self Care:not under emotional stress Severity:symptoms are improving; does not interfere with daily activities Associated Symptoms:no dizziness; no lightheadedness; no chest pain; no shortness of breath; no palpitations; no edema; no calf muscle cramps; no blurred vision; no confusion; no headaches; no fatigueMedicare Annual Wellness VisitReported bypatient.Diet and Nutrition:healthy diet [...] the bathroom/shower; good lighting in the home doing well !!relates has kept his weight offrelates feeling better now than in a long timeback is good since injectionshome bps are doing great all avg 120 /60'srelates shoulder is doing welleating oksloyda Preston, DO [address] [facility], [place], [address], [facility] 05/31/2025 11:17:41
[2025-06-01 13:08] LABS: MANUAL DIFF FLAG NO
[2025-06-01 13:59] LABS: Hemoglobin A1C 171.0359 umol/L; Total Hemoglobin (HGBA1C) 3268.6939 umol/L
[2025-06-01 14:00] LABS: Hematocrit 38.0 % (42.0-52.0); Hemoglobin 12.7 g/dl (14.0-18.0); Imm Gran Abs Auto 0.06 X10*3/uL (0.00-0.03); Imm Gran Pct Auto 0.5 % (0.0-0.4); Lymphocytes Absolute Auto 0.9 X10*3/uL (1.2-4.9); Mean Corpuscular HGB Conc 33.4 g/dl (31.0-36.0); Mean Corpuscular Hemoglobin 31.5 pg (27.0-33.0); Mean Corpuscular Volume 94.3 fL (80.0-98.0); NRBC Abs Auto 0.000 X10*3/uL (0.0-0.012); NRBC Pct Auto 0.0 /100WBC (0.0-0.2); Platelet Count 408 X10*3/uL (160-400); Red Blood Count 4.03 X10*6/uL (4.60-5.80); White Blood Count 13.2 X10*3/uL (4.8-10.8)
[2025-06-01 14:21] LABS: Alanine Aminotransferase 30 U/L (0-40); Albumin Level 4.1 g/dL (3.5-5.0); Alkaline Phosphatase 81 U/L (39-117); Anion Gap 16 (12-20); Aspartate Amino Transferase 26 U/L (5-37); Blood Urea Nitrogen 18 mg/dL (9-16); Calcium 8.9 mg/dL (8.4-10.2); Carbon Dioxide 22 mmol/L (22-29); Chloride 105 mmol/L (96-108); Cholesterol 155 mg/dL (<200); Estimated Glomerular Filt Rate > 60; HDL Cholesterol 66 mg/dL (>40); Potassium 4.3 mmol/L (3.3-5.1); Sodium 139 mmol/L (135-145); Total Protein 6.6 g/dL (6.5-8.0); Triglycerides 126 mg/dL (<150)
[2025-06-01 14:39] LABS: Prostate Specific Antigen 2.81 ng/mL (<0.05-4.0)
== END 2025-06-01 11:01 | disposition home or self-care (01) ==
LOC: HO.MANLDS 11:00
PROVIDERS: Visit Provider Internal Medicine
DX: Z12.5 Encounter for screening for malignant neoplasm of prostate (principal); E78.00 Pure hypercholesterolemia, unspecified; E10.8 Type 1 diabetes mellitus with unspecified complications
CPT/HCPCS: 36415; 80053; 80061; 83036; 84153; 85025

== ENCOUNTER 2025-07-08 20:08 | Outpatient (REF) | payer MEDICARE, SELFPAY ==
--- OUTSIDE RECORDS SUMMARY | 2024-08-03 12:13 | XMS_ITS | Encounter Summary ---
Author Organization [facility] Address [address] [place] [phone] Phone Care Team Providers Care Dyslexia Teacher Name Role Phone Sandeep Preston Primary Care Provider [phone] Encounter Details Date Type Department Care Team (Late st Contact Info) Description 08/03/2024 12:13 PM EDT Hospital Encounter [facility] [address] [place] [id number] Adelia Jay FNP [address] [place] [phone] [email or web address] Social History Tobacco Use Types Packs/Day [...] clinician's provided indication for this examination in [facility]:Pain; pain dorsal aspect mid left wrist for 2 days without injury. mildswelling. COMPARISON: None FINDINGS: No fracture. Normal alignment. Mild soft tissue swelling over the dorsumof the wrist. Chondrocalcinosis of the triangular fibrocartilage complexand the radiocarpal joint. Mild degenerative changes at the base of thethumb. IMPRESSION: No fracture or dislocation. Adelia Jay CARTRIDGE LOADING OPERATOR IMG XR UPPER EXTREMITY Prudence l Result documented in this encounter Visit Diagnoses Not on filedocumented in this encounter Care Teams Dyslexia Teacher Relationship Specialty Start Date End Date Sandeep Preston DO [email or web address] PCP - General Internal Medicine 09/16/17 documented as of this encounter Additional Source Comments The information contained in this document represents components of the legal health record. It is not the complete legal health record.[facility]
--- NOTE | ~2025-07-08 | MR_ITS ---
CLINICAL HISTORY: TEAR OF LT BICEPS MUSCLE MR left shoulder without gadolinium Comparison: None provided Findings: No acute fractures. No pathologic bone lesions. Widening of the acromioclavicular interval to 13 mm. Periarticular osteophyte formation at the glenohumeral joint. Type II acromion. No joint effusion. There is full-thickness tearing of the mid and anterior supraspinatus tendon at the humeral insertion site with associated supraspinatus atrophy. There is moderate diffuse thinning of the infraspinatus tendon with associated infraspinatus atrophy. Low-grade articular surface and intrasubstance tearing of the upper, mid, and lower subscapularis tendon at the humeral insertion site extending to the musculotendinous junction. Teres minor is intact. Diffuse degenerative fraying of the glenoid labrum. High-grade biceps tendon tear. IMPRESSION: 1. Full-thickness tearing and atrophy of the supraspinatus tendon as above. 2. Diffuse infraspinatus tendon tearing and infraspinatus atrophy. 3. Low-grade subscapularis tendon tearing. 4. Biceps tendon tear. 5. Acromioclavicular separation. 6. Degenerative fraying of the glenoid labrum. This document has been electronically signed by: Eulalia Kelly MD on 07/09/2025 20:32:39
--- OUTSIDE RECORDS SUMMARY | 2025-07-08 20:09 | XMS_ITS | Encounter Summary ---
Author Organization [facility] Address [address] [address] Phone Care Team Providers Care Wire Spring Relay Adjuster Name Role Phone Sandeep Preston Primary Care Provider [phone] Encounter Details Date Type Department Care Team (Late st Contact Info) Description 02/21/2024 Procedure Pass [facility] Endoscopy Admitting Dept Virtual Department [address] [place] [address] Social History Tobacco Use Types Packs/Day Years [...] on file documented as of this encounter Visit Diagnoses Not on filedocumented in this encounter Additional Health Concerns Infection Onset Date Last Indicated Resolved Time CDiff-Risk 02/21/2024 02/21/2024 02/21/2024 5:02 PM EDT documented as of this encounter Care Teams Wire Spring Relay Adjuster Relationship Specialty Start Date End Date Sandeep Preston DO [email or web address] PCP - General Internal Medicine 09/16/17 documented as of this encounter Additional Source Comments The information contained in this document represents components of the legal health record. It is not the complete legal health record.[facility]
--- OUTSIDE RECORDS SUMMARY | 2025-07-08 20:10 | XMS_ITS | Encounter Summary ---
Author Organization [facility] Address [address] [address] Phone Care Team Providers Care Contract Agent Name Role Phone Sandeep Preston DO Primary Care Provider [phone] Encounter Details Date Type Department Care Team ([facility] st Contact Info) Description 01/30/2021 Transcribe Orders Virtual Department [address] [place] [address] Sandeep Preston DO [address] [facility] [address] [email or web address] Encounter for abdominal aortic aneurysm screening (Primary Dx); Encounter for screening for cardiovascular disorders Social History Tobacco Use Types Packs/Day Years Used Date Smoking Tobacco: Never Assessed Sex and Gender Information Value Date Recorded Sex Assigned at Not on file Legal Sex Male 10:02 PM EDT Gender Identity Not on file Sexual Orientation Not on file documented as of this encounter Plan of Treatment Not on file documented as of this encounter Visit Diagnoses Diagnosis Encounter for abdominal aortic aneurysm screening- Primary Encounter for screening for cardiovascular disorders documented in this encounter Additional Health Concerns Infection Onset Date Last Indicated Resolved Time CDiff-Risk 02/21/2024 02/21/2024 02/21/2024 5:02 PM EDT documented as of this encounter Care Teams Contract Agent Relationship Specialty Start Date End Date Sandeep Preston DO [email or web address] PCP - General Internal Medicine 09/16/17 documented as of this encounter Additional Source Comments The information contained in this document represents components of the legal health record. It is not the complete legal health record.[facility]
--- OUTSIDE RECORDS SUMMARY | 2025-07-08 20:10 | XMS_ITS | Clinical Summary ---
Author Organization [facility] Address [address] [address] Phone Care Team Providers Care Forklift Truck Mechanic Name Role Phone Devorah Dumont DO Primary Care Provider [phone] Allergies Active Allergy Reactions Criticality Noted Date Comments Diclofenac 08/03/2024 Other Reaction(s): Not available Morphine 02/21/2024 Nsaids (Non-Steroidal Anti-Inflammatory Drug) 02/21/2024 Other Reaction(s): UPSET STOMACH Opioids - Morphine Analogues 08/03/2024 Other Reaction(s): severe itch Medications buPROPion (WELLBUTRIN SR) 150 MG SR 12 hr tablet Take 150 mg by mouth 2 (two) times a day. 4 Active lisinopril (PRINIVIL,ZESTR IL) 20 MG tablet Take 20 mg by mouth daily. Active rosuvastatin (CRESTOR) 5 MG tablet Take 5 mg by mouth daily. Active meloxicam (MOBIC) 15 MG tablet Take 15 mg by mouth daily. Active TOUJEO MAX U-300 SOLOSTAR 300 unit/mL (3 mL) InPn 3 mL by subcutaneous (via wearable injector) route nightly at bedtime. Active cloNIDine HCL (CATAPRES) 0.2 MG tablet Take 1 tablet by mouth 2 (two) times a day. 4 Active Active Problems Problem Noted Date Diagnosed Date Hypertension 02/21/2024 Type 2 diabetes mellitus 02/21/2024 Other hyperlipidemia 02/21/2024 Type 1 diabetes mellitus 02/21/2024 Class 1 obesity 02/21/2024 Disorder of rotator cuff 02/21/2024 Social History Tobacco Use Types Packs/Day Years Used Date Smoking Tobacco: Never Smokeless Tobacco: Never Tobacco Cessation:Counseling Given: Not Answered Alcohol Use Standard Drinks/Week Comments Not Currently [...] on file Sexual Orientation Not on file Last Filed Vital Signs Vital Sign Reading Time Taken Comments Blood Pressure 162/77 08/03/2024 12:06 PM EDT Pulse 82 08/03/2024 12:06 PM EDT Temperature 37.1 C (98.8 F) 08/03/2024 12:06 PM EDT Respiratory Rate 16 08/03/2024 12:06 PM EDT Oxygen Saturation 99% 08/03/2024 12:06 PM EDT Inhaled Oxygen Concentration - - Weight 88.5 kg (195 lb) 02/21/2024 1:51 PM EDT Height 177.8 cm (5' 10 ) 02/21/2024 1:51 PM EDT Body Mass Index 27.98 02/21/2024 1:51 PM EDT Plan of Treatment Health Maintenance Due Date Last Done Comments Adult Td,Tdap Booster 1950 CREATININE LEVEL 1950 HEMOGLOBIN A1C 1950 POTASSIUM LEVEL 1950 DEPRESSION SCREENING 1962 HEPATITIS C SCREENING 1968 COLOGUARD 1995 FIT TEST 1995 FOBT 1995 SIGMOIDOSCOPY 1995 VIRTUAL COLONOSCOPY 1995 RSV VACCINE (1 - Risk 60-74 years 1-dose series) 2010 DIABETIC EYE EXAM 02/21/2024 COVID-19 VACCINE ( season) 2024 09/03/2023, 08/07/2022, 05/23/2022, Additional history exists BLOOD PRESSURE 01/31/2025 08/03/2024 COLONOSCOPY 02/20/2034 02/21/2024 COLORECTAL CANCER SCREENING 02/20/2034 ZOSTER VACCINES Completed 07/26/2022, 03/06/2022 PNEUMOCOCCAL VACCINES (50+ years) Completed 08/07/2022, 11/06/2016, 08/24/2015 SMOKING STATUS SCREENING (Once After 26 Yrs) Completed 08/03/2024 HEPATITIS A VACCINES Aged Out No long er eligible based on patient's age to complete this topic HIB VACCINES Aged Out No longer eligi ble based on patient's age to complete this topic MENINGOCOCCAL VACCINES (ACWY) Aged Out No longer eligible based on patient's age to complete this topic MENINGOCOCCAL VACCINES (B) Aged Out N o longer eligible based on patient's age to complete this topic Medical Devices Not on file Procedures Procedure Name Priority Date/Time Associated Diagnosis Comments ENDOSCOPY, COLON 02/21/2024 2:23 PM EDT from Last 3 Months or Most Recently Relevant to Health Maintenance Results * ENDOSCOPY, COLON (02/21/2024 2:23 PM EDT) Narrative Transcriptions Miguel Skinner MD - 02/21/2024 2:23 PM EDT [facility] Patient Name: Zaid Becker Attending MD:: MIGUEL SKINNER MD, Procedure Date: 02/21/2024 2:23 PM Date of : 1950 Age: 73 Admit Type: Outpatient Gender: Male Room: [facility] 05 Referring MD: DEVORAH DUMONT DO Exam Type: Colonoscopy Indications: Chronic diarrhea Medications: Monitored Anesthesia Care Procedure: Informed consent was obtained from the patientafter discussion of the indications, limitations, alternatives, benefits, and risks of the procedure. Risks specifically discussed include but are not limited to medication reactions, missed lesions, bleeding, perforation, or the need for emergent surgery. Throughout the procedure, the patient's blood pressure, pulse, end-tidal CO2, and oxygensaturations were monitored continuously. The Olympus adult variable colonoscope CF-[id number] #7 was introduced through the anus and advanced to the cecum, identified by the appendiceal orifice. The colonoscopy was performed without difficulty. The patient tolerated the procedure well. The qualityof the bowel preparation was fair. Anatomicallandmarks were photographed. Complications: No immediate complications. Estimated blood loss:None. Findings: The perianal and digital rectal examinations were normal. Multiple small-mouthed diverticula were found inthe sigmoid colon and descending colon. Three sessile polyps were found in the sigmoidcolon and ascending colon. The polyps were 3 to 6 mm in size. These polyps were removed with a cold snare. Resection was complete, but the polyp tissue wasonly partially retrieved. The rectum, recto-sigmoid colon, descending colon, splenic flexure, transverse colon, hepatic flexure, cecum, appendiceal orifice and rectum (on retroflexion) appeared normal. Biopsies were taken with a cold forceps for histology. Impression: - Preparation of the colon was fair. - Diverticulosis in the sigmoid colon and in the descending colon. - Three 3 to 6 mm polyps in the sigmoid colon andin the ascending colon, removed with a cold snare. Complete resection. Partial retrieval. - The rectum (on retroflexion), rectum, descending colon, splenic flexure, transverse colon, hepatic flexure, cecum, recto-sigmoid colon and appendiceal orifice are normal. Recommendation: - Discharge patient to home. - High fiber diet. - Continue present medications. - Await pathology results. - Repeat colonoscopy in 3 years for surveillance. - A two day preparation will be utilized on thefollow up colonoscopy. MIGUEL SKINNER MD 02/21/2024 2:51:00 PM This report has been signed electronically. Number of Addenda: 0 Note Initiated On: 02/21/2024 2:23 PM Procedure Date: 02/21/2024 2:23:[address] [place] [address] [place] Devorah Dumont DO GI PROCEDURE ORDERABLES Final Re sult from Last 3 Months or Most Recently Relevant to Health Maintenance Insurance MEDICARE PART A & B [employer] SUPPLEMENT MEDICARE PART A & B [employer] SUPPLEMENT MEDICARE PART A & B [employer] MEDEX SUPPLEMENT MEDICARE PART A & B [employer] CROSS MEDEX SUPPLEMENT MEDICARE PART A & B [employer] CROSS MEDEX SUPPLEMENT MEDICARE PART A & B [employer] MEDEX SUPPLEMENT MEDICARE PART A & B [employer] CROSS MEDEX SUPPLEMENT MEDICARE PART A & B [employer] CROSS MEDEX SUPPLEMENT MEDICARE PART A & B [place] [address] Care Teams Forklift Truck Mechanic Relationship Specialty Start Date End Date Devorah Dumont DO [email or web address] PCP - General Internal Medicine 09/16/17 Additional Source Comments The information contained in this document represents components of the legal health record. It is not the complete legal health record.[facility]
--- OUTSIDE RECORDS SUMMARY | 2025-07-08 20:10 | XMS_ITS | Encounter Summary ---
Author Organization [facility] Address [address] [address] Phone Care Team Providers Care Warp Scouring Vat Tender Name Role Phone Sandeep Preston DO Primary Care Provider [phone] Encounter Details Date Type Department Care Team (Late st Contact Info) Description 03/02/2019 Procedure Pass [facility], [address] [address] Social History Tobacco Use Types Packs/Day Years [...] documented as of this encounter Care Teams Warp Scouring Vat Tender Relationship Specialty Start Date End Date Sandeep Preston DO PCP - General Internal Medicine 09/16/17 documented as of this encounter Additional Source Comments The information contained in this document represents components of the legal health record. It is not the complete legal health record.[facility]
--- OUTSIDE RECORDS SUMMARY | 2025-07-08 20:10 | XMS_ITS | Encounter Summary ---
Author Organization [facility] Address [address] [address] Phone Care Team Providers Care Entry Examiner Name Role Phone Sandeep Preston DO Primary Care Provider [phone] Reason for Referral * MRI/CAT Scan - Closed Specialty Diagnoses / Procedures Referred By Contac t Referred To Contact Radiology Diagnoses Spinal stenosis in cervical region Procedures MRI Cervical Spine Sandeep Preston DO Phone: tel: fax: [email or web address] Referral ID Status Reason Start Date Expiration Date Visits Re quested Visits Authorized [id number] Closed 03/02/2019 03/01/2020 1 1 Encounter Details Date Type Department Care Team (Late st Contact Info) Description 03/02/2019 Transcribe Orders Virtual Department [address] [place] [address] Sandeep Preston DO [address] [facility] [place] [address] [email or web address] Spinal stenosis in cervical region (Primary Dx) Social History Tobacco Use Types Packs/Day Years Used Date Smoking Tobacco: Never Assessed Sex and Gender Information Value Date Recorded Sex Assigned at Not on file Legal Sex Male 10:02 PM EDT Gender Identity Not on file Sexual Orientation Not on file documented as of this encounter Plan of Treatment Not on file documented as of this encounter Results * MRI CERVICAL SPINE (NEURO) FOCUS WITHOUT CONTRAST (03/13/2019 1:52 PM EDT) Anatomical Region Laterality Modality C-spine Magnetic Resonan ce 03/13/2019 2:33 PM EDT Impressions 03/13/2019 3:39 PM EDT 1. Posterior fusion hardware spanning C3-C6. Normal cervical spine alignment. 2. No disc herniation or significant canal stenosis in the cervical spine. 3. With the artifact from the hardware, limited evaluation of the neural foramen. There is likely moderate foraminal stenosis bilaterally C3-C4, C4-C5 and C5-C6 and mild to moderate bilateral neural foraminal stenosis at C6-C7. POS [id number] Narrative 03/13/2019 3:39 PM EDT EXAM: MRI CERVICAL SPINE (NEURO) FOCUS WITHOUT CONTRAST HISTORY: - SPINAL STENOSIS [KNOWN DX] SPINAL STENOSIS IN CERVICAL REGION, SEVERE history of prior surgery 2001. Recurrent numbness in both arms and hands for 4 months. TECHNIQUE: Exam performed on a 1.5 Zoraida high-field MRI unit. Sagittal T1, sagittal T2, sagittal STIR, axial 3-D cosmic, axial T2 gradient echo, axial T2 sequences. COMPARISON: None. FINDINGS: The cerebellar tonsils are normal in position. The cervical spinal cord is normal in morphology. Findings of posterior decompression with posterior fusion hardware C3-C6. Cervical vertebrae are normal in height and alignment. There is no bone marrow edema or fracture. Fatty endplate signal changes are seen at C3-C4 where there is moderate loss of disc height. Mild disc degeneration at the other levels with minimal or no loss of disc height. There is no disc herniation or canal stenosis in the cervical spine. The fusion hardware C3 through C6 results in significant artifact, such that detailed evaluation of the neural foramen is limited. There is likely moderate foraminal stenosis bilaterally at C3-C4, C4-C5 and C5-C6, mild to moderate neuroforaminal stenosis at C6-C7. The neural foraminal stenosis is secondary to proliferative bony changes at the facet joints and uncovertebral spurring. There is no prevertebral soft tissue signal abnormality. There is linear dark signal scarring in the subcutaneous fat superficial to the spinous processes C3-C6. There is posterior paraspinous muscular atrophy. Procedure Note Mahogany Rangel MD - 03/13/2019 EXAM: MRI CERVICAL SPINE (NEURO) FOCUS WITHOUT CONTRAST HISTORY: - SPINAL STENOSIS [KNOWN DX] SPINAL STENOSIS IN CERVICAL REGION, SEVERE history of prior surgery 2001.Recurrent numbness in both arms and hands for 4 months. TECHNIQUE: Exam performed on a 1.5 Zoraida high-field MRI unit. SagittalT1, sagittal T2, sagittal STIR, axial 3-D cosmic, axial T2 gradient echo,axial T2 sequences. COMPARISON: None. FINDINGS: The cerebellar tonsils are normal in position. The cervical spinal cord isnormal in morphology. Findings of posterior decompression with posterior fusion hardware C3- C6.Cervical vertebrae are normal in height and alignment. There is no bonemarrow edema or fracture. Fatty endplate signal changes are seen at C3-G2rjiqd there is moderate loss of disc height. Mild disc degeneration at theother levels with minimal or no loss of disc height. There is no disc herniation or canal stenosis in the cervical spine. Thefusion hardware C3 through C6 results in significant artifact, such thatdetailed evaluation of the neural foramen is limited. There is likelymoderate foraminal stenosis bilaterally at C3-C4, C4-C5 and C5-C6, mild tomoderate neuroforaminal stenosis at C6-C7. The neural foraminal stenosisis secondary to proliferative bony changes at the facet joints anduncovertebral spurring. There is no prevertebral soft tissue signal abnormality. There is lineardark signal scarring in the subcutaneous fat superficial to the spinousprocesses C3-C6. There is posterior paraspinous muscular atrophy. IMPRESSION: 1. Posterior fusion hardware spanning C3-C6. Normal cervical spinealignment. 2. No disc herniation or significant canal stenosis in the cervicalspine. 3. With the artifact from the hardware, limited evaluation of the neuralforamen. There is likely moderate foraminal stenosis bilaterally C3-C4,C4-C5 and C5-C6 and mild to moderate bilateral neural foraminal stenosisat C6-C7. POS [id number] us Sandeep A Bigda DO IMG MR XSPECIALTY Final Result documented in this encounter Visit Diagnoses Diagnosis Spinal stenosis in cervical region- Primary Spinal stenosis in cervical region documented in this encounter Additional Health Concerns Infection Onset Date Last Indicated Resolved Time CDiff-Risk 02/21/2024 02/21/2024 02/21/2024 5:02 PM EDT documented as of this encounter Care Teams Entry Examiner Relationship Specialty Start Date End Date SaiSandeep kat DO [email or web address] PCP - General Internal Medicine 09/16/17 documented as of this encounter Additional Source Comments The information contained in this document represents components of the legal health record. It is not the complete legal health record.[facility]
--- OUTSIDE RECORDS SUMMARY | 2025-07-08 20:10 | XMS_ITS | Encounter Summary ---
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 Social History Tobacco Use Types Packs/Day Years Used Date Smoking Tobacco: Never Assessed Sex and Gender Information Value Date Recorded Sex Assigned at Not on file Legal Sex Male 10:02 PM EDT Gender Identity Not on file Sexual Orientation Not on file documented as of this encounter Plan of Treatment Not on file documented as of this encounter Visit Diagnoses Diagnosis Ataxic gait Abnormality of gait 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 It is not the complete legal health record.[facility]
--- OUTSIDE RECORDS SUMMARY | 2025-07-08 20:10 | XMS_ITS | Encounter Summary ---
Author Organization [facility] Address [address] [address] Phone Care Team Providers Care Mental Health Associate Name Role Phone Sandeep Preston DO Primary Care Provider [phone] Encounter Details Date Type Department Care Team ([facility] st Contact Info) Description 01/22/2024 Transcribe Orders Virtual Department [address] [place] [address] Sandeep Preston DO [address] [facility] [place] [address] [place] [address] [email or web address] LLQ pain (Primary Dx) Social History Tobacco Use Types Packs/Day Years Used Date Smoking Tobacco: Never Assessed Education Answer Date Recorded Are you interested in more education? Not on abdi e 03/08/2023 Are you concerned about learning? Not on file 03/08/2023 No 03/08/2023 No 03/08/2023 Digital Access Answer Date Recorded No 04/08/2023 No 04/08/2023 Reliable internet access at home? Not on file 04/08/2023 Device with a working camera? Not on file Sex and Gender Information Value Date Recorded Sex Assigned at Not on file Legal Sex Male 10:02 PM EDT Gender Identity Not on file Sexual Orientation Not on file documented as of this encounter Plan of Treatment Not on file documented as of this encounter Visit Diagnoses Diagnosis LLQ pain- Primary Abdominal pain, left lower quadrant documented in this encounter Additional Health Concerns Infection Onset Date Last Indicated Resolved Time CDiff-Risk 02/21/2024 02/21/2024 02/21/2024 5:02 PM EDT documented as of this encounter Care Teams Mental Health Associate Relationship Specialty Start Date End Date KarySandeep DO Scarlet [email or web address] PCP - General Internal Medicine 09/16/17 documented as of this encounter Additional Source Comments The information contained in this document represents components of the legal health record. It is not the complete legal health record.[facility]
--- OUTSIDE RECORDS SUMMARY | 2025-07-08 20:10 | XMS_ITS | Encounter Summary ---
Author Organization [facility] Address [address] [address] Phone Care Team Providers Care Heavy Mobile Equipment Repairer Name Role Phone Sandeep Preston Primary Care Provider [phone] Reason for Referral * MRI/CAT Scan - Closed Specialty Diagnoses / Procedures Referred By Contac t Referred To Contact Radiology Diagnoses Arthrodesis present Chronic low back pain, unspecified back pain laterality, with sciatica presence unspecified Procedures CT Lumbar Spine Sandeep Fernandez PA Phone: tel: fax: mailto:[email or web address] Referral ID Status Reason Start Date Expiration Date Visits Re quested Visits Authorized [id number] Closed 09/16/2017 09/16/2018 1 1 Encounter Details Date Type Department Care Team (Late st Contact Info) Description 09/16/2017 Ancillary Orders Virtual Department [address] [place] [address] Sandeep Fernandez PA [address] [place] [address] [email or web address] Arthrodesis present; Chronic low back pain, unspecified back pain laterality, with sciatica presence unspecified Social History Tobacco Use Types Packs/Day Years Used Date Smoking Tobacco: Never Assessed Sex and Gender Information Value Date Recorded Sex Assigned at Not on file Legal Sex Male 10:02 PM EDT Gender Identity Not on file Sexual Orientation Not on file documented as of this encounter Plan of Treatment Not on file documented as of this encounter Results * CT LUMBAR SPINE WITHOUT CONTRAST (09/23/2017 2:23 PM EST) Anatomical Region Laterality Modality L-spine Computed Tomogra phy 09/23/2017 2:33 PM EST Impressions 09/23/2017 2:42 PM EST Lumbar spondylosis with predominant facet arthropathy with post surgical changes evident at L5-S1. Mild relative neural canal narrowing evident at L3-4 and L4-5. The left neural foramen at L5 is S1 is compromised by spurring and possible postsurgical change. TOTAL CTDIvol: 43.30 mGy S/S: Arthrodesis L5-S1, low back pain, lumbar spondylosis. . POS - [id number] Narrative 09/23/2017 2:42 PM EST COMPARISON: Lumbar spine x-rays 09/03/2016 and MRI lumbar spine 05/29/2016 TECHNIQUE: Unenhanced CT lumbar spine. Axial and off oblique axial images are obtained. Sagittal and coronal reformats generated. Automated exposure control utilized. FINDINGS: There is relative preservation of disc space height with postsurgical changes evident at L5-S1 with intervertebral disc surgery. Diffuse endplate spurring is noted with no acute compression fracture seen. At L1-2 there is facet arthropathy without disc protrusion or spinal stenosis seen. The neuroforamen are patent. At L2-3 mild facet arthropathy is evident. No definitive disc protrusion or spinal stenosis is seen. The neuroforamen are patent. At L3-4 there is a broad-based disc bulge without disc protrusion the neural canal is narrowed to a diameter of 7 mm. Moderate facet arthropathy is present. The neural foramen are patent. At L4-5 there is facet arthropathy with a disc bulge to the right evident. The neural canal is narrowed to a diameter of 8 mm. The neuroforamen are patent. There are postsurgical changes with prior arthrodesis at L5-S1. Bulge of density is evident to the left causing left foraminal and left lateral recess impingement. The right foramen is patent. No spinal stenosis is seen. Procedure Note Blair Hernandez MD - 09/23/2017 COMPARISON: Lumbar spine x-rays 09/03/2016 and MRI lumbar spine05/29/2016 TECHNIQUE: Unenhanced CT lumbar spine. Axial and off oblique axial imagesare obtained. Sagittal and coronal reformats generated. Automatedexposure control utilized. FINDINGS: There is relative preservation of disc space height with postsurgicalchanges evident at L5-S1 with intervertebral disc surgery. Diffuse endplate spurring is noted with no acute compression fractureseen. At L1-2 there is facet arthropathy without disc protrusion or spinalstenosis seen. The neuroforamen are patent. At L2-3 mild facet arthropathy is evident. No definitive disc protrusionor spinal stenosis is seen. The neuroforamen are patent. At L3-4 there is a broad-based disc bulge without disc protrusion theneural canal is narrowed to a diameter of 7 mm. Moderate facet arthropathyis present. The neural foramen are patent. At L4-5 there is facet arthropathy with a disc bulge to the right evident.The neural canal is narrowed to a diameter of 8 mm. The neuroforamen arepatent. There are postsurgical changes with prior arthrodesis at L5-S1. Bulge ofdensity is evident to the left causing left foraminal and left lateralrecess impingement. The right foramen is patent. No spinal stenosis isseen. IMPRESSION: Lumbar spondylosis with predominant facet arthropathy with post surgicalchanges evident at L5-S1. Mild relative neural canal narrowing evident atL3-4 and L4-5. The left neural foramen at L5 is S1 is compromised byspurring and possible postsurgical change. TOTAL CTDIvol: 43.30 mGy S/S: Arthrodesis L5-S1, low back pain, lumbar spondylosis. . POS - [id number] Sandeep HERNANDEZ CT XSPECIALTY ORDERABLE S Final Result documented in this encounter Visit Diagnoses Diagnosis Arthrodesis present Chronic low back pain, unspecified back pain laterality, with sciatica presence unspecified Arthrodesis present Chronic low back pain, unspecified back pain laterality, with sciatica presence unspecified documented in this encounter Additional Health Concerns Infection Onset Date Last Indicated Resolved Time CDiff-Risk 02/21/2024 02/21/2024 02/21/2024 5:02 PM EDT documented as of this encounter Care Teams Heavy Mobile Equipment Repairer Relationship Specialty Start Date End Date Sandeep Preston DO [email or web address] PCP - General Internal Medicine 09/16/17 documented as of this encounter Additional Source Comments The information contained in this document represents components of the legal health record. It is not the complete legal health record.[facility]
--- OUTSIDE RECORDS SUMMARY | 2025-07-08 20:10 | XMS_ITS | Encounter Summary ---
Author Organization [facility] Address [address] [address] Phone Care Team Providers Care Ironworker Apprentice Shop Name Role Phone Sandeep Preston DO Primary Care Provider [phone] Encounter Details Date Type Department Care Team (Late st Contact Info) Description 09/16/2017 Procedure Pass [facility], Ct Scan - [address] [address] Social History Tobacco Use Types Packs/Day Years [...] documented as of this encounter Care Teams Ironworker Apprentice Shop Relationship Specialty Start Date End Date Sandeep Preston DO PCP - General Internal Medicine 09/16/17 documented as of this encounter Additional Source Comments The information contained in this document represents components of the legal health record. It is not the complete legal health record.[facility]
--- OUTSIDE RECORDS SUMMARY | 2025-07-08 20:10 | XMS_ITS | Encounter Summary ---
Author Organization [facility] Address [address] [address] Phone Care Team Providers Care Auto Parts Clerk Name Role Phone Sandeep Preston DO Primary Care Provider [phone] Encounter Details Date Type Department Care Team (Latest Contact Info) Description 10/22/2019 Transcribe Orders [facility] [address] [place] [phone] Jose Guadalupe Llanos MD [address] [place] [address], [address] [address] [email or web address] Mixed erectile dysfunction (Primary Dx); Enlarged prostate with urinary obstruction Social History Tobacco Use Types Packs/Day Years Used Date Smoking Tobacco: Never Assessed Sex and Gender Information Value Date Recorded Sex Assigned at Not on file Legal Sex Male 10:02 PM EDT Gender Identity Not on file Sexual Orientation Not on file documented as of this encounter Plan of Treatment Not on file documented as of this encounter Results * (ABNORMAL) Testosterone, total and free (10/22/2019 10:53 AM EST) FREE TESTOSTERONE 5.27 3.47 - 13.0 ng/dL [facility] Comment: (NOTE) ADDITIONAL INFORMATION Testing performed by [facility]. This test was developed and its performance characteristics determined by [facility] in a manner consistent with CLIA requirements. This test has not been cleared or approved by the U.S. Food and Drug Administration. TESTOSTERONE, TOTAL 229(L) 240 - 950 ng/dL [facility] Comment: (NOTE) ADDITIONAL INFORMATION Testing performed by Liquid Chromatography-Tandem Mass Spectrometry (LC-MS/MS). This test was developed and its performance characteristics determined by [facility] in a manner consistent with CLIA requirements. This test has not been cleared or approved by the U.S. Food and Drug Administration. Blood 10/22/2019 10:5 3 AM EST 10/22/2019 11:22 AM EST Jose Guadalupe Llanos MD LAB BLOOD ORDERABLES Final Res ult Performing Organization Address City/[facility] Co de Phone Number [facility] [address] [address] [place] [address] * PSA (screening) (10/22/2019 10:53 AM EST) PSA 1.55 0 - 4.00 ng/mL [facility] Blood 10/22/2019 10:5 3 AM EST 10/22/2019 11:23 AM EST Jose Guadalupe Llanos MD LAB BLOOD ORDERABLES Final Res ult Performing Organization Address City/[facility] Co de Phone Number [address] [address] documented in this encounter Visit Diagnoses Diagnosis Mixed erectile dysfunction- Primary Enlarged prostate with urinary obstruction Hypertrophy of prostate with urinary obstruction and other lower urinary tract symptoms (LUTS) documented in this encounter Additional Health Concerns Infection Onset Date Last Indicated Resolved Time CDiff-Risk 02/21/2024 02/21/2024 02/21/2024 5:02 PM EDT documented as of this encounter Care Teams Auto Parts Clerk Relationship Specialty Start Date End Date Sandeep Preston DO PCP - General Internal Medicine 09/16/17 documented as of this encounter Additional Source Comments The information contained in this document represents components of the legal health record. It is not the complete legal health record.[facility]
--- OUTSIDE RECORDS SUMMARY | 2025-07-08 20:10 | XMS_ITS | Encounter Summary ---
Author Organization [facility] Address [address] [address] Phone Care Team Providers Care Telecom Field Technician Name Role Phone Sandeep Preston Primary Care Provider [phone] Encounter Details Date Type Department Care Team (Late st Contact Info) Description 02/21/2024 Procedure Pass [facility] Admitting Dept Virtual Department [address] [place] [address] Social History Tobacco Use Types Packs/Day Years [...] documented as of this encounter Care Teams Telecom Field Technician Relationship Specialty Start Date End Date Sandeep Preston DO [email or web address] PCP - General Internal Medicine 09/16/17 documented as of this encounter Additional Source Comments The information contained in this document represents components of the legal health record. It is not the complete legal health record.[facility]
== END 2025-07-08 20:09 | disposition home or self-care (01) ==
LOC: HO.MRI 20:08
PROVIDERS: PCP Internal Medicine; Visit Provider Internal Medicine
DX: S46.212A Strain of muscle, fascia and tendon of other parts of biceps, left arm, initial encounter (principal)
CPT/HCPCS: 73221

== ENCOUNTER → 2025-07-08 20:10 | Outpatient (BNV) | payer MEDICARE, SELFPAY | PROVIDERS: PCP Internal Medicine; Visit Provider Radiology Diagnostic Radiology | DX: M75.122 Complete rotator cuff tear or rupture of left shoulder, not specified as traumatic (principal) | CPT/HCPCS: 73221 ==

== ENCOUNTER 2025-10-11 11:20 | Outpatient (REF) | payer MEDICARE, SELFPAY ==
--- OUTSIDE RECORDS SUMMARY | 2024-08-03 11:13 | XMS_ITS | Encounter Summary ---
Author Organization [facility] Address [address] [place] [address] Phone Care Team Providers Care Sole Leveling Machine Operator Name Role Phone Sandeep Preston Primary Care Provider [phone] Encounter Details Date Type Department Care Team (Late st Contact Info) Description 08/03/2024 12:13 PM EDT Hospital Encounter [facility] [address] [place] [phone] Adelia Jay FNP [address] [place] [id number] [email or web address] Social History Tobacco Use Types Packs/Day Years Used Date Smoking Tobacco: Never Smokeless Tobacco: Never Alcohol Use Standard Drinks/Week Comments Not Currently 0 (1 standard drink = 0.6 oz pur e alcohol) Education Answer Date Recorded Are you interested in more education? Not on abdi e 03/08/2023 Are you concerned about learning? Not on file 03/08/2023 No 03/08/2023 No 03/08/2023 Digital Access Answer Date Recorded No 04/08/2023 No 04/08/2023 Reliable internet access at home? Not on file 04/08/2023 Device with a working camera? Not on file Intimate Partner Violence Answer Date R ecorded Are you denied basic needs s uch as food, clothing, or medical care? No 02/21/2024 In the past 12 months have y ou been in a relationship with a person who hurts, threatens, or tries to control you? No 02/21/2024 Are you denied basic needs s uch as food, clothing, or medical care? No 02/21/2024 In the past 12 months have y ou been in a relationship with a person who hurts, threatens, or tries to control you? No 02/21/2024 Sex and Gender Information Value Date Recorded Sex Assigned at Not on file Legal Sex Male 10:02 PM EDT Gender Identity Not on file Sexual Orientation Not on file documented as of this encounter Plan of Treatment Not on file documented as of this encounter Procedures Procedure Name Priority Date/Time Associated Diagnosis Comments XR WRIST 3 OR MORE VIEWS (LEFT) Urgent/patient waiting 08/03/2024 12:18 PM EDT Sprain of left wrist, initial encounter documented in this encounter Results * XR WRIST 3 OR MORE VIEWS (LEFT) (08/03/2024 12:18 PM EDT) Anatomical Region Laterality Modality Wrist Left Computed Radiogr aphy 08/03/2024 12:5 4 PM EDT Impressions 08/03/2024 12:55 PM EDT No fracture or dislocation. Narrative 08/03/2024 12:55 PM EDT XR WRIST 3 OR MORE VIEWS (LEFT) Referring clinician's provided indication for this examination in Epic: Pain; pain dorsal aspect mid left wrist for 2 days without injury. mild swelling. COMPARISON: None FINDINGS: No fracture. Normal alignment. Mild soft tissue swelling over the dorsum of the wrist. 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 Mild degenerative changes at the base of the thumb. Procedure Note Panchito Charles MD, PhD - 08/03/2024 XR WRIST 3 OR MORE VIEWS (LEFT) Referring clinician's provided indication for this examination in [facility]:Pain; pain dorsal aspect mid left wrist for 2 days without injury. mildswelling. COMPARISON: None FINDINGS: No fracture. Normal alignment. Mild soft tissue swelling over the dorsumof the wrist. Chondrocalcinosis of the triangular fibrocartilage complexand the radiocarpal joint. Mild degenerative changes at the base of thethumb. IMPRESSION: No fracture or dislocation. Adelia Jay CLINICAL ACCOUNT SPECIALIST IMG XR UPPER EXTREMITY Prudence l Result documented in this encounter Visit Diagnoses Not on filedocumented in this encounter Care Teams Sole Leveling Machine Operator Relationship Specialty Start Date End Date Sandeep Preston DO [email or web address] PCP - General Internal Medicine 09/16/17 documented as of this encounter Additional Source Comments The information contained in this document represents components of the legal health record. It is not the complete legal health record.[facility]
[2025-10-11 13:19] LABS: MANUAL DIFF FLAG NO
[2025-10-11 13:33] LABS: Hematocrit 37.9 % (42.0-52.0); Hemoglobin 12.8 g/dl (14.0-18.0); Imm Gran Abs Auto 0.05 X10*3/uL (0.00-0.03); Imm Gran Pct Auto 0.5 % (0.0-0.4); Lymphocytes Absolute Auto 1.1 X10*3/uL (1.2-4.9); Mean Corpuscular HGB Conc 33.8 g/dl (31.0-36.0); Mean Corpuscular Hemoglobin 31.4 pg (27.0-33.0); Mean Corpuscular Volume 93.1 fL (80.0-98.0); NRBC Abs Auto 0.000 X10*3/uL (0.0-0.012); NRBC Pct Auto 0.0 /100WBC (0.0-0.2); Platelet Count 387 X10*3/uL (160-400); Red Blood Count 4.07 X10*6/uL (4.60-5.80); White Blood Count 10.2 X10*3/uL (4.8-10.8)
[2025-10-11 13:50] LABS: Alanine Aminotransferase 25 U/L (0-40); Albumin Level 4.3 g/dL (3.5-5.0); Alkaline Phosphatase 87 U/L (39-117); Anion Gap 13 (12-20); Aspartate Amino Transferase 30 U/L (5-37); Blood Urea Nitrogen 20 mg/dL (9-16); Calcium 9.3 mg/dL (8.4-10.2); Carbon Dioxide 25 mmol/L (22-29); Chloride 103 mmol/L (96-108); Cholesterol 146 mg/dL (<200); Estimated Glomerular Filt Rate > 60; HDL Cholesterol 64 mg/dL (>40); Potassium 4.2 mmol/L (3.3-5.1); Sodium 137 mmol/L (135-145); Total Protein 6.8 g/dL (6.5-8.0); Triglycerides 193 mg/dL (<150)
[2025-10-11 14:14] LABS: Prostate Specific Antigen 1.99 ng/mL (<0.05-4.0)
--- OUTSIDE RECORDS SUMMARY | 2025-10-11 14:53 | XMS_ITS | Encounter Summary ---
Author Organization [facility] Address [address] [facility] [address] [place] [address] Phone Care Team Providers Care Film Or Videotape Editor Name Role Phone Sandeep Preston DO Primary Care Provider [phone] Encounter Details Date Type Department Care Team (Late st Contact Info) Description 05/02/2020 Ancillary Orders Virtual Department [address] [place] [address] Zhao Villanueva MD [address] [facility] [address] [place] [address] [email or web address] Ataxic gait; Benign neoplasm of other parts [...] documented as of this encounter Care Teams Film Or Videotape Editor Relationship Specialty Start Date End Date Sandeep Preston DO [email or web address] PCP - General Internal Medicine 11/6/17 documented as of this encounter Additional Source Comments The information contained in this document represents components of the legal health record. It is not the complete legal health record.[facility]
--- OUTSIDE RECORDS SUMMARY | 2025-10-11 14:53 | XMS_ITS | Encounter Summary ---
Author Organization [facility] Address [address] [address] Phone Care Team Providers Care Doffer Name Role Phone Sandeep Preston DO Primary Care Provider [phone] Encounter Details Date Type Department Care Team ([facility] st Contact Info) Description 01/30/2021 Transcribe Orders Virtual Department [address] [place] [address] Sandeep Preston DO [address] [facility] [place] [address] Encounter for abdominal aortic aneurysm screening (Primary [...] documented as of this encounter Care Teams Doffer Relationship Specialty Start Date End Date Sandeep Preston DO PCP - General Internal Medicine 09/16/17 documented as of this encounter Additional Source Comments The information contained in this document represents components of the legal health record. It is not the complete legal health record.[facility]
--- OUTSIDE RECORDS SUMMARY | 2025-10-11 14:53 | XMS_ITS | Encounter Summary ---
Author Organization [facility] Address [address] [address] Phone Care Team Providers Care Dry Heat Cabinet Attendant Name Role Phone Sandeep Preston Primary Care Provider [phone] Reason for Referral * MRI/CAT Scan - Closed Specialty Diagnoses / Procedures Referred By Contac t Referred To Contact Radiology Diagnoses Arthrodesis present Chronic low back pain, unspecified back pain laterality, with sciatica presence unspecified Procedures CT Lumbar Spine Sandeep Fernandez PA Phone: tel: fax: [email or web address] Referral ID Status Reason Start Date Expiration Date Visits Re quested Visits Authorized [id number] Closed 09/16/2017 09/16/2018 1 1 Encounter Details Date Type Department Care Team (Late st Contact Info) Description 09/16/2017 Ancillary Orders Virtual Department [address] [place] [address] Sandeep Fernandez PA [address] [place] [address] [email or web address] Arthrodesis present; Chronic low back pain, unspecified [...] back pain, lumbar spondylosis. . POS - [id number] Narrative 09/23/2017 2:42 PM EST COMPARISON: Lumbar [...] back pain, lumbar spondylosis. . POS - [id number] Sandeep HERNANDEZ CT XSPECIALTY ORDERABLE S Final [...] documented as of this encounter Care Teams Dry Heat Cabinet Attendant Relationship Specialty Start Date End Date Sandeep Preston DO [email or web address] PCP - General Internal Medicine 09/16/17 documented as of this encounter Additional Source Comments The information contained in this document represents components of the legal health record. It is not the complete legal health record.[facility]
--- OUTSIDE RECORDS SUMMARY | 2025-10-11 14:53 | XMS_ITS | Encounter Summary ---
Author Organization [facility] Address [address] [address] Phone Care Team Providers Care Network Engineer Administrator Name Role Phone Sandeep Preston DO Primary Care Provider [phone] Encounter Details Date Type Department Care Team (Late st Contact Info) Description 09/16/2017 Procedure Pass [facility], Ct Scan - [address] [address] Social History Tobacco Use Types Packs/Day Years [...] documented as of this encounter Care Teams Network Engineer Administrator Relationship Specialty Start Date End Date Sandeep Preston DO PCP - General Internal Medicine 09/16/17 documented as of this encounter Additional Source Comments The information contained in this document represents components of the legal health record. It is not the complete legal health record.[facility]
--- OUTSIDE RECORDS SUMMARY | 2025-10-11 14:53 | XMS_ITS | Encounter Summary ---
Author Organization [facility] Address [address] [address] Phone Care Team Providers Care Farm Machine Operator Name Role Phone Sandeep Preston DO Primary Care Provider [phone] Reason for Referral * MRI/CAT Scan - Closed Specialty Diagnoses / Procedures Referred By Contac t Referred To Contact Radiology Diagnoses Spinal stenosis in cervical region Procedures MRI Cervical Spine Sandeep Preston DO Phone: tel: fax: [email or web address] Referral ID Status Reason Start Date Expiration Date Visits Re quested Visits Authorized [id number] Closed 03/02/2019 03/01/2020 1 1 Encounter Details Date Type Department Care Team (Late st Contact Info) Description 03/02/2019 Transcribe Orders Virtual Department [address] [place] [address] Sandeep Preston DO [address] [facility] [place] [address] [email or web address] Spinal stenosis in cervical region (Primary Dx) [...] Fatty endplate signal changes are seen at [id number] there is moderate loss of disc height. [...] documented as of this encounter Care Teams Farm Machine Operator Relationship Specialty Start Date End Date SaiSandeep kat DO [email or web address] PCP - General Internal Medicine 09/16/17 documented as of this encounter Additional Source Comments The information contained in this document represents components of the legal health record. It is not the complete legal health record.[facility]
--- OUTSIDE RECORDS SUMMARY | 2025-10-11 14:53 | XMS_ITS | Data Portability ---
Author Organization [facility], Telehealth Patient Home Address [address] [place] [address] Assessment Encounter Date Assessment Date Assessment LastModified by Organization Details LastModified Time 04/24/2024 04/24/2024 [id number] [place] [address] (SENIOR SOUS CHEF) [facility] MODERATE MUST MEET 2 OUT OF 3 [...] COVERED Not available 04/24/2024 12:22:48 08/10/2024 08/10/2024 [id number] [place] [address] (SENIOR SOUS CHEF) [facility] MODERATE MUST MEET 2 OUT OF 3 [...] COVERED Not available 08/10/2024 15:16:40 12/04/2024 12/04/2024 [address] [place] [address] (SENIOR SOUS CHEF) [facility] MODERATE MUST MEET 2 OUT OF [...] COVERED Not available 12/04/2024 10:02:39 02/17/2025 02/17/2025 [id number] [place] [address] (SENIOR SOUS CHEF) [facility] MODERATE MUST MEET 2 OUT OF [...] Time Details Appointments FOLLOW UP 15 2024 02:00P M DR DUMONT Not available Not available Not available Lab hemoglobi n A1c, QN, blood 2024 025 [facility], [address] [place] [address], [id number], 05/31/2025 11:18:52 PSA, serum or plasma 2024 025 [facility], [address] [place] [address], [id number], 05/31/2025 11:18:52 lipid panel, blood 2024 025 [facility], [address] [place] [address], [id number], 06/02/2025 12:41:30 hemoglobi n, gastroint estinal, stool 2024 025 [facility], [address] [place] [address], [id number], 05/31/2025 11:18:52 CBC w/ auto diff 2024 025 [facility], [address] [place] [address], [id number], 06/02/2025 12:41:30 CMP, serum or plasma 2024 025 [facility], [address] [place] [address], [id number], 06/02/2025 12:41:30 HbA1c (hemoglob in A1c), blood 2024 025 [facility], [address] [place] [address], [id number], 06/02/2025 12:41:30 CMP, serum or plasma 2024 025 [facility], [address] [place] [address], [id number], 02/17/2025 12:22:51 CBC w/ diff 2024 025 [facility], [address] [place] [address], [id number], 02/17/2025 12:22:50 PSA, serum or plasma 2024 025 [facility], [address] [place] [address], [id number], 02/17/2025 12:22:50 lipid panel, blood 2024 025 [facility], [address] [place] [address], [id number], 02/17/2025 12:22:50 HbA1c (hemoglob in A1c), blood 2024 025 [facility], [address] [place] [address], [id number], 12/11/2024 12:45:10 CMP, serum or plasma 2024 025 [facility], [address] [place] [address], [id number], 12/04/2024 10:09:59 HbA1c (hemoglob in A1c), blood 2024 025 [facility], [address] [place] [address], [id number], 12/11/2024 12:45:10 Referral None recorded. Procedures None recorded. Surgeries None recorded. Imaging None recorded. Medication Orders naltrexon e 4.5 mg capsule 2023 024 [facility], [address] [place] [address], [address], [place], [address], 08/10/2024 15:28:07 naltrexon e 1.5 mg capsule 2023 024 [id number], [address], [place], [id number], 08/10/2024 15:23:25 Patient TargetsNo targets recorded. Patient Instructions Encounter Date Encounter Id Patient Instructions Last Modified By Organization Details Last Modified Time 04/24/2024 [id number] learning about type 1 diabetes Not available 04/24/2024 12:23:38 type 1 diabetes: care instructions Not available 04/24/2024 12:23:38 abdominal pain: care instructions Not available 04/24/2024 12:23:38 12/04/2024 [id number] irritable bowel syndrome: care instructions Not available 12/04/2024 10:05:33 learning about type 1 diabetes Not available 12/04/2024 10:05:33 type 1 diabetes: care instructions Not available 12/04/2024 10:05:33 05/31/2025 [id number] advance care planning: care instructions Not available 05/31/2025 11:08:44 Discussed and explained advance directives such as standard forms to the patient. Face to face discussion lasted for a duration of __30_ minutes. Not available 05/31/2025 11:09:31 Reason for Referral None Reported. Results Created Date Observation Date Name Description Value Unit Range Abnormal Flag Note LastModifiedBy Organization Detail LastModifiedTime 07/09/2007/08/2025 MRI, shoul isidoro, w/o contr ast No observ ation record ed. [facility] (Medical Records) [address] [place], [address], 07/13/2025 23:29:13 Result Notes None recorded. Problems Name Problem SNOMED Code Status Onset Date Resolution Date Notes Provider Name and Address Organization Details Recorded Time Hyperten sive disorder 73153553 Active 2018 Not Available [facility] 12:53:16 Raynaud' s disease 597385215 Active 2018 Not Available [facility] 3 12:53:16 Hypercho lesterol emia 95691950 Active 2018 Not Available [facility] 3 12:53:16 Irritabl e bowel syndrome 86042535 Active 2018 Not Available [facility] 3 12:53:15 Gastroes ophageal reflux disease 876371572 Active 2018 Not Available [facility] 3 12:53:16 Osteoart hritis 006901151 Active 2018 shoulder Not Available [facility] 3 12:53:16 Type 1 diabetes mellitus 56407517 Active 2018 RADHA DE LUNA, RAPHAEL [address] [place], [address], [facility] 5 10:28:06 Spinal stenosis in cervical region 88276931 Completed 201803/23/2019 Sandeep Dumont DO [address] [place], [address], [facility] 9 16:22:56 Spinal stenosis of lumbar region 47527264 Active 2018 Not Available [facility] 3 12:53:16 Degenera tion of interver tebral disc 88502015 Active 2018 Not Available [facility] 3 12:53:16 Rhinophy ak 59946728 Active 2018 Not Available [facility] 3 12:53:16 Allergic rhinitis 54192151 Active 2018 Not Available [facility] 3 12:53:16 Mood disorder 35695923 Active 2018 affectiv e disorder Not Available [facility] 3 12:53:16 Harmful pattern of use of alcohol 41624901 Active 2018 Not Available [facility] 3 12:53:16 Tinnitus of right ear 0795394051 108 Active 2018 Not Available [facility] 3 12:53:16 Papillom a 846716957 Active 2021 Not Available [facility] 3 12:53:16 Trochant ann bursitis of left hip 1203628958 46982 Active 2021 Not Available [facility] 3 12:53:16 Cramp in lower limb 034559044 Active 2021 Not Available [facility] 3 12:53:16 COVID-19 722733652 Active 2021Oct 2022 Not Available [facility] 3 12:53:16 Acute bronchit is 54161510 Active 2021 Not Available [facility] 3 12:53:15 Atypical chest pain 702825334 Active 2022 Not Available [facility] 3 12:53:15 Dyspnea 770322250 Active 2022 Not Available [facility] 3 12:53:16 Post-acu te COVID-19 7044988428 Active 2022 Not Available [facility] 3 12:53:15 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 0295230211 Active 2022 Not Available [facility] 3 12:53:15 Irritabl e bowel syndrome with diarrhea 465506331 Active 2022 Not Available [facility] 3 12:53:16 Mild neurocog nitive disorder 494321829 Active 2022 Not Available [facility] 3 12:53:16 Tinnitus 11650231 Active 2022 Not Available [facility] 3 12:53:16 Tinnitus 42594411 Active 2022 Not Available [facility] 3 12:53:16 Diabetic peripher al neuropat hy 303548239 Active 2022 Not Available [facility] 3 12:53:16 Left lower quadrant pain 388330921 Active 2023 Sandeep Dumont DO [address] [place], [address], [facility] 4 09:33:43 Depressi ve disorder 30071337 Active 2023 Sandeep Dumont DO [address] [place], [address], [facility] Internal [facility] 4 09:36:34 Injury of biceps brachii muscle 755499483 Active 2024 Sandeep Dumont DO [address] [place] [address], [address], [facility] Internal [facility] 5 14:44:42 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 Medical Equipment None Reported. Allergies Allergen ID Allergen Name Allergen Category Reaction Reaction Severity Criticality Documentation Date Start Date Code Code System Note Provider Name and Address Organization Details Recorded Time 2722 diclofena c Not available Not available Not available Not available 12/02/2018 3355 [facility] 9 16:13:45 2725 Non-stero idal anti-infl ammatory agent (substanc e) medicatio n Not available Not available Not available 12/03/2018 80689 5008 SNOMED IBS acts up [facility] 9 13:50:35 7934 Substance with morphinan structure and opioid receptor agonist mechanism of action (substanc e) medicatio n itching Not available high 02/12/2024 79074 9000 SNOMED [facility] 4 11:19:26 8695 lisinopri l medicatio n angioedem a Not available high 12/04/2024 28668 RxNorm Sandeep Dumont, DO [address] [place] [address], [address], [facility] Internal [facility] 5 09:59:04 9586 codeine medicatio n Not available Not available Not available 09/24/2025 2670 RxNorm Not Available ketty - External [facility] - prod 5 16:19:51 9587 Substance with opioid receptor agonist mechanism of action (substanc e) medicatio n Not available Not available Not available 09/24/2025 46304 2006 SNOMED Not Available ketty - External [employer] - prod 16:19:51 9588 morphine medicatio n Not available Not available Not available 09/24/20252023 7052 RxNorm Not Available ketty - External [employer] - prod 16:20:58 Medications Name Sig Start Date Stop Date [...] completed Not Available Not Available Not Available metformin 500 mg tablet TAKE 1 TABLET BY MOUTH TWICE DAILY active Not Available Not Available No t Available bupropion HCl SR 150 mg tablet,12 [...] Not Available Not Available Not Avai lable sildenafil 50 mg tablet TAKE 1 TABLET [...] Not Available Not Available Not Avai lable betamethaso ne dipropionat e 0.05 % topical [...] Solostar U-100 Insulin 100 unit/mL (3 mL) [facility] 05/30 completed Not Available Not [...] U-300 SoloStar 300 unit/mL (3 mL) subcutane s insulin pen ADMINISTE R 30 UNITS [...] (BMI) Body weight Heart rate Oxygen saturation Systolic And Diastolic Provider Name and Address Organization Details Last Updated DateTime 5 177.8 cm 27.8 kg/m2 20104.9 2 g 79 /min 98 % 170/80 mm[Hg] Yasmin Verdugo [facility] 5 09:44:50 Date Recorded Body height Body mass index (BMI) Body weight Oxygen saturation Heart rate Systolic And Diastolic Provider Name and Address Organization Details Last Updated DateTime 5 177.8 cm 27.8 kg/m2 62712.9 2 g 97 % 97 /min 140/80 mm[Hg] Yasmin Verdugo [facility] 5 11:56:16 Date Recorded Body height Body mass index (BMI) Body weight Heart rate Oxygen saturation Systolic And Diastolic Provider Name and Address Organization Details Last Updated DateTime 4 177.8 cm 28 kg/m2 81899.5 1 g 60 /min 95 % 118/74 mm[Hg] Lali Dillard [facility] 4 11:49:22 Date Recorded Body height Body mass index (BMI) Body weight Oxygen saturation Heart rate Systolic And Diastolic Provider Name and Address Organization Details Last Updated DateTime 5 177.8 cm 26.8 kg/m2 69352.7 7 g 98 % 70 /min 126/72 mm[Hg] CHELY KIM [facility] 5 10:46:40 Date Recorded Systolic And Diastolic Provider Name and Address Organization Details Last Updated DateTime 08/10/2024 136/78 mm[Hg] Janet Piedra O [address] [facility], [place], [address], [facility] Internal [facility] 08/10/2024 15:13:58 Date Recorded Body height Body mass index (BMI) Body weight Heart rate Oxygen saturation Systolic And Diastolic Provider Name and Address Organization Details Last Updated DateTime 4 177.8 cm 27.5 kg/m2 26959.7 4 g 68 /min 96 % 150/80 mm[Hg] Yasmin Verdugo [facility] Internal [facility] 4 15:00:00 Social History Question Answer Notes LastModified by Organizat ion Details LastModified Time Tobacco Smoking Status Never [facility]oker [facility] 07/27/2022 09:51:02 What Was The Date Of Your Most Recent Tobacco Screening? 05/31/2025 [email or web address] Information not available 05/31/2025 Sex: Unknown Functional Status Question Answer Note LastModified by Organization D etails LastModified Time Do you or have you ever used any other forms of tobacco or nicotine? No [email or web address] Information not available 10/25/2023 Mental Status None recorded. Family History Nothing Reported. Medical History No medical history recorded. Immunizations Vaccine Type Date Status Note Provider Nam e and Address Organization Details Recorded Time COVID-19, mRNA, LNP-S, PF, 100 mcg/0.5mL dose or 50 mcg/0.25mL dose 02/03/20 21 completed Janie sadler [facility] 05/29/2021 16:46:13 Pneumococcal conjugate PCV 13 11/06/20 16 completed Janie sadler [facility] 05/29/2021 16:46:45 COVID-19, mRNA, LNP-S, PF, 100 mcg/0.5mL dose or 50 mcg/0.25mL dose 10/24/20 21 completed Janie Reyes [facility] 10/25/2021 13:53:02 Influenza, split virus, quadrivalent, preservative 08/15/20 18 completed Sandeep Dumont, DO [address] [facility], [place], [address], [place] [facility] 08/16/2018 15:23:56 zoster recombinant 03/06/20 22 [facility] 03/07/2022 13:50:21 influenza, intradermal, quadrivalent, preservative free 07/26/20 22 completed Catie sadler, [facility] 07/27/2022 09:52:42 zoster live 07/26/20 22 completed Catie sadler, [facility] 07/27/2022 09:53:06 COVID-19, mRNA, LNP-S, PF, 50 mcg/0.5 mL dose 05/23/20 22 [facility] 12/18/2022 08:13:18 COVID-19, mRNA, LNP-S, PF, 50 mcg/0.5 mL dose 08/07/20 22 [facility] 12/18/2022 08:13:25 COVID-19 Non-US Vaccine, UNSPECIFIED 09/04/20 23 completed [facility] 09/04/2023 14:09:04 influenza, unspecified formulation 09/04/20 23 completed [facility] 09/04/2023 14:09:28 influenza, unspecified formulation 10/16/20 24 completed [facility] 10/19/2024 08:03:11 SARS-COV-2 (COVID-19) vaccine, UNSPECIFIED 10/16/20 24 completed [facility] 10/19/2024 08:03:20 RSV, bivalent, protein subunit RSVpreF, diluent reconstituted, 0.5 mL, PF 08/21/20 25 completed [facility] 08/24/2025 10:13:53 pneumococcal conjugate PCV 7 08/21/20 25 completed [facility] 08/24/2025 10:14:07 pneumococcal polysaccharide PPV23 08/24/20 15 completed Naya sadler [facility] Internal [facility] 12/02/2018 16:29:19 zoster live 05/25/20 14 completed Naya sadler [facility] 12/02/2018 16:29:53 Td (adult) 06/11/20 14 completed Naya sadler [facility] 12/02/2018 16:30:23 Influenza, split virus, quadrivalent, preservative 10/09/20 19 completed Sandeep Dumont, [address], [address], [facility] Internal [facility] 10/11/2019 09:53:38 COVID-19, mRNA, LNP-S, PF, 100 mcg/0.5mL dose or 50 mcg/0.25mL dose 01/05/20 21 completed Marilyn sadler [facility] 01/27/2021 15:28:42 Past Encounters Encounter ID Performer Location Encounter Start Date Encounter Closed Date Diagnosis/Indication Diagnosis SNOMED-CT Code Diagnosis ICD10 Code Diagnosis IMO Codes Diagnosis Note [id number] Sandeep Dumont [facility] [address] [place] [address],[place] [address] 12/03/2018 13:43:00 12/03/2018 16:15:41 Type 1 diabetes mellitus 18179015 E10.9 hasn't been in quite some time last a1c 6.9 in february, retest states he usually sees , but he hasn't been here Hyperlipidemia 01501878 E78.5 on atorvatsta tin needs labs Essential hypertension 87560231 I10 on lisinopril - well controlled Gastroesop hageal reflux disease 102496263 K21.9 intermitte nt, uses omeprazole or ranitidine as needed for gerd Irritable bowel syndrome 36433793 K58.9 improves sx, but would like to increase dose for better control Osteoarthritis 937329605 M19.90 [id number] Sandeep Dumont [facility] [address] [facility],[place] [address] 03/02/2019 13:50:36 03/02/2019 14:31:02 Type 1 diabetes mellitus 32408853 E10.8 he continues to self treat does not get lab work (states he cant afford it) relates is not using insulin daily but his a1c 6.4!!!!! Hypertensive disorder 38 007387 I10 is stable now was very nervous Spinal ashok nosis of lumbar region 76172995 M48.061 will work up following his cspine eval Spinal ashok nosis in cervical region 50750492 M48.02 given onset of worsening symnptoms of arm radiculopa thy he needs an mri Rhinophyma 42916959 L71. 1 relates he is applying cortisone that he has left over from vet practice Harmful pa ttern of use of alcohol 24420526 F10.10 long discussion re need to abstain as his LFTs are a problem Benign par oxysmal positional vertigo 063967390 H81.11 will refer ent Sandeep Dumont [facility] [address] [facility],[place] [address] 03/23/2019 15:51:32 03/24/2019 08:14:00 Tinnitus of right ear 7293005684 108 H93.11 awaiting the ENT referral has been using benadryl and sudafed(sp elizabeth) to clear his ears Spinal ashok nosis in cervical region 72103808 M48.02 MRI shows that he has stable hardware and no canal stenosis but he does have foraminal encroachme nt bilat Paresthesia 12296094 R20 .2 Liver func tion tests outside reference range 066737998 R94.5 [id number] Sandeep Dumont [facility] [address] [facility],[place] [address] 06/15/2019 15:54:08 06/15/2019 16:52:06 Hypertensive disorder 34682577 I10 is stable now was very nervous Degenerati on of intervertebral disc 97318527 M51.9 will cont to treat conserv Type 1 krystal betes mellitus 99070236 E10.8 he continues to self treat does [...] Harmful pa ttern of use of alcohol 11383524 F10.10 long discussion re need to abstain as his LFTs are a problem but we can never be sure relates took some old codeine for some weight Depressive disorder 5934 9007 F32.0 will try a ssri for his depression [id number] Sandeep Dumont DO [facility] [address] [facility], [place] [address] 09/23/2019 10:43:14 09/23/2019 11:27:25 Hypertensive disorder 32198287 I10 is stable now was very nervous Type 1 krystal betes mellitus 72305842 E10.8 he continues to self treat does [...] to get last Primary er ectile dysfunction 978108466 N52.9 doing this under the guise of dr hook discussed and instructed re his questions as best that i can Rosacea 297633278 L71.9 wishes to try a topical will try to tx with lotion or gel Hernia of anterior abdominal wall 711747203 K43.9 reassuranc e call if any sudden worsening Sleep apnea 75360277 G47 .30 agrees to have this taken care of Hearing loss 29170319 H9 0.0 will order [id number] Sandeep Dumont DO [facility] [address] [facility],[place] [address] 10/23/2019 08:54:59 10/23/2019 09:19:17 Squamous cell carcinoma of upper extremity 910760834 C44.629 2 cm lesion R forearm 10 days sun exposed area Pain of le ft hip joint 2486101551 37995 M25.552 Left iliac crest pain [id number] Sandeep Dumont DO [facility] [address] [facility],[place] [address] 01/27/2021 15:15:40 01/27/2021 16:12:03 Type 1 diabetes mellitus 70149102 E10.8 a1c is 7.8 he continues to [...] well and was good Hypertensive disorder 38 034935 I10 is stable now was very nervous Hepatitis C screening 41 5043175 Z11.59 next lab ordered lab slip given Abdominal aortic aneurysm screening 024660274 Z13.6 [id number] Sandeep Dumont [facility] [address] [facility],[place] [address] 05/30/2021 13:35:15 05/30/2021 14:09:38 Hypertensive disorder 00587333 I10 is stable now Type 1 krystal betes mellitus 76783468 E10.8 a1c is 7.0 and prior was 7.8 reviewed last lab in detail relates is using insulin daily states he is checking glucose bid but when asked to see glucos says he doesnt have any results to show reccc he get a diabetic foot exam he did get an diabetic eye exam as well and was good Hypercholesterolemia 136 85125 E78.00 had stopped the statin on his own Depressive disorder 3548 9007 F32.0 not currently taking Pre-surger y evaluation 634897535 Z01.818 per the 2017 ACC (revised) cardiac risk stratifica tion he is currently considered a low risk for the proposed ENT procedure. pt understand s to hold the meloxicam but to cont his usual medication s on the day of surgery with the exception of only taking half his dose of insulin.th e night before. [id number] Sandeep Dumont [facility] [address] [facility],[place] [address] 12/01/2021 08:27:36 12/01/2021 13:39:52 Type 1 diabetes mellitus 97015400 E10.8 a1c is 7.0 and prior was 7.8 reviewed last lab in detail relates is using insulin daily states he is checking glucose bid but when asked to see glucos says he doesnt have any results to show reccc he get a diabetic foot exam he did get an diabetic eye exam as well and was good Hypertensive disorder 38 289925 I10 is stable now Gastroesop hageal reflux disease 518750123 K21.9 seems to be stable Harmful pa ttern of use of alcohol 64412308 F10.10 long discussion re need to abstain as his LFTs are a problem but we can never be sure Depressive disorder 3548 9007 F32.0 not currently taking Trochanter ic bursitis of left hip 7330607534 93046 M70.62 still having issues with this ok for him to get more active as necessusin g voltaren gel [id number] Sandeep Dumont [facility] [address] [facility] [address],[place] [address] 03/19/2022 10:11:39 03/19/2022 10:57:57 Hypercholesterolemia 06343513 E78.00 had stopped the statin on his own Hypertensive disorder 38 506074 I10 is stable now Type 1 krystal betes mellitus 64332851 E10.8 a1c is 7.3 and prior was 6.7 reviewed last lab in detail relates is using insulin daily lantus at 20 and had been doing okalso uses 5-10u of novolog with meals reccc he get a diabetic foot exam he did get an diabetic eye exam as well and was good Papilloma 870184928 D36. 9 will require yet another surgery for this in post nasopharyn xwe will have him cont with spec Trochanter ic bursitis of left hip 7095005840 10731 M70.62 still having ongoing pain and now affecting his wall\cathy and also he can no longer stand for lengths of time because of it [id number] Sandeep Dumont [facility] [address] [facility] [address],[place] [address] 07/27/2022 09:40:12 07/27/2022 10:43:08 Type 1 diabetes mellitus 78717667 E10.8 a1c is now 6.7 and is doing good 7.3 and prior was 6.7 reviewed last lab in detail relates is using insulin daily lantus at 20 and had been doing okalso uses 5-10u of novolog with meals reccc he get a diabetic foot exam he did get an diabetic eye exam as well and was good Cramp in lower limb 8829 25798 R25.2 pt will try the magnesium 400 Hypertensive disorder 38 321252 I10 is stable now and good readings at home Degenerati on of intervertebral disc 64192247 M51.9 will cont to treat conserv [id number] Sandeep Dumont [facility] [address] [facility] [address],[place] [address] 10/15/2022 14:24:52 10/15/2022 15:07:12 Hypercholesterolemia 60661853 E78.00 had stopped the statin on his own Hypertensive disorder 38 204272 I10 is stable now and good readings at home glucose readings look very good and he is actually feeling well Type 1 krystal betes mellitus 35294117 E10.8 a1c is now 6.7 and is doing good 7.3 and prior was 6.7 reviewed last lab in detail relates is using insulin daily lantus at 20 and had been doing okalso uses 5-10u of novolog with meals reccc he get a diabetic foot exam he did get an diabetic eye exam as well and was good Allergic rhinitis 652147 04 J30.9 sees juan in for the papilloma [id number] Sandeep Dumont [facility] Internal Medicine [address] [facility],[place] [address] 12/05/2022 11:28:23 12/05/2022 12:21:46 Hypertensive disorder 20443635 I10 will trial patient on clonidine QDfu in a week to recheck will also update MB Irritable bowel syndrome 90356790 K58.9 will need refills [id number] Sandeep Dumont [facility] Internal Medicine [address] [facility] [address],[place] [address] 12/18/2022 11:11:01 12/18/2022 16:11:12 Hypertensive disorder 18962775 I10 will continue the clonidine as the pt doesn't want to change medication Type 1 krystal betes mellitus 12875598 E10.8 the patient reports that he is having fluctuatio ns every other week or socan go up to 10 units [place] [address] Sandeep Dumont [facility] Internal Medicine [address] [facility] [address],[place] [address] 01/16/2023 11:31:20 01/16/2023 14:09:08 Type 1 diabetes mellitus 66470528 E10.8 a1c is up to 7.4 was [...] good (he has not) Hypertensive disorder 38 715383 I10 is stable now and good readings at home glucose readings look very good and he is actually feeling well Depressive disorder 3548 9007 F32.0 not currently taking Advance care planning 71 1699702 Z71.89 utd Screening for malignant neoplasm of colon 167082359 Z12.11 he is already on a schedule for his colonoscop y Irritable bowel syndrome 17257262 K58.9 using the dicyclomin e with good results 75969 DO [facility] [address] [facility],[place] [address] 02/20/2023 14:23:29 02/20/2023 16:05:07 Atypical chest pain 817977290 R07.89 immediatel y start ASA 325 mg Dyspnea 529012896 R06.02 ddx includes PE, angina, ACStold to report to the ER immediatel y if his symptoms worsendecl ined ER today Essential hypertension 31937767 I10 been ranging high for the past month 13234 DO [facility] [address] [facility],[place] [address] 03/20/2023 11:29:07 03/20/2023 14:03:18 Chronic bsav-BTGUS-87 syndrome 5090527724 U09.9 althoug he is somewhat improvedre lates that overall doing okand feeling betterusin g th e guaifen daily not twice ad daynow headaches are gone as well Essential hypertension 25478930 I10 home bps are notably improved now and doing good Type 1 krystal betes mellitus 99028111 E10.8 a1c is at 7.2 was at7.4 [...] well and was good (he has not) 49841 DO [facility] [address] 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 U09.9 is bothered a lot by the numerous sx for this Irritable bowel syndrome with diarrhea 113740052 K58.0 still taking his dicyclomin e again reiterated the amount of Mg+ he is taking for leg cramps is too much Mild neuro cognitive disorder 182939351 G31.84 caused by covid 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,[place] [address] 10/25/2023 11:05:20 10/25/2023 13:37:26 Essential hypertension 04731130 I10 home bps are notably improved now and doing good Hypercholesterolemia 136 89827 E78.00 had stopped the statin on his own Hypertensive disorder 38 859276 I10 is stable now and good readings at home glucose readings look very good and he is actually feeling well Type 1 krystal betes mellitus 83249546 E10.8 a1c is at 6.4 in jul [...] has not) Irritable bowel syndrome with diarrhea 257418406 K58.0 still taking his dicyclomin e but only rarely 089010 Sandeep Dumont DO [facility] Internal Medicine [address] [facility],[place] [address] 01/22/2024 08:01:29 01/22/2024 09:49:46 Left lower quadrant pain 991191554 R10.32 Hypertensive disorder 38 853005 I10 is stable now and good readings at home glucose readings look very good and he is actually feeling well Type 1 krystal betes mellitus 96970453 E10.8 a1c is at 6.4 in jul [...] was good (he has not) Depressive disorder 0775 9006 F32.0 not currently taking any med per his decision [id number] Sandeep Dumont DO [facility] Internal Medicine [address] 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,[place] [address] [facility] [place] [address] 04/24/2024 11:34:16 04/24/2024 12:38:31 Depression screening 154855025 Z13.31 SCREENING NEGATIVE Left lower quadrant pain 927331215 R10.32 this is now gone and he feels markedly better Type 1 krystal betes mellitus 04391693 E10.8 a1c is at 6.4 in jul [...] (he has not) 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 8073005239 U09.9 he is still struggling with the mentation and cognitive issueaccor tracy to the study in the brain behavioral immun health augut brain fog has cleared taking clonidine guaefensin e and lisinopril for bp will try the naltrexone 1mg daily [id number] Sandeep Dumont DO [facility] [address] [facility] [address],[place] [address] 08/10/2024 14:45:41 08/11/2024 09:29:53 Hypercholesterolemia 35418697 E78.00 had stopped the statin on his own Hypertensive disorder 38 872533 I10 is stable now and good readings at home glucose readings look very good and he is actually feeling well Type 1 krystal betes mellitus 18654316 E10.8 a1c is at7.2 was 6.8 in [...] (he has not) 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 0781898753 U09.9 he is still struggling with the mentation and cognitive issueaccor ding to the study in the brain behavioral immun health aug brain fog has cleared taking clonidine guaefensin e and lisinopril for bp will try the naltrexone 1mg daily 197778 Sandeep Dumont DO [facility] Internal Medicine [address],[place] [address] 12/04/2024 09:32:43 12/04/2024 10:13:34 Hypertensive disorder 57517721 I10 bp is elevated and not controlled Type 1 krystal betes mellitus 96113604 E10.8 a1c is pending sugars checked at [...] good (he has not) Irritable bowel syndrome 55607118 K58.9 using the dicyclomin e with good results 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 0131336562 U09.9 he is still struggling with the mentation and cognitive issuewe will see if he is a candidate for a stellate ganglion according to the study in the brain behavioral immun health aug brain fog has cleared taking clonidine guaefensin e andnaltrex one 1mg daily [id number] Sandeep Dumont, [facility] Internal Medicine [address] [facility],[place] [address] 02/17/2025 11:48:38 02/17/2025 12:27:46 Depression screening 111065874 Z13.31 SCREENING NEGATIVE Hypercholesterolemia 136 54900 E78.00 had stopped the statin on his own Hypertensive disorder 38 007154 I10 bp is elevated and not controlled Type 1 krystal betes mellitus 56736653 E10.8 a1c is pending sugars checked at [...] well and was good (he has not) [id number] Sandeep Dumont DO [facility] Internal Medicine [address] [facility],[place] [address] 05/31/2025 10:34:08 05/31/2025 11:48:39 Screening for cardiovascular system disease 936850563 Z13.6 stable Screening for malignant neoplasm of colon 308862121 Z12.11 he is already on a schedule for his colonoscop y Depression screening 171 920774 Z13.31 SCREENING NEGATIVE Hypercholesterolemia 136 29932 E78.00 had stopped the statin on his own Hypertensive disorder 38 767265 I10 bp is elevated and not controlled Type 1 krystal betes mellitus 40256938 E10.8 a1c is pending sugars checked at [...] was good (he has not) Well adult 793123140 Z00 .00 95733592 Health Concerns Section Related Observation LastModified by Organization Detai ls LastModified Time None Recorded Concern Status LastModified by Organization Details LastModified Time None Recorded Advance Directives Directive None Recorded Payers Insurance Date Sequence Insurance Name Policy Number Policy Mcwilliams Covered Member ID Mcwilliams Member ID Guarantor Name 10/11/2025 1 [place] [employer] Zaid Becker [id number] Zaid Becker 08/10/2024 2 [facility] GLOBAL Zaid Becker [id number] Zaid Becker 10/11/2025 2 [place] [id number] Zaid Becker [id number] Zaid Becker Notes Date Note Type Note Provider Name and Address Organization Details Recorded Time 04/24/20 24 text/htm l ROS as noted in the HPI here for rechk and is doing better wellbutrin is working better and feels gooddoing weel more active and eating betterrelates that he Sandeep Dumont, DO [address] [place] [address], [place], [address], [facility] Internal Medicine 04/24/2024 12:27:25 08/10/20 24 text/htm l Care Management - HypertensionReported by PatientHPIFor self care, patient reportsnot under emotional stress. For severity, patient reportssymptoms are improvinganddoes not interfere with daily activities. For associated symptoms, patient reportsno dizziness,no lightheadedness,no chest pain,no shortness of breath,no palpitations,no edema,no calf muscle cramps,no blurred vision,no confusion,no headaches, andno fatigue. Care Management - DiabetesReported by PatientHPIFor self care, patient reportsseeing eye doctor yearly for dilated eye exam,checking feet regularly,normal range of home blood sugars (in the low 100s), andno side effects from medications. For associated symptoms, patient reportssymptoms are usually well controlled,no fatigue,no dizziness,no excessive sweating,no headaches,no confusion,no increased thirst,no increased appetite,no increased urination,no blurred vision,no numbness of feet, andno calluses on feet.ROS as noted in the HPI here for rechk of DM and BPstates he is feeling better with the lisinoprilseen at about week ago and given a brace for wrist pain seemed to get worse and felt he had a alprg3i is 7.2he is feeling better overallmore active and physical Sandeep Dumont DO [address] [place], [address], [facility] Internal Medicine 08/10/2024 20:07:53 12/04/19 25 text/htm l Care Management - DiabetesReported by PatientHPIFor self care, patient reportsside effects from medications: angioedemabut reportsseeing eye doctor yearly for dilated eye exam,checking feet regularly,normal range of home blood sugars (in the low 100s),no side effects from medications,hemoglobin a1c goal: __, andhemoglobin a1c levels have been: 7-8. For prognosis, patient reportsexpected outcome: improveandprognosis: good. For associated symptoms, patient reportssymptoms are usually well controlled,no fatigue,no dizziness,no excessive sweating,no headaches,no confusion,no increased thirst,no increased appetite,no increased urination,no blurred vision,no numbness of feet, andno calluses on feet. Care Management - HypertensionReported by PatientROS as noted in the HPI here for rechk of his dm and bprelates bp iss elevated dm is up Sandeep Dumont, DO [address] [place], [address], [facility] Internal Medicine 12/04/2024 10:10:05 02/18/20 25 text/htm l Care Management - HypertensionReported by PatientHPIFor self care, patient reportsnot under emotional stress. For severity, patient reportssymptoms are improvinganddoes not interfere with daily activities. For associated symptoms, patient reportsno dizziness,no lightheadedness,no chest pain,no shortness of breath,no palpitations,no edema,no calf muscle cramps,no blurred vision,no confusion,no headaches, andno fatigue. Care Management - DiabetesReported by PatientHPIFor self care, patient reportsseeing eye doctor yearly for dilated eye exam,checking feet regularly,normal range of home blood sugars (in the low 100s), andno side effects from medications. For associated symptoms, patient reportssymptoms are usually well controlled,no fatigue,no dizziness,no excessive sweating,no headaches,no confusion,no increased thirst,no increased appetite,no increased urination,no blurred vision,no numbness of feet, andno calluses on feet. Care Management - HyperlipidemiaReported by [facility] control, patient reportsusually well controlled,improving, andat goal. 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 Sandeep Dumont, DO [address] [place], [address], [facility] Internal Medicine 02/17/2025 12:24:22 05/31/20 25 text/htm l Care Management - HypertensionReported by [facility]Cut[facility] self care, patient reportsnot under emotional stress. For severity, patient reportssymptoms are improvinganddoes not interfere with daily activities. For associated symptoms, patient reportsno dizziness,no lightheadedness,no chest pain,no shortness of breath,no palpitations,no edema,no calf muscle cramps,no blurred vision,no confusion,no headaches, andno fatigue. Care Management - DiabetesReported by [facility]Cut[facility] self care, patient reportsseeing eye doctor yearly for dilated eye exam,checking feet regularly,normal range of home blood sugars (in the low 100s), andno side effects from medications. For associated symptoms, patient reportssymptoms are usually well controlled,no fatigue,no dizziness,no excessive sweating,no headaches,no confusion,no increased thirst,no increased appetite,no increased urination,no blurred vision,no numbness of feet, andno calluses on feet. Care Management - HyperlipidemiaReported by PatientHPIFor control, patient reportsusually well controlled,improving, andat goal. For complications, patient reportsno coronary artery disease,no heart attack,no cardiovascular disease,no pancreatitis, andno stroke. Medicare Annual Wellness VisitReported by PatientSocial/Behavioral HistoryFor diet and nutrition, patient reportshealthy diet. For fracture risk, patient reportsno history of fractures,no recent explained fracture,no sudden unexplained fractures, andno previous musculoskeletal injuries. For physical activity, patient reportsexercises on a regular basis,recent increase in physical activity, andgood physical condition.Mental Status:For depression risk, patient reportsnever feels sad, empty, or tearful,no loss of interest in activities,no significant changes in weight,no sleep disturbances or insomnia,no agitation,no loss of energy,no feelings of worthlessness or guilt,no thoughts of suicide,no history of depression, andno history of mood disorders. For orientation, patient reportsno disorientation to time,no disorientation to date, andno disorientation to place. For concentration and memory, patient reportsno decreased concentrating ability,no memory lapses or loss, anddoes not forget words. For speech/motor difficulties, patient reportsno speech difficulties,no difficulty expressing formulated concepts,no difficulty with fine manipulative tasks,no difficulty writing/copying,no slowed reaction time, anddoes not knock things over when trying to pick them up.Functional AbilityFor hearing, patient reportsno loss of hearing. For vision, patient reportsno vision problems. For activities of daily living, patient reportsable to bathe with limited or no assistance,able to contol urination and bowels,able to dress with limited or no assistance,able to feed self with limited or no assistance,able to get out of chair or bed with limited or no assistance,able to groom with limited or no assistance, andable to toilet with limited or no assistance. For instrumental activities of daily living, patient reportsable to do house work with limited or no assistance,able to grocery shop with limited or no assistance,able to manage medications with limited or no assistance,able to manage money with limited or no assistance,able to prepare meals with limited or no assistance, andable to use the phone with limited or no assistance. For falls risk assessment, patient reportsno frequent falls while walking,no fall in the past year,no fall since last visit, andno dizziness/vertigo. For home safety, patient reportsno unsafe alan hazzards,no unsafe stairs,no unsafe gas appliances,working smoke/co detectors,wears protective head gear for biking/high velocity,use of seatbelts,practicing 'safer sex',no vision or hearing loss while driving,no fire arms,has hand bars in the bathroom/shower, andgood lighting in the home. doing well !!relates has kept his weight offrelates feeling better now than in a long timeback is good since injectionshome bps are doing great all avg 120 /60'srelates shoulder is doing welleating oksloyda ok Sandeep Dumont, DO [address] [facility], [place], [address], [facility] 05/31/2025 11:17:41
--- OUTSIDE RECORDS SUMMARY | 2025-10-11 14:53 | XMS_ITS | Encounter Summary ---
Author Organization [facility] Address [address] [address] Phone Care Team Providers Care Tank Truck Operator Name Role Phone Sandeep Preston DO Primary Care Provider Encounter Details Date Type Department Care Team (Late st Contact Info) Description 03/02/2019 Procedure Pass [facility], [address] [address] Social History Tobacco Use Types Packs/Day Years [...] documented as of this encounter Care Teams Tank Truck Operator Relationship Specialty Start Date End Date Sandeep Preston DO PCP - General Internal Medicine 09/16/17 documented as of this encounter Additional Source Comments The information contained in this document represents components of the legal health record. It is not the complete legal health record.[facility]
--- OUTSIDE RECORDS SUMMARY | 2025-10-11 14:53 | XMS_ITS | Encounter Summary ---
Author Organization [facility] Address [address] [address] Phone Care Team Providers Care Probate Clerk Name Role Phone Sandeep Preston Primary Care Provider [phone] Encounter Details Date Type Department Care Team (Late st Contact Info) Description 02/21/2024 Procedure Pass [facility] Admitting Dept Virtual Department [address] [place] [address] Social History Tobacco Use Types Packs/Day Years [...] documented as of this encounter Care Teams Probate Clerk Relationship Specialty Start Date End Date Sandeep Preston DO [email or web address] PCP - General Internal Medicine 09/16/17 documented as of this encounter Additional Source Comments The information contained in this document represents components of the legal health record. It is not the complete legal health record.[facility]
--- OUTSIDE RECORDS SUMMARY | 2025-10-11 14:53 | XMS_ITS | Clinical Summary ---
Author Organization [facility] Address [address] [address] Phone Care Team Providers Care Music Professionals Name Role Phone Devorah Dumont DO Primary Care Provider [phone] Allergies Active Allergy Reactions Criticality Noted Date [...] COLONOSCOPY 1995 RSV VACCINE (1 - Risk 50-74 years 1-dose series) 2000 DIABETIC EYE EXAM 02/21/2024 BLOOD PRESSURE 01/31/2025 08/03/2024 INFLUENZA VACCINE (#1) 2025 , 07/26/2022, 10/10/2019, Additional history exists COVID-19 VACCINE (2024- season) 2025 09/03/2023, 08/07/2022, 05/23/2022, Additional history exists COLONOSCOPY 02/20/2027 02/21/2024 COLORECTAL CANCER SCREENING 02/20/2027 ZOSTER VACCINES Completed 07/26/2022, 03/06/2022 PNEUMOCOCCAL VACCINES [...] Skinner MD - 02/21/2024 2:23 PM EDT [facility] Patient Name: Zaid Becker Attending MD:: MIGUEL SKINNER MD, Procedure Date: 02/21/2024 2:23 PM Date of : 1950 Age: 73 Admit Type: Outpatient Gender: Male Room: [place] [address] Referring MD: DEVORAH DUMONT DO Exam Type: [...] monitored continuously. The Olympus adult variable colonoscope [id number] #7 was introduced through the anus and [...] 2:23 PM Procedure Date: 02/21/2024 2:23:24 PM [address] [place] [address] us Devorah Dumont DO GI PROCEDURE ORDERABLES Final Re sult from Last 3 Months or Most Recently Relevant to Health Maintenance Insurance MEDICARE PART A & B [facility] MEDEX SUPPLEMENT MEDICARE PART A & B Member Subscriber Plan / Payer ([facility] [employer] 12/12/2015-) Name:Eugenio, Zaid Katie Member ID:[id number] Relation to Subscriber:Self Name:Eugenio Zaid Katie Subscriber ID:[id number] Payer ID:[id number] Group ID:Not on file Type:Medicare Address: [facility] [address] [address] [employer] MEDEX SUPPLEMENT MEDICARE PART A & B [employer] MEDEX SUPPLEMENT MEDICARE PART A & B [employer] MEDEX SUPPLEMENT MEDICARE PART A & B [employer] MEDEX SUPPLEMENT MEDICARE PART A & B [employer] MEDEX SUPPLEMENT MEDICARE PART A & B [employer] MEDEX SUPPLEMENT MEDICARE PART A & B [employer] MEDEX SUPPLEMENT MEDICARE PART A & B [employer] CROSS MEDEX SUPPLEMENT Care Teams Music Professionals Relationship Specialty Start Date End Date Devorah Dumont DO [email or web address] PCP - General Internal Medicine 09/16/17 Additional Source Comments The information contained in this document represents components of the legal health record. It is not the complete legal health record.[facility]
--- OUTSIDE RECORDS SUMMARY | 2025-10-11 14:53 | XMS_ITS | Encounter Summary ---
Author Organization [facility] Address [address] [facility] [address] [place] [id number] Phone Care Team Providers Care Seat Installer Name Role Phone Sandeep Preston DO Primary Care Provider [phone] Encounter Details Date Type Department Care Team (Latest Contact Info) Description 10/22/2019 Transcribe Orders [address] [address] Jose Guadalupe Llanos MD [address] [place] [address], [address] [place] [address] [email or web address] Mixed erectile dysfunction (Primary Dx); Enlarged prostate [...] FREE TESTOSTERONE 5.27 3.47 - 13.0 ng/dL [facility] Comment: (NOTE) ADDITIONAL INFORMATION Testing performed by [facility]. This test was developed and its performance characteristics determined by [facility] in a manner consistent with CLIA requirements. This test has not been cleared or approved by the U.S. Food and Drug Administration. TESTOSTERONE, TOTAL 229(L) 240 - 950 ng/dL [facility] Comment: (NOTE) ADDITIONAL INFORMATION Testing performed by Liquid Chromatography-Tandem Mass Spectrometry (LC-MS/MS). This test was developed and its performance characteristics determined by [facility] in a manner consistent with CLIA requirements. This test has not been cleared or approved by the U.S. Food and Drug Administration. Blood 10/22/2019 10:5 3 AM EST 10/22/2019 11:22 AM EST Jose Guadalupe Llanos MD LAB BLOOD BKR ORDERABLES Final Result Performing Organization Address City/[facility]/ZIP Co de Phone Number [facility] [address] [place] [address] * PSA (screening) (10/22/2019 10:53 AM EST) PSA 1.55 0 - 4.00 ng/mL [facility] Blood 10/22/2019 10:5 3 AM EST 10/22/2019 11:23 AM EST Jose Guadalupe Llanos MD LAB BLOOD BKR ORDERABLES Final Result Performing Organization Address City/[facility] Co de Phone Number [address] [address] documented in this encounter Visit Diagnoses Diagnosis Mixed erectile dysfunction- Primary Enlarged prostate with urinary obstruction Hypertrophy of prostate with urinary obstruction and other lower urinary tract symptoms (LUTS) documented in this encounter Additional Health Concerns Infection Onset Date Last Indicated Resolved Time CDiff-Risk 02/21/2024 02/21/2024 02/21/2024 5:02 PM EDT documented as of this encounter Care Teams Seat Installer Relationship Specialty Start Date End Date Sandeep Preston DO PCP - General Internal Medicine 09/16/17 documented as of this encounter Additional Source Comments The information contained in this document represents components of the legal health record. It is not the complete legal health record.[facility]
--- OUTSIDE RECORDS SUMMARY | 2025-10-11 14:54 | XMS_ITS | Encounter Summary ---
Author Organization [facility] Address [address] [address] Phone Care Team Providers Care Drug And Alcohol Counsellor Name Role Phone Sandeep Preston DO Primary Care Provider [phone] Encounter Details Date Type Department Care Team ([facility] st Contact Info) Description 01/22/2024 Transcribe Orders Virtual Department [address] [place] [address] Sandeep Preston DO [address] [facility] [place] [address] [place] [address] [email or web address] LLQ pain (Primary Dx) Social History Tobacco [...] documented as of this encounter Care Teams Drug And Alcohol Counsellor Relationship Specialty Start Date End Date KarySandeep DO Scarlet [email or web address] PCP - General Internal Medicine 09/16/17 documented as of this encounter Additional Source Comments The information contained in this document represents components of the legal health record. It is not the complete legal health record.[facility]
--- OUTSIDE RECORDS SUMMARY | 2025-10-11 14:54 | XMS_ITS | Encounter Summary ---
Author Organization [facility] Address [address] [address] Phone Care Team Providers Care Imaging Aide Name Role Phone Sandeep Preston Primary Care Provider [phone] Encounter Details Date Type Department Care Team (Late st Contact Info) Description 02/21/2024 Procedure Pass [facility] Endoscopy Admitting Dept Virtual Department [address] [place] [address] Social History Tobacco Use Types Packs/Day Years [...] documented as of this encounter Care Teams Imaging Aide Relationship Specialty Start Date End Date Sandeep Preston DO [email or web address] PCP - General Internal Medicine 09/16/17 documented as of this encounter Additional Source Comments The information contained in this document represents components of the legal health record. It is not the complete legal health record.[facility]
== END 2025-10-11 11:21 | disposition home or self-care (01) ==
LOC: HO.MANLDS 11:20
PROVIDERS: Visit Provider Internal Medicine
DX: Z00.00 Encounter for general adult medical examination without abnormal findings (principal); Z13.6 Encounter for screening for cardiovascular disorders; Z12.11 Encounter for screening for malignant neoplasm of colon; E10.8 Type 1 diabetes mellitus with unspecified complications; Z12.5 Encounter for screening for malignant neoplasm of prostate
CPT/HCPCS: 36415; 80053; 80061; 83036; 84153; 85025